=== PATIENT | female | born 1990 | race Caucasian/White ===

== ENCOUNTER 2017-09-07 11:58 | Emergency (ER) | payer MEDICAID, OTHER ==
[~2017-09-07] VITALS: Ht 165.1 cm; Wt 54.4 kg
[~2017-09-07 11:58] MED LIST: AMOX-355 PO; HYDR1TAB PO; HYDR1TAB66 PO; PRD20T PO; PS30T PO; prednisone PO
--- OUTSIDE RECORDS SUMMARY | 2017-09-07 12:07 | XMS REPORT | Clinical Summary ---
Author Author Admin, MARY Organization [facility] Address Unknown Phone Unavailable Allergies, Adverse Reactions, Alerts Allergy Name Reaction Description Start Date Severity Status Provider No Known Allergies Carmen MONTOYA Conditions or Problems Problem Name Problem Code Onset Date Status Entry Date Provider Comment Standard Description Annotate SINUSITIS, ACUTE 461.9 Resolved Twin Franks MD Acute sinusitis, unspecified ROUTINE GYNECOLOGICAL EXAMINATION V72.31 Active Twin Franks MD Routine gynecological examination CONTRACEPTIVE MANAGEMENT V25.09 Active Twin Franks MD Encounter for other general counseling and advice on contraceptive management SINUSITIS, ACUTE 461.9 Resolved Karen Cummins MD PhD Acute sinusitis, unspecified HEADACHE, TENSION 307.81 Resolved Karen Cummins MD PhD Tension headache Vaginitis 616.10 Resolved Twin Franks MD Vaginitis and vulvovaginitis, unspecified UTI 599.0 Resolved Twin Franks MD Urinary tract infection, site not specified Sinusitis, acute 461.9 Active Twin Franks MD Acute sinusitis, unspecified Vaginal discharge 623.5 Active Twin Franks MD Leukorrhea, not specified as infective SINUSITIS, ACUTE ICD-461.9 Inactive Twin Franks MD SINUSITIS, ACUTE ICD-461.9 Inactive Karen Cummins MD PhD HEADACHE, TENSION ICD-307.81 Inactive Karen Cummins MD PhD Vaginitis ICD-616.10 Inactive Twin Franks MD UTI ICD-599.0 Inactive Twin Franks MD Medication List Medication Instructions Start Date Stop Date Generic Name NDC Status Provider Patient Instruction PREDNISONE 20 MG ORAL TABS 2 po qd x 3 days PREDNISONE 34968682764 No Longer Active Twin Franks MD Active AMOXICILLIN 500 MG ORAL CAPS 1 po TID x 10 days AMOXICILLIN 65325084721 Active Twin Franks MD Active CIPRO 500 MG TAB 1 tablet by mouth twice daily CIPROFLOXACIN HCL 57038096101 No Longer Active Lev Huang MD Active FIORICET 325-50-40 MG TAB 1 tablet by mouth four times daily as needed 05/27 [id number] 71912427087 No Longer Active Lev Huang MD Active FLAGYL 500 MG TABS 1 pill by mouth twice daily METRONIDAZOLE 83935193905 No Longer Active Karen Cummins MD PhD Active PREDNISONE 20 MG TAB 2 tabs daily for 4 days, 1 tab daily for 4 days, 1/2 tab daily for 4 days PREDNISONE 64992854231 No Longer Active Karen Cummins MD PhD Active AMOXICILLIN 500 MG CAPS 2 po BID x 10 days AMOXICILLIN 54025727074 No Longer Active Twin Franks MD Active IBUPROFEN 800 MG TABS 1 tab every 8 hours as needed IBUPROFEN 73974270370 No Longer Active Twin Franks MD Active FLONASE 50 MCG/ACT SUSP 2 puffs in each nostril daily FLUTICASONE PROPIONATE 14428808364 No Longer Active Twin Franks MD Active AMOXICILLIN 500 MG CAPS 2 po BID x 10 days AMOXICILLIN 62172697139 No Longer Active Twin Franks MD Active AMOXICILLIN 500 MG CAPS 2 po BID x 10 days AMOXICILLIN 76668492326 No Longer Active Twin Franks MD Active FLONASE 50 MCG/ACT SUSP 2 puffs in each nostril daily FLONASE 50 MCG/ACT SUSP 7446643 FLUTICASONE PROPIONATE Inactive IBUPROFEN 800 MG TABS 1 tab every 8 hours as needed IBUPROFEN 800 MG TABS 194192 IBUPROFEN Inactive PREDNISONE 20 MG TAB 2 tabs daily for 4 days, 1 tab daily for 4 days, 1/2 tab daily for 4 days PREDNISONE 20 MG TAB 751248 PREDNISONE Inactive FIORICET 325-50-40 MG TAB 1 tablet by mouth four times daily as needed 05/27 FIORICET 325-50-40 MG TAB [id number] Inactive AMOXICILLIN 500 MG CAPS 2 po BID x 10 days AMOXICILLIN 500 MG CAPS 835100 AMOXICILLIN Inactive AMOXICILLIN 500 MG CAPS 2 po BID x 10 days AMOXICILLIN 500 MG CAPS 615616 AMOXICILLIN Inactive AMOXICILLIN 500 MG CAPS 2 po BID x 10 days AMOXICILLIN 500 MG CAPS 334547 AMOXICILLIN Inactive FLAGYL 500 MG TABS 1 pill by mouth twice daily FLAGYL 500 MG TABS 671231 METRONIDAZOLE Inactive CIPRO 500 MG TAB 1 tablet by mouth twice daily CIPRO 500 MG TAB 679261 CIPROFLOXACIN HCL Inactive PREDNISONE 20 MG ORAL TABS 2 po qd x 3 days PREDNISONE 20 MG ORAL TABS 493646 PREDNISONE Inactive Vital Signs Date Name Value Unit Range Description blood pressure, diastolic 75 mm[Hg] BP lee blood pressure, systolic 113 mm[Hg] BP sys height E&M 65 [in_us] Bdy height pulse rate E&M 93 /min Heart rate temperature E&M 96.6 [degF] Body temperature weight E&M 107.8 [lb_av] Weight Measured blood pressure, diastolic 74 mm[Hg] BP lee blood pressure, systolic 114 mm[Hg] BP sys height E&M 65 [in_us] Bdy height pulse rate E&M 78 /min Heart rate temperature E&M 98.0 [degF] Body temperature weight E&M 119.5 [lb_av] Weight Measured Diagnostic Results Date Name Value Unit Range Description Lab Report: Chlamydia/GC APTIMA/35175 - Lab chlamydia DNA probe NOT DETECTED NOT DETECTED Lab Report: Chlamydia/GC APTIMA/33098 - Microbiology Neisseria gonorrhoeae DNA probe NOT DETECTED NOT DETECTED Encounters Code Encounter Date Provider Facility CPT-61972 Level 4 Est. Patient 16:40:46 CDT Twin Franks MD [facility] CPT-57976 Level 3 Est. Patient 14:26:47 CDT Lev Huang MD [facility] CPT-77396 Level 3 Est. Patient 15:32:55 CDT Karen Cummins MD PhD [facility] CPT-17126 Level 3 Est. Patient 16:58:58 CDT Twin Franks MD [facility] CPT-37451 Level 3 Est. Patient 15:10:24 CDT Twin Franks MD [facility] CPT-16581 Level 3 Est. 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 Patient 16:59:32 DIRECTOR OF INDUSTRIAL RELATIONS Twin Franks MD [facility] Procedures Code Procedure Name Date Entry Date Standard Description CPT-61052 Spec Collection and Handling Fee 16:40:47 CDT CPT-J1055 Depo Provera 150 mg (Medroxyprogesterone) 09:01:32 CDT CPT-71632 Abx/Therapy Injection 09:01:32 CDT CPT-54689 Abx/Therapy Injection 11:43:35 CDT CPT-J1055 Depo Provera 150 mg (Medroxyprogesterone) 15:22:54 CDT CPT-70879 Spec Collection and Handling Fee 15:10:24 CDT
--- OUTSIDE RECORDS SUMMARY | 2017-09-07 12:07 | XMS REPORT | Clinical Summary ---
Author Author Admin, MARY Organization [facility] Address Unknown Phone Unavailable Allergies, Adverse Reactions, Alerts Allergy Name Reaction Description Start Date Severity Status Provider No Known Allergies Arianna Raida Conditions or Problems Problem Name Problem Code [...] Cummins MD PhD Tension headache Vaginitis 616.10 Active Karen Cummins MD PhD Vaginitis and vulvovaginitis, unspecified UTI 599.0 Active Lev Huang MD Urinary tract infection, site not specified SINUSITIS, ACUTE ICD-461.9 Inactive Twin Franks MD SINUSITIS, ACUTE ICD-461.9 Inactive Karen Cummins MD PhD HEADACHE, TENSION ICD-307.81 Inactive Karen Cummins MD PhD Medication List Medication Instructions Start Date Stop Date Generic Name NDC Status Provider Patient Instruction CIPRO 500 MG TAB 1 tablet by mouth twice daily CIPROFLOXACIN HCL 79314167104 No Longer Active Lev Huang MD Active FIORICET 325-50-40 MG TAB 1 tablet by mouth four times daily as needed 05/27 [id number] 36113035149 No Longer Active Lev Huang MD Active FLAGYL 500 MG TABS 1 pill by mouth twice daily METRONIDAZOLE 97010490795 No Longer Active Karen Cummins MD PhD Active PREDNISONE 20 MG TAB 2 tabs daily for 4 days, 1 tab daily for 4 days, 1/2 tab daily for 4 days PREDNISONE 22108086115 No Longer Active Karen Cummins MD PhD Active AMOXICILLIN 500 MG CAPS 2 po BID x 10 days AMOXICILLIN 67212654842 No Longer Active Twin Franks MD Active IBUPROFEN 800 MG TABS 1 tab every 8 hours as needed IBUPROFEN 44673619315 No Longer Active Twin Franks MD Active FLONASE 50 MCG/ACT SUSP 2 puffs in each nostril daily FLUTICASONE PROPIONATE 17265873862 No Longer Active Twin Franks MD Active AMOXICILLIN 500 MG CAPS 2 po BID x 10 days AMOXICILLIN 28740758957 No Longer Active Twin Franks MD Active AMOXICILLIN 500 MG CAPS 2 po BID x 10 days AMOXICILLIN 90751140660 No Longer Active Twin Franks MD Active FLONASE 50 MCG/ACT SUSP 2 puffs in each nostril daily FLONASE 50 MCG/ACT SUSP FLUTICASONE PROPIONATE Inactive IBUPROFEN 800 MG TABS 1 tab every 8 hours as needed IBUPROFEN 800 MG TABS 378412 IBUPROFEN Inactive PREDNISONE 20 MG TAB 2 tabs daily for 4 days, 1 tab daily for 4 days, 1/2 tab daily for 4 days PREDNISONE 20 MG TAB 541190 PREDNISONE Inactive FIORICET 325-50-40 MG TAB 1 tablet by mouth four times daily as needed 05/27 FIORICET 325-50-40 MG TAB [id number] Inactive AMOXICILLIN 500 MG CAPS 2 po BID x 10 days AMOXICILLIN 500 MG CAPS 730193 AMOXICILLIN Inactive AMOXICILLIN 500 MG CAPS 2 po BID x 10 days AMOXICILLIN 500 MG CAPS 727887 AMOXICILLIN Inactive AMOXICILLIN 500 MG CAPS 2 po BID x 10 days AMOXICILLIN 500 MG CAPS 323612 AMOXICILLIN Inactive FLAGYL 500 MG TABS 1 pill by mouth twice daily FLAGYL 500 MG TABS 123638 METRONIDAZOLE Inactive CIPRO 500 MG TAB 1 tablet by mouth twice daily CIPRO 500 MG TAB 107294 CIPROFLOXACIN HCL Inactive Vital Signs Date Name Value Unit Range Description blood pressure, diastolic - 8462-4 74 mm[Hg] BP lee blood pressure, systolic - 8480-6 114 mm[Hg] BP sys height E&M - 8302-2 65 [in_us] Bdy height pulse rate E&M - 8867-4 78 /min Heart rate temperature E&M 98.0 [degF] Body temperature weight E&M - 3141-9 119.5 [lb_av] Weight Measured Encounters Code Encounter Date Provider Facility CPT-53496 Level 3 Est. Patient 14:26:47 CDT Lev Huang MD [facility] CPT-18853 Level 3 Est. Patient 15:32:55 CDT Karen Cummins MD PhD [facility] CPT-10919 Level 3 Est. Patient 16:58:58 CDT Twin Franks MD [facility] CPT-25717 Level 3 Est. Patient 15:10:24 CDT Twin Franks MD [facility] CPT-85581 Level 3 Est. 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
--- OUTSIDE RECORDS SUMMARY | 2017-09-07 12:08 | XMS REPORT | Clinical Summary ---
Author Author Admin, MARY Organization [facility] Address Unknown Phone Unavailable Allergies, Adverse Reactions, Alerts Allergy Name Reaction Description Start Date Severity Status Provider No Known Allergies Jenni Lyman MA Conditions or Problems Problem Name Problem Code [...] infection, site not specified Sinusitis, acute 461.9 Resolved Twin Franks MD Acute sinusitis, unspecified Vaginal discharge 623.5 Resolved Twin Franks MD Leukorrhea, not specified as infective Headache 784.0 Active Jillina Harjinder GUERRERO Headache Drug abuse 305.90 Active Jillina Frazell DRUM STRAIGHTENER Other, mixed, or unspecified drug abuse, unspecified use Anxiety 300.00 Active Jillina Frazell DRUM STRAIGHTENER Anxiety state, unspecified DYSURIA 788.1 Resolved Twin Franks MD Dysuria Urinary tract infection 599.0 Active Twin Franks MD Urinary tract infection, site not specified Vaginal discharge 623.5 Active Sasha Grande APRN Leukorrhea, not specified as infective SINUSITIS, ACUTE ICD-461.9 Inactive Karen Cummins MD PhD HEADACHE, TENSION ICD-307.81 Inactive Karen Cummins MD PhD SINUSITIS, ACUTE ICD-461.9 Inactive Twin Franks MD Sinusitis, acute ICD-461.9 Inactive Twin Franks MD Vaginal discharge ICD-623.5 Inactive Twin Franks MD DYSURIA ICD-788.1 Inactive Twin Franks MD 08/07 Vaginitis ICD-616.10 Inactive Twin Franks MD UTI ICD-599.0 Inactive Twin Franks MD Medication List Medication Instructions Start Date Stop Date Generic Name NDC Status Provider Patient Instruction FLAGYL 500 MG ORAL TABLET 4 tabs (2gms) po x1. do not mix with ETOH METRONIDAZOLE 31937914106 Active Sasha Grande APRN Active MACROBID 100 MG ORAL CAPSULE 1 cap by mouth twice daily NITROFURANTOIN MONOHYD MACRO 07949095884 Active Geraldllina Harjinder GUERRERO Active BACTRIM DS 800-160 MG ORAL TABLET 1 po BID x 7 days SULFAMETHOXAZOLE-TRIMETHOPRIM 90648255911 No Longer Active Twin Franks MD Active CELEXA 20 MG ORAL TABLET Take one tab po daily CITALOPRAM HYDROBROMIDE 24802637563 Active Twin Franks MD Active PHENAZOPYRIDINE HCL 100 MG ORAL TABLET 1 tab po bid PHENAZOPYRIDINE HCL 29217854631 No Longer Active Twin Franks MD Active CIPRO 500 MG ORAL TABLET 1 tablet by mouth twice daily CIPROFLOXACIN HCL 18388553943 No Longer Active Twin Franks MD Active TRAMADOL HCL 50 MG ORAL TABLET 1-2 tablets every 6 hours as needed for pain TRAMADOL HCL 58244967492 No Longer Active Jillina Frazell DRUM STRAIGHTENER Active CYCLOBENZAPRINE HCL 10 MG ORAL TABLET 1 tab po q pm, prn tamayo CYCLOBENZAPRINE HCL 53738383316 No Longer Active Jillina Frazell DRUM STRAIGHTENER Active DIFLUCAN 100 MG ORAL TABLET 1 tablet by mouth x 1 FLUCONAZOLE 99314871436 No Longer Active Jillina Frazell DRUM STRAIGHTENER Active BUSPIRONE HCL 7.5 MG ORAL TABLET 1 pill twice daily, for anxiety BUSPIRONE HCL 77922456699 No Longer Active Jillina Frazell DRUM STRAIGHTENER Active FLAGYL 500 MG ORAL TABLET 1 tab po bid for 7 days METRONIDAZOLE 17607840493 No Longer Active Jillina Fraalessandral DRUM STRAIGHTENER Active PREDNISONE 20 MG ORAL TABLET 2 po qd x 3 days PREDNISONE 81942192442 No Longer Active Twin Franks MD Active AMOXICILLIN 500 MG ORAL CAPSULE 1 po TID x 10 days AMOXICILLIN 59480484665 No Longer Active Twin Franks MD Active CIPRO 500 MG ORAL TABLET 1 tablet by mouth twice daily CIPROFLOXACIN HCL 73699173220 No Longer Active Lev Huang MD Active FIORICET 325-50-40 MG TAB 1 tablet by mouth four times daily as needed 05/27 [id number] 50920548569 No Longer Active Lev Huang MD Active FLAGYL 500 MG ORAL TABLET 1 pill by mouth twice daily METRONIDAZOLE 50858441859 No Longer Active Karen Cummins MD PhD Active PREDNISONE 20 MG ORAL TABLET 2 tabs daily for 4 days, 1 tab daily for 4 days, 1/2 tab daily for 4 days PREDNISONE 48394541817 No Longer Active Karen Cummins MD PhD Active AMOXICILLIN 500 MG ORAL CAPSULE 2 po BID x 10 days AMOXICILLIN 24704129406 No Longer Active Twin Franks MD Active IBUPROFEN 800 MG ORAL TABLET 1 tab every 8 hours as needed 03/15 IBUPROFEN 76340398224 No Longer Active Twin Franks MD Active FLONASE 50 MCG/ACT NASAL SUSPENSION 2 puffs in each nostril daily FLUTICASONE PROPIONATE 84135723343 No Longer Active Twin Franks MD Active AMOXICILLIN 500 MG ORAL CAPSULE 2 po BID x 10 days AMOXICILLIN 47342487944 No Longer Active Twin Franks MD Active AMOXICILLIN 500 MG ORAL CAPSULE 2 po BID x 10 days AMOXICILLIN 55425763783 No Longer Active Twin Franks MD Active FLONASE 50 MCG/ACT NASAL SUSPENSION 2 puffs in each nostril daily FLONASE 50 MCG/ACT NASAL SUSPENSION 9681823 FLUTICASONE PROPIONATE Inactive IBUPROFEN 800 MG ORAL TABLET 1 tab every 8 hours as needed 03/15 IBUPROFEN 800 MG ORAL TABLET 281593 IBUPROFEN Inactive PREDNISONE 20 MG ORAL TABLET 2 tabs daily for 4 days, 1 tab daily for 4 days, 1/2 tab daily for 4 days PREDNISONE 20 MG ORAL TABLET 884664 PREDNISONE Inactive FIORICET 325-50-40 MG TAB 1 tablet by mouth four times daily as needed 05/27 FIORICET 325-50-40 MG TAB [id number] Inactive FLAGYL 500 MG ORAL TABLET 1 tab po bid for 7 days FLAGYL 500 MG ORAL TABLET 247151 METRONIDAZOLE Inactive BUSPIRONE HCL 7.5 MG ORAL TABLET 1 pill twice daily, for anxiety BUSPIRONE HCL 7.5 MG ORAL TABLET 496138 BUSPIRONE HCL Inactive DIFLUCAN 100 MG ORAL TABLET 1 tablet by mouth x 1 DIFLUCAN 100 MG ORAL TABLET 052193 FLUCONAZOLE Inactive CYCLOBENZAPRINE HCL 10 MG ORAL TABLET 1 tab po q pm, prn tamayo 10/11 CYCLOBENZAPRINE HCL 10 MG ORAL TABLET 185566 CYCLOBENZAPRINE HCL Inactive TRAMADOL HCL 50 MG ORAL TABLET 1-2 tablets every 6 hours as needed for pain TRAMADOL HCL 50 MG ORAL TABLET 289808 TRAMADOL HCL Inactive CIPRO 500 MG ORAL TABLET 1 tablet by mouth twice daily CIPRO 500 MG ORAL TABLET 544449 CIPROFLOXACIN HCL Inactive PHENAZOPYRIDINE HCL 100 MG ORAL TABLET 1 tab po bid PHENAZOPYRIDINE HCL 100 MG ORAL TABLET 2024643 PHENAZOPYRIDINE HCL Inactive AMOXICILLIN 500 MG ORAL CAPSULE 2 po BID x 10 days AMOXICILLIN 500 MG ORAL CAPSULE 727298 AMOXICILLIN Inactive AMOXICILLIN 500 MG ORAL CAPSULE 2 po BID x 10 days AMOXICILLIN 500 MG ORAL CAPSULE 411039 AMOXICILLIN Inactive AMOXICILLIN 500 MG ORAL CAPSULE 2 po BID x 10 days AMOXICILLIN 500 MG ORAL CAPSULE 263398 AMOXICILLIN Inactive FLAGYL 500 MG ORAL TABLET 1 pill by mouth twice daily FLAGYL 500 MG ORAL TABLET 700510 METRONIDAZOLE Inactive CIPRO 500 MG ORAL TABLET 1 tablet by mouth twice daily CIPRO 500 MG ORAL TABLET 989023 CIPROFLOXACIN HCL Inactive AMOXICILLIN 500 MG ORAL CAPSULE 1 po TID x 10 days AMOXICILLIN 500 MG ORAL CAPSULE 703720 AMOXICILLIN Inactive PREDNISONE 20 MG ORAL TABLET 2 po qd x 3 days PREDNISONE 20 MG ORAL TABLET 864577 PREDNISONE Inactive BACTRIM DS 800-160 MG ORAL TABLET 1 po BID x 7 days BACTRIM DS 800-160 MG ORAL TABLET 371852 SULFAMETHOXAZOLE-TRIMETHOPRIM Inactive Vital Signs Date Name Value Unit Range Description blood pressure, diastolic 73 mm[Hg] BP lee blood pressure, systolic 122 mm[Hg] BP sys height E&M 65 [in_us] Bdy height pulse rate E&M 72 /min Heart rate temperature E&M 98.1 [degF] Body temperature weight E&M 118 [lb_av] Weight Measured blood pressure, diastolic 88 mm[Hg] BP lee blood pressure, systolic 119 mm[Hg] BP sys height E&M 65 [in_us] Bdy height pulse rate E&M 98 /min Heart rate temperature E&M 98.3 [degF] Body temperature weight E&M 109.0 [lb_av] Weight Measured blood pressure, diastolic 78 mm[Hg] BP lee blood pressure, systolic 14 mm[Hg] BP sys height E&M 65 [in_us] Bdy height pulse rate E&M 87 /min Heart rate temperature E&M 98.1 [degF] Body temperature weight E&M 113 [lb_av] Weight Measured blood pressure, diastolic 65 mm[Hg] BP lee blood pressure, systolic 107 mm[Hg] BP sys pulse rate E&M 74 /min Heart rate temperature E&M 97.0 [degF] Body temperature weight E&M 110.19 [lb_av] Weight Measured blood pressure, diastolic 75 mm[Hg] BP lee [...] Name Value Unit Range Description Lab Report: CBC W/DIFF, UHCG, UADIP W/MICRO, AUTO - Chemistry human chorionic gonadotropin, urine, qualitative (urine test) Negative Negative protein, total urine random Negative mg/dL Negative RBC, urine, dipstick Trace-intact Negative Lab Report: CBC W/DIFF, UHCG, UADIP W/MICRO, AUTO - Hematology leukocyte count, blood 7.4 10^3/MM^3 10*3/mm3 4.6-10.2 neutrophils as percent of blood leukocytes 63.2 % 42.2-75.2 monocytes as percent of blood leukocytes 5.7 % 1.7-9.3 lymphocytes as percent of blood leukocytes 24.2 % 20.5-51.1 erythrocyte (RBC) count 4.46 10^6/MM^3 10*6/mm3 3.80-5.80 hemoglobin, blood 15.0 g/dL 12.0-16.0 hematocrit, blood 43.5 % 37.0-47.0 mean corpuscular volume, RBC 97 fL 80-97 mean corpuscular hemoglobin, RBC 33.6 pg 27.0-31.2 mean corpuscular hemoglobin concentration, RBC 34.5 G/DL % 31.8- 35.4 red blood cell distribution width 12.5 % 13.0-18.0 platelet count 229 10^3/MM^3 10*3/mm3 142-424 Lab Report: CBC W/DIFF, UHCG, UADIP W/MICRO, AUTO - Urinalysis glucose, urine, semiquantitative Negative Negative ketones, urine, by test strip Negative Negative bilirubin, urine Negative Negative urine color Light yellow Colorless;Lightyellow;Straw;Yellow appearance, urine Slightly Cloudy Clear specific gravity, urine 1.010 1.000-1.030 pH, urine, semiquantitative 7.0 5.0-8.5 urobilinogen, urine, semiquantitative (dipstick) 0.2 E.U./dL Normal leukocyte esterase, urine, by dipstick 1+ Negative nitrite, urine, semiquantitative Negative Negative Lab Report: Chlamydia/GC APTIMA/93358 - Lab chlamydia DNA probe NOT DETECTED NOT DETECTED chlamydia DNA probe NOT DETECTED NOT DETECTED chlamydia DNA probe NOT DETECTED NOT DETECTED Lab Report: Chlamydia/GC APTIMA/70950 - Microbiology Neisseria gonorrhoeae DNA probe NOT DETECTED NOT DETECTED Neisseria gonorrhoeae DNA probe NOT DETECTED NOT DETECTED Neisseria gonorrhoeae DNA probe NOT DETECTED NOT DETECTED Lab Report: Comp. Metabolic Panel, Free Thyroxine (L), Thyroid Stimulati ... - Chemistry sodium, serum 140 mmol/L 620-212 1428/08/16 carbon dioxide, venous blood 32.2 mmol/L 21.0-32.0 potassium, serum 4.5 mmol/L 3.5-5.2 chloride, serum 106 mmol/L 98-107 blood glucose 85 mg/dL 65-110 urea nitrogen, blood 6 mg/dL 7-18 creatinine, serum 0.71 mg/dL 0.60-1.30 alanine aminotransferase (SGPT), serum 28 U/L 12-78 aspartate aminotransferase (SGOT), serum 19 U/L 15-37 calcium, serum 9.0 mg/dL 8.5-10.1 bilirubin, serum, total 0.50 mg/dL 0.00-1.00 thyroxine, serum, free 0.92 ng/dL 0.59-1.17 TSH 0.77 m[iU]/mL 0.36-3.74 Lab Report: UADIP W/MICRO, AUTO - Urinalysis urine color Unable to read macroscopic due to interfering substance Colorless;Lightyellow;Straw;Yellow appearance, urine orange hazy Clear Lab Report: UADIP W/MICRO, AUTO, Wet Prep - Chemistry protein, total urine random Negative mg/dL Negative RBC, urine, dipstick Negative Negative Lab Report: UADIP W/MICRO, AUTO, Wet Prep - Urinalysis urobilinogen, urine, semiquantitative (dipstick) 0.2 E.U./dL Normal leukocyte esterase, urine, by dipstick 3+ Negative nitrite, urine, semiquantitative Negative Negative glucose, urine, semiquantitative Negative Negative ketones, urine, by test strip Negative Negative bilirubin, urine Negative Negative urine color Dark yellow Colorless;Lightyellow;Straw;Yellow appearance, urine Cloudy Clear specific gravity, urine 1.015 1.000-1.030 pH, urine, semiquantitative 6.0 5.0-8.5 Encounters Code Encounter Date Provider Facility CPT-80294 Level 3 Est. 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 Patient 16:51:52 CDT Twin Franks MD [facility] CPT-72396 Level 3 Est. Patient 10:46:44 CDT Sasha Grande [facility] CPT-84109 Level 3 Est. Patient 11:22:49 CDT Sasha Grande [facility] CPT-84736 Level 4 Est. Patient 16:40:46 CDT Twin Franks MD [facility] CPT-83301 Level 3 Est. Patient 14:26:47 CDT Lev Huang MD [facility] CPT-09487 Level 3 Est. Patient 15:32:55 CDT Karen Cummins MD PhD [facility] CPT-76389 Level 3 Est. Patient 16:58:58 CDT Twin Franks MD [facility] CPT-70404 Level 3 Est. Patient 15:10:24 CDT Twin Franks MD [facility] CPT-53750 Level 3 Est. 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 Patient 16:59:32 HUMAN RESOURCES BENEFITS SPECIALIST Twin Franks MD [facility] Procedures Code Procedure Name Date Entry Date Standard Description CPT-56967 Spec Collection and Handling Fee 11:23:53 HUMAN RESOURCES BENEFITS SPECIALIST CPT-32105 IM or SQ Injection 12:06:22 CDT CPT-J1885 Toradol 30 mg (Ketorolac) 11:30:17 CDT CPT-61469 Spec Collection and Handling Fee 16:40:47 CDT CPT-J1055 Depo Provera 150 mg (Medroxyprogesterone) 09:01:32 CDT CPT-71878 Abx/Therapy Injection 09:01:32 CDT CPT-91849 Abx/Therapy Injection 11:43:35 CDT CPT-J1055 Depo Provera 150 mg (Medroxyprogesterone) 15:22:54 CDT CPT-62269 Spec Collection and Handling Fee 15:10:24 CDT
--- OUTSIDE RECORDS SUMMARY | 2017-09-07 12:09 | XMS REPORT | Clinical Summary ---
Author Author Admin, MARY Organization [facility] Address Unknown Phone Unavailable Allergies, Adverse [...] Headache Drug abuse 305.90 Active Jillina Frazell SENIOR STOCK PLAN ADMINISTRATOR Other, mixed, or unspecified drug abuse, unspecified use Anxiety 300.00 Active Jillina Frazell SENIOR STOCK PLAN ADMINISTRATOR Anxiety state, unspecified DYSURIA 788.1 Resolved Twin Franks MD Dysuria Urinary tract infection 599.0 Active Twin Franks MD Urinary tract infection, site not specified SINUSITIS, ACUTE ICD-461.9 Inactive Twin Franks MD SINUSITIS, ACUTE ICD-461.9 Inactive Karen Cummins MD PhD HEADACHE, TENSION ICD-307.81 Inactive Karen Cummins MD PhD Vaginitis ICD-616.10 Inactive Twin Franks MD UTI ICD-599.0 Inactive Twin Franks MD Sinusitis, acute ICD-461.9 Inactive Twin Franks MD Vaginal discharge ICD-623.5 Inactive Twin Franks MD DYSURIA ICD-788.1 Inactive Twin Franks MD 08/07 Medication List Medication Instructions Start Date Stop Date Generic Name NDC Status Provider Patient Instruction BACTRIM DS 800-160 MG ORAL TABS 1 po BID x 7 days SULFAMETHOXAZOLE-TRIMETHOPRIM 38143502147 Active Twin Franks MD Active CELEXA 20 MG ORAL TABLET Take one tab po daily CITALOPRAM HYDROBROMIDE 67652458608 Active Twin Franks MD Active PHENAZOPYRIDINE HCL 100 MG ORAL TABS 1 tab po bid PHENAZOPYRIDINE HCL 08668845089 No Longer Active Twin Franks MD Active CIPRO 500 MG TAB 1 tablet by mouth twice daily CIPROFLOXACIN HCL 58690922740 No Longer Active Twin Franks MD Active TRAMADOL HCL 50 MG TABS 1-2 tablets every 6 hours as needed for pain TRAMADOL HCL 86416498560 No Longer Active Jillina Frazell SENIOR STOCK PLAN ADMINISTRATOR Active CYCLOBENZAPRINE HCL 10 MG TABS 1 tab po q pm, prn tamayo CYCLOBENZAPRINE HCL 19431613368 No Longer Active Jillina Frazell SENIOR STOCK PLAN ADMINISTRATOR Active DIFLUCAN 100 MG TAB 1 tablet by mouth x 1 FLUCONAZOLE 85974474215 No Longer Active Jillina Frazell SENIOR STOCK PLAN ADMINISTRATOR Active BUSPIRONE HCL 7.5 MG ORAL TABS 1 pill twice daily, for anxiety BUSPIRONE HCL 33643031309 No Longer Active Jillina Frazell SENIOR STOCK PLAN ADMINISTRATOR Active FLAGYL 500 MG ORAL TABS 1 tab po bid for 7 days METRONIDAZOLE 84485122868 No Longer Active Jillina Fraalessandral SENIOR STOCK PLAN ADMINISTRATOR Active PREDNISONE 20 MG ORAL TABS 2 po qd x 3 days PREDNISONE 10835174746 No Longer Active Twin Franks MD Active AMOXICILLIN 500 MG ORAL CAPS 1 po TID x 10 days AMOXICILLIN 68807431954 No Longer Active Twin Franks MD Active CIPRO 500 MG TAB 1 tablet by mouth twice daily CIPROFLOXACIN HCL 91042354112 No Longer Active Lev Huang MD Active FIORICET 325-50-40 MG TAB 1 tablet by mouth four times daily as needed 05/27 [id number] 77250225720 No Longer Active Lev Huang MD Active FLAGYL 500 MG TABS 1 pill by mouth twice daily METRONIDAZOLE 61118840277 No Longer Active Karen Cummins MD PhD Active PREDNISONE 20 MG TAB 2 tabs daily for 4 days, 1 tab daily for 4 days, 1/2 tab daily for 4 days PREDNISONE 94659845678 No Longer Active Karen Cummins MD PhD Active AMOXICILLIN 500 MG CAPS 2 po BID x 10 days AMOXICILLIN 74859846647 No Longer Active Twin Franks MD Active IBUPROFEN 800 MG TABS 1 tab every 8 hours as needed IBUPROFEN 33062169596 No Longer Active Twin Franks MD Active FLONASE 50 MCG/ACT SUSP 2 puffs in each nostril daily FLUTICASONE PROPIONATE 80584696379 No Longer Active Twin Franks MD Active AMOXICILLIN 500 MG CAPS 2 po BID x 10 days AMOXICILLIN 59538625611 No Longer Active Twin Franks MD Active AMOXICILLIN 500 MG CAPS 2 po BID x 10 days AMOXICILLIN 47282605583 No Longer Active Twin Franks MD Active FLONASE 50 MCG/ACT SUSP 2 puffs in each nostril daily FLONASE 50 MCG/ACT SUSP 8614254 FLUTICASONE PROPIONATE Inactive IBUPROFEN 800 MG TABS 1 tab every 8 hours as needed IBUPROFEN 800 MG TABS 768597 IBUPROFEN Inactive PREDNISONE 20 MG TAB 2 tabs daily for 4 days, 1 tab daily for 4 days, 1/2 tab daily for 4 days PREDNISONE 20 MG TAB 783858 PREDNISONE Inactive FIORICET 325-50-40 MG TAB 1 tablet by mouth four times daily as needed 05/27 FIORICET 325-50-40 MG TAB [id number] Inactive FLAGYL 500 MG ORAL TABS 1 tab po bid for 7 days FLAGYL 500 MG ORAL TABS 148666 METRONIDAZOLE Inactive BUSPIRONE HCL 7.5 MG ORAL TABS 1 pill twice daily, for anxiety BUSPIRONE HCL 7.5 MG ORAL TABS 798527 BUSPIRONE HCL Inactive DIFLUCAN 100 MG TAB 1 tablet by mouth x 1 DIFLUCAN 100 MG TAB 727817 FLUCONAZOLE Inactive CYCLOBENZAPRINE HCL 10 MG TABS 1 tab po q pm, prn tamayo CYCLOBENZAPRINE HCL 10 MG TABS 271146 CYCLOBENZAPRINE HCL Inactive TRAMADOL HCL 50 MG TABS 1-2 tablets every 6 hours as needed for pain TRAMADOL HCL 50 MG TABS 846080 TRAMADOL HCL Inactive CIPRO 500 MG TAB 1 tablet by mouth twice daily CIPRO 500 MG TAB 260813 CIPROFLOXACIN HCL Inactive PHENAZOPYRIDINE HCL 100 MG ORAL TABS 1 tab po bid PHENAZOPYRIDINE HCL 100 MG ORAL TABS 1255485 PHENAZOPYRIDINE HCL Inactive AMOXICILLIN 500 MG CAPS 2 po BID x 10 days AMOXICILLIN 500 MG CAPS 663723 AMOXICILLIN Inactive AMOXICILLIN 500 MG CAPS 2 po BID x 10 days AMOXICILLIN 500 MG CAPS 326366 AMOXICILLIN Inactive AMOXICILLIN 500 MG CAPS 2 po BID x 10 days AMOXICILLIN 500 MG CAPS 844425 AMOXICILLIN Inactive FLAGYL 500 MG TABS 1 pill by mouth twice daily FLAGYL 500 MG TABS 315649 METRONIDAZOLE Inactive CIPRO 500 MG TAB 1 tablet by mouth twice daily CIPRO 500 MG TAB 055167 CIPROFLOXACIN HCL Inactive AMOXICILLIN 500 MG ORAL CAPS 1 po TID x 10 days AMOXICILLIN 500 MG ORAL CAPS 862839 AMOXICILLIN Inactive PREDNISONE 20 MG ORAL TABS 2 po qd x 3 days PREDNISONE 20 MG ORAL TABS 499025 PREDNISONE Inactive Vital Signs Date Name Value Unit Range Description blood pressure, diastolic 88 mm[Hg] BP lee [...] urine, semiquantitative Negative Negative Lab Report: Chlamydia/GC APTIMA/33777 - Lab chlamydia DNA probe NOT DETECTED NOT DETECTED chlamydia DNA probe NOT DETECTED NOT DETECTED Lab Report: Chlamydia/GC APTIMA/41610 - Microbiology Neisseria gonorrhoeae DNA probe NOT DETECTED NOT DETECTED Neisseria gonorrhoeae DNA probe NOT DETECTED NOT DETECTED Lab Report: Comp. Metabolic Panel, Free Thyroxine (L), Thyroid Stimulati ... - Chemistry sodium, serum 140 mmol/L 240-961 6563/08/16 carbon dioxide, venous blood 32.2 mmol/L 21.0-32.0 [...] 0.92 ng/dL 0.59-1.17 TSH 0.77 m[iU]/mL 0.36-3.74 Encounters Code Encounter Date Provider Facility CPT-97779 Level 3 Est. Patient 16:51:52 CDT Twin Franks MD [facility] CPT-52206 Level 3 Est. Patient 10:46:44 CDT Sasha Grande [facility] CPT-03559 Level 3 Est. Patient 11:22:49 CDT Sasha Grande [facility] CPT-83972 Level 4 Est. Patient 16:40:46 CDT Twin Franks MD [facility] CPT-75694 Level 3 Est. Patient 14:26:47 CDT Lev Huang MD [facility] CPT-05509 Level 3 Est. Patient 15:32:55 CDT Karen Cummins MD PhD [facility] CPT-28204 Level 3 Est. Patient 16:58:58 CDT Twin Franks MD [facility] CPT-07241 Level 3 Est. Patient 15:10:24 CDT Twin Franks MD [facility] CPT-40594 Level 3 Est. 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 Patient 16:59:32 SOFTWARE QUALITY MANAGER wTin Franks MD [facility] Procedures Code Procedure Name Date Entry Date Standard Description CPT-57033 IM or SQ Injection 12:06:22 CDT CPT-J1885 Toradol 30 mg (Ketorolac) 11:30:17 CDT CPT-43968 Spec Collection and Handling Fee 16:40:47 CDT CPT-J1055 Depo Provera 150 mg (Medroxyprogesterone) 09:01:32 CDT CPT-41678 Abx/Therapy Injection 09:01:32 CDT CPT-63976 Abx/Therapy Injection 11:43:35 CDT CPT-J1055 Depo Provera 150 mg (Medroxyprogesterone) 15:22:54 CDT CPT-27361 Spec Collection and Handling Fee 15:10:24 CDT
--- OUTSIDE RECORDS SUMMARY | 2017-09-07 12:09 | XMS REPORT | Clinical Summary ---
Author Author Admin, MARY Organization [facility] Address Unknown Phone Unavailable Allergies, Adverse [...] 2 po qd x 3 days PREDNISONE 79973369541 Active Twin Franks MD Active AMOXICILLIN 500 MG ORAL CAPS 1 po TID x 10 days AMOXICILLIN 02026849490 Active Twin Franks MD Active CIPRO 500 MG TAB 1 tablet by mouth twice daily CIPROFLOXACIN HCL 04919643474 No Longer Active Lev Huang MD Active FIORICET 325-50-40 MG TAB 1 tablet by mouth four times daily as needed 05/27 [id number] 93663526557 No Longer Active Lev Huang MD Active FLAGYL 500 MG TABS 1 pill by mouth twice daily METRONIDAZOLE 84949491349 No Longer Active Karen Cummins MD PhD Active PREDNISONE 20 MG TAB 2 tabs daily for 4 days, 1 tab daily for 4 days, 1/2 tab daily for 4 days PREDNISONE 17218403038 No Longer Active Karen Cummins MD PhD Active AMOXICILLIN 500 MG CAPS 2 po BID x 10 days AMOXICILLIN 14972158468 No Longer Active Twin Franks MD Active IBUPROFEN 800 MG TABS 1 tab every 8 hours as needed IBUPROFEN 70367477974 No Longer Active Twin Franks MD Active FLONASE 50 MCG/ACT SUSP 2 puffs in each nostril daily FLUTICASONE PROPIONATE 63325229499 No Longer Active Twin Franks MD Active AMOXICILLIN 500 MG CAPS 2 po BID x 10 days AMOXICILLIN 66980392779 No Longer Active Twin Franks MD Active AMOXICILLIN 500 MG CAPS 2 po BID x 10 days AMOXICILLIN 33062194727 No Longer Active Twin Franks MD Active FLONASE 50 MCG/ACT SUSP 2 puffs in each nostril daily FLONASE 50 MCG/ACT SUSP 6865416 FLUTICASONE PROPIONATE Inactive IBUPROFEN 800 MG TABS 1 tab every 8 hours as needed IBUPROFEN 800 MG TABS 635899 IBUPROFEN Inactive PREDNISONE 20 MG TAB 2 tabs daily for 4 days, 1 tab daily for 4 days, 1/2 tab daily for 4 days PREDNISONE 20 MG TAB 801139 PREDNISONE Inactive FIORICET 325-50-40 MG TAB 1 tablet by mouth four times daily as needed 05/27 FIORICET 325-50-40 MG TAB [id number] Inactive AMOXICILLIN 500 MG CAPS 2 po BID x 10 days AMOXICILLIN 500 MG CAPS 196989 AMOXICILLIN Inactive AMOXICILLIN 500 MG CAPS 2 po BID x 10 days AMOXICILLIN 500 MG CAPS 407367 AMOXICILLIN Inactive AMOXICILLIN 500 MG CAPS 2 po BID x 10 days AMOXICILLIN 500 MG CAPS 849575 AMOXICILLIN Inactive FLAGYL 500 MG TABS 1 pill by mouth twice daily FLAGYL 500 MG TABS 753025 METRONIDAZOLE Inactive CIPRO 500 MG TAB 1 tablet by mouth twice daily CIPRO 500 MG TAB 197849 CIPROFLOXACIN HCL Inactive Vital Signs Date Name Value Unit Range Description blood pressure, diastolic - 8462-4 75 mm[Hg] BP lee blood pressure, systolic - 8480-6 113 mm[Hg] BP sys height E&M - 8302-2 65 [in_us] Bdy height pulse rate E&M - 8867-4 93 /min Heart rate temperature E&M 96.6 [degF] Body temperature weight E&M - 3141-9 107.8 [lb_av] Weight Measured blood pressure, diastolic - 8462-4 74 mm[Hg] BP lee blood pressure, systolic - 8480-6 114 mm[Hg] BP sys height E&M - 8302-2 65 [in_us] Bdy height pulse rate E&M - 8867-4 78 /min Heart rate temperature E&M 98.0 [degF] Body temperature weight E&M - 3141-9 119.5 [lb_av] Weight Measured Encounters Code Encounter Date Provider Facility CPT-12791 Level 4 Est. Patient 16:40:46 CDT Twin Franks MD [facility] CPT-69342 Level 3 Est. Patient 14:26:47 CDT Lev Huang MD [facility] CPT-50038 Level 3 Est. Patient 15:32:55 CDT Karen Cummins MD, PhD [facility] CPT-49736 Level 3 Est. Patient 16:58:58 CDT Twin Franks MD [facility] CPT-26203 Level 3 Est. Patient 15:10:24 CDT Twin Franks MD [facility] CPT-24783 Level 3 Est. 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 Patient 16:59:32 PATTERN MOLDER Twin Franks MD [facility] Procedures Code Procedure Name Date Entry Date Standard Description CPT-11430 Spec Collection and Handling Fee 16:40:47 CDT CPT-J1055 Depo Provera 150 mg (Medroxyprogesterone) 09:01:32 CDT CPT-18700 Abx/Therapy Injection 09:01:32 CDT CPT-92760 Abx/Therapy Injection 11:43:35 CDT CPT-J1055 Depo Provera 150 mg (Medroxyprogesterone) 15:22:54 CDT CPT-93543 Spec Collection and Handling Fee 15:10:24 CDT
--- OUTSIDE RECORDS SUMMARY | 2017-09-07 12:09 | XMS REPORT | Clinical Summary ---
Author Author Admin, MARY Organization [facility] Address Unknown Phone Unavailable Allergies, Adverse Reactions, [...] 2 po qd x 3 days PREDNISONE 09097770334 No Longer Active Twin Franks MD Active AMOXICILLIN 500 MG ORAL CAPS 1 po TID x 10 days AMOXICILLIN 08272502610 Active Twin Franks MD Active CIPRO 500 MG TAB 1 tablet by mouth twice daily CIPROFLOXACIN HCL 09670779389 No Longer Active Lev Huang MD Active FIORICET 325-50-40 MG TAB 1 tablet by mouth four times daily as needed 05/27 [id number] 87007728216 No Longer Active Lev Huang MD Active FLAGYL 500 MG TABS 1 pill by mouth twice daily METRONIDAZOLE 19079643967 No Longer Active Karen Cummins MD PhD Active PREDNISONE 20 MG TAB 2 tabs daily for 4 days, 1 tab daily for 4 days, 1/2 tab daily for 4 days PREDNISONE 72517929191 No Longer Active Karen Cummins MD PhD Active AMOXICILLIN 500 MG CAPS 2 po BID x 10 days AMOXICILLIN 27878036118 No Longer Active Twin Franks MD Active IBUPROFEN 800 MG TABS 1 tab every 8 hours as needed IBUPROFEN 48925411380 No Longer Active Twin Franks MD Active FLONASE 50 MCG/ACT SUSP 2 puffs in each nostril daily FLUTICASONE PROPIONATE 14894664011 No Longer Active Twin Franks MD Active AMOXICILLIN 500 MG CAPS 2 po BID x 10 days AMOXICILLIN 29740104334 No Longer Active Twin Franks MD Active AMOXICILLIN 500 MG CAPS 2 po BID x 10 days AMOXICILLIN 44075620567 No Longer Active Twin Franks MD Active FLONASE 50 MCG/ACT SUSP 2 puffs in each nostril daily FLONASE 50 MCG/ACT SUSP 1020240 FLUTICASONE PROPIONATE Inactive IBUPROFEN 800 MG TABS 1 tab every 8 hours as needed IBUPROFEN 800 MG TABS 597412 IBUPROFEN Inactive PREDNISONE 20 MG TAB 2 tabs daily for 4 days, 1 tab daily for 4 days, 1/2 tab daily for 4 days PREDNISONE 20 MG TAB 514520 PREDNISONE Inactive FIORICET 325-50-40 MG TAB 1 tablet by mouth four times daily as needed 05/27 FIORICET 325-50-40 MG TAB [id number] Inactive AMOXICILLIN 500 MG CAPS 2 po BID x 10 days AMOXICILLIN 500 MG CAPS 205673 AMOXICILLIN Inactive AMOXICILLIN 500 MG CAPS 2 po BID x 10 days AMOXICILLIN 500 MG CAPS 307687 AMOXICILLIN Inactive AMOXICILLIN 500 MG CAPS 2 po BID x 10 days AMOXICILLIN 500 MG CAPS 362372 AMOXICILLIN Inactive FLAGYL 500 MG TABS 1 pill by mouth twice daily FLAGYL 500 MG TABS 836969 METRONIDAZOLE Inactive CIPRO 500 MG TAB 1 tablet by mouth twice daily CIPRO 500 MG TAB 171979 CIPROFLOXACIN HCL Inactive PREDNISONE 20 MG ORAL TABS 2 po qd x 3 days PREDNISONE 20 MG ORAL TABS 936057 PREDNISONE Inactive Vital Signs Date Name Value [...] Value Unit Range Description Lab Report: Chlamydia/GC APTIMA/16835 - Lab chlamydia DNA probe NOT DETECTED NOT DETECTED Lab Report: Chlamydia/GC APTIMA/41568 - Microbiology Neisseria gonorrhoeae DNA probe NOT DETECTED NOT DETECTED Encounters Code Encounter Date Provider Facility CPT-16294 Level 4 Est. Patient 16:40:46 CDT Twin Franks MD [facility] CPT-68474 Level 3 Est. Patient 14:26:47 CDT Lev Huang MD [facility] CPT-72737 Level 3 Est. Patient 15:32:55 CDT Karen Cummins MD PhD [facility] CPT-21299 Level 3 Est. Patient 16:58:58 CDT Twin Franks MD [facility] CPT-59638 Level 3 Est. Patient 15:10:24 CDT Twin Franks MD [facility] CPT-36090 Level 3 Est. 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 Patient 16:59:32 LABORATORY TECH Twin Franks MD [facility] Procedures Code Procedure Name Date Entry Date Standard Description CPT-05325 Spec Collection and Handling Fee 16:40:47 CDT CPT-J1055 Depo Provera 150 mg (Medroxyprogesterone) 09:01:32 CDT CPT-27591 Abx/Therapy Injection 09:01:32 CDT CPT-11849 Abx/Therapy Injection 11:43:35 CDT CPT-J1055 Depo Provera 150 mg (Medroxyprogesterone) 15:22:54 CDT CPT-65910 Spec Collection and Handling Fee 15:10:24 CDT
--- OUTSIDE RECORDS SUMMARY | 2017-09-07 12:09 | XMS REPORT ---
Author Author [facility] Medical Staff Organization [facility] Address [address] [place], [place] [address] Phone [phone] Care Team Providers Care Community Support Professional Name Role Phone SHWETA GARCIA MD PP [phone] Summary purpose CCDA Sent to [facility] Chief Complaint and Reason for Visit No authorized Reason for Visit (Admitting Diagnosis) is available for this visit. Problem list No authorized problems tracked for continuity of care are available for this visit. Encounters No authorized problems tracked for encounter diagnoses are available for this visit. Medications No medications recorded for this patient visit Allergies, adverse reactions, alerts No allergy information is available for this patient. Immunizations No immunizations recorded for this patient visit Relevant diagnostic tests and/or laboratory data No authorized results are available for this patient visit History of procedures Procedure Code Code Type Description Date Performed Performing Physician 22727 CPT-4 URINE CULTURE/COLONY COUNT 05-27-2017 LONG PRETTY Functional status No functional or cognitive status observations are available for this visit. Vital signs No authorized vital signs are available for this visit. Social history No Social History or smoking status observations were recorded for this visit. ( Unknown if ever smoked.) Treatment Plan No treatment plan text is available for this visit. Hospital discharge instructions No discharge instruction text is available for this visit.
--- OUTSIDE RECORDS SUMMARY | 2017-09-07 12:10 | XMS REPORT | Clinical Summary ---
Author Author Admin, MARY Organization [facility] Address Unknown Phone Unavailable Allergies, Adverse [...] Provider Patient Instruction FLAGYL 500 MG ORAL TABS 1 tab po bid for 7 days METRONIDAZOLE 78827947036 Active Twin Franks MD Active PREDNISONE 20 MG ORAL TABS 2 po qd x 3 days PREDNISONE 77066894222 No Longer Active Twin Franks MD Active AMOXICILLIN 500 MG ORAL CAPS 1 po TID x 10 days AMOXICILLIN 35215062695 Active Twin Franks MD Active CIPRO 500 MG TAB 1 tablet by mouth twice daily CIPROFLOXACIN HCL 64090643831 No Longer Active Lev Huang MD Active FIORICET 325-50-40 MG TAB 1 tablet by mouth four times daily as needed 05/27 [id number] 85713134440 No Longer Active Lev Huang MD Active FLAGYL 500 MG TABS 1 pill by mouth twice daily METRONIDAZOLE 91849351273 No Longer Active Karen Cummins MD PhD Active PREDNISONE 20 MG TAB 2 tabs daily for 4 days, 1 tab daily for 4 days, 1/2 tab daily for 4 days PREDNISONE 27970121710 No Longer Active Karen Cummins MD PhD Active AMOXICILLIN 500 MG CAPS 2 po BID x 10 days AMOXICILLIN 75372991707 No Longer Active Twin Franks MD Active IBUPROFEN 800 MG TABS 1 tab every 8 hours as needed IBUPROFEN 90498709949 No Longer Active Twin Franks MD Active FLONASE 50 MCG/ACT SUSP 2 puffs in each nostril daily FLUTICASONE PROPIONATE 43338680511 No Longer Active Twin Franks MD Active AMOXICILLIN 500 MG CAPS 2 po BID x 10 days AMOXICILLIN 45363210023 No Longer Active Twin Franks MD Active AMOXICILLIN 500 MG CAPS 2 po BID x 10 days AMOXICILLIN 02795049674 No Longer Active Twin Franks MD Active FLONASE 50 MCG/ACT SUSP 2 puffs in each nostril daily FLONASE 50 MCG/ACT SUSP 0704941 FLUTICASONE PROPIONATE Inactive IBUPROFEN 800 MG TABS 1 tab every 8 hours as needed IBUPROFEN 800 MG TABS 068602 IBUPROFEN Inactive PREDNISONE 20 MG TAB 2 tabs daily for 4 days, 1 tab daily for 4 days, 1/2 tab daily for 4 days PREDNISONE 20 MG TAB 978211 PREDNISONE Inactive FIORICET 325-50-40 MG TAB 1 tablet by mouth four times daily as needed 05/27 FIORICET 325-50-40 MG TAB [id number] Inactive AMOXICILLIN 500 MG CAPS 2 po BID x 10 days AMOXICILLIN 500 MG CAPS 805143 AMOXICILLIN Inactive AMOXICILLIN 500 MG CAPS 2 po BID x 10 days AMOXICILLIN 500 MG CAPS 673043 AMOXICILLIN Inactive AMOXICILLIN 500 MG CAPS 2 po BID x 10 days AMOXICILLIN 500 MG CAPS 446480 AMOXICILLIN Inactive FLAGYL 500 MG TABS 1 pill by mouth twice daily FLAGYL 500 MG TABS 425935 METRONIDAZOLE Inactive CIPRO 500 MG TAB 1 tablet by mouth twice daily CIPRO 500 MG TAB 101252 CIPROFLOXACIN HCL Inactive PREDNISONE 20 MG ORAL TABS 2 po qd x 3 days PREDNISONE 20 MG ORAL TABS 405210 PREDNISONE Inactive Vital Signs Date Name Value [...] Value Unit Range Description Lab Report: Chlamydia/GC APTIMA/01045 - Lab chlamydia DNA probe NOT DETECTED NOT DETECTED Lab Report: Chlamydia/GC APTIMA/81938 - Microbiology Neisseria gonorrhoeae DNA probe NOT DETECTED NOT DETECTED Encounters Code Encounter Date Provider Facility CPT-01856 Level 4 Est. Patient 16:40:46 CDT Twin Franks MD [facility] CPT-59846 Level 3 Est. Patient 14:26:47 CDT Lev Huang MD [facility] CPT-33040 Level 3 Est. Patient 15:32:55 CDT Karen Cummins MD PhD [facility] CPT-70976 Level 3 Est. Patient 16:58:58 CDT Twin Franks MD [facility] CPT-41258 Level 3 Est. Patient 15:10:24 CDT Twin Franks MD [facility] CPT-95555 Level 3 Est. 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 Patient 16:59:32 MATERIALS INSPECTOR Twin Franks MD [facility] Procedures Code Procedure Name Date Entry Date Standard Description CPT-03675 Spec Collection and Handling Fee 16:40:47 CDT CPT-J1055 Depo Provera 150 mg (Medroxyprogesterone) 09:01:32 CDT CPT-17182 Abx/Therapy Injection 09:01:32 CDT CPT-70967 Abx/Therapy Injection 11:43:35 CDT CPT-J1055 Depo Provera 150 mg (Medroxyprogesterone) 15:22:54 CDT CPT-11611 Spec Collection and Handling Fee 15:10:24 CDT
--- OUTSIDE RECORDS SUMMARY | 2017-09-07 12:10 | XMS REPORT | Clinical Summary ---
Author Author Admin, MARY Organization [facility] Address Unknown Phone Unavailable Allergies, Adverse Reactions, [...] Headache Drug abuse 305.90 Active Jillina Frazell STEEL MELTER Other, mixed, or unspecified drug abuse, unspecified use Anxiety 300.00 Active Jillina Frazell STEEL MELTER Anxiety state, unspecified DYSURIA 788.1 Resolved Twin [...] x1. do not mix with ETOH METRONIDAZOLE 74223442993 Active Sasha Grande APRN Active MACROBID 100 MG ORAL CAPSULE 1 cap by mouth twice daily NITROFURANTOIN MONOHYD MACRO 41958614991 Active Sasha Grande APRN Active BACTRIM DS 800-160 MG ORAL TABLET 1 po BID x 7 days SULFAMETHOXAZOLE-TRIMETHOPRIM 71853193959 No Longer Active Twin Franks MD Active CELEXA 20 MG ORAL TABLET Take one tab po daily CITALOPRAM HYDROBROMIDE 58132494323 Active Twin Franks MD Active PHENAZOPYRIDINE HCL 100 MG ORAL TABLET 1 tab po bid PHENAZOPYRIDINE HCL 80362146478 No Longer Active Twin Franks MD Active CIPRO 500 MG ORAL TABLET 1 tablet by mouth twice daily CIPROFLOXACIN HCL 04770531268 No Longer Active Twin Franks MD Active TRAMADOL HCL 50 MG ORAL TABLET 1-2 tablets every 6 hours as needed for pain TRAMADOL HCL 04171340785 No Longer Active Jillina Frazell STEEL MELTER Active CYCLOBENZAPRINE HCL 10 MG ORAL TABLET 1 tab po q pm, prn tamayo CYCLOBENZAPRINE HCL 71203782006 No Longer Active Jillina Frazell STEEL MELTER Active DIFLUCAN 100 MG ORAL TABLET 1 tablet by mouth x 1 FLUCONAZOLE 25101922418 No Longer Active Jillina Frazell STEEL MELTER Active BUSPIRONE HCL 7.5 MG ORAL TABLET 1 pill twice daily, for anxiety BUSPIRONE HCL 48110973122 No Longer Active Jillina Frazell STEEL MELTER Active FLAGYL 500 MG ORAL TABLET 1 tab po bid for 7 days METRONIDAZOLE 73168407856 No Longer Active Jillina Fraalessandral STEEL MELTER Active PREDNISONE 20 MG ORAL TABLET 2 po qd x 3 days PREDNISONE 62630197303 No Longer Active Twin Franks MD Active AMOXICILLIN 500 MG ORAL CAPSULE 1 po TID x 10 days AMOXICILLIN 11128633892 No Longer Active Twin Franks MD Active CIPRO 500 MG ORAL TABLET 1 tablet by mouth twice daily CIPROFLOXACIN HCL 22615899330 No Longer Active Lev Huang MD Active FIORICET 325-50-40 MG TAB 1 tablet by mouth four times daily as needed 05/27 [id number] 38059980968 No Longer Active Lev Huang MD Active FLAGYL 500 MG ORAL TABLET 1 pill by mouth twice daily METRONIDAZOLE 59103650898 No Longer Active Karen Cummins MD PhD Active PREDNISONE 20 MG ORAL TABLET 2 tabs daily for 4 days, 1 tab daily for 4 days, 1/2 tab daily for 4 days PREDNISONE 61347105494 No Longer Active Karen Cummins MD PhD Active AMOXICILLIN 500 MG ORAL CAPSULE 2 po BID x 10 days AMOXICILLIN 79011464987 No Longer Active Twin Franks MD Active IBUPROFEN 800 MG ORAL TABLET 1 tab every 8 hours as needed 03/15 IBUPROFEN 39798417949 No Longer Active Twin Franks MD Active FLONASE 50 MCG/ACT NASAL SUSPENSION 2 puffs in each nostril daily FLUTICASONE PROPIONATE 42266539667 No Longer Active Twin Franks MD Active AMOXICILLIN 500 MG ORAL CAPSULE 2 po BID x 10 days AMOXICILLIN 60920284798 No Longer Active Twin Franks MD Active AMOXICILLIN 500 MG ORAL CAPSULE 2 po BID x 10 days AMOXICILLIN 55016221742 No Longer Active Twin Franks MD Active FLONASE 50 MCG/ACT NASAL SUSPENSION 2 puffs in each nostril daily FLONASE 50 MCG/ACT NASAL SUSPENSION 8689363 FLUTICASONE PROPIONATE Inactive IBUPROFEN 800 MG ORAL TABLET 1 tab every 8 hours as needed 03/15 IBUPROFEN 800 MG ORAL TABLET 197504 IBUPROFEN Inactive PREDNISONE 20 MG ORAL TABLET 2 tabs daily for 4 days, 1 tab daily for 4 days, 1/2 tab daily for 4 days PREDNISONE 20 MG ORAL TABLET 595935 PREDNISONE Inactive FIORICET 325-50-40 MG TAB 1 tablet by mouth four times daily as needed 05/27 FIORICET 325-50-40 MG TAB [id number] Inactive FLAGYL 500 MG ORAL TABLET 1 tab po bid for 7 days FLAGYL 500 MG ORAL TABLET 725190 METRONIDAZOLE Inactive BUSPIRONE HCL 7.5 MG ORAL TABLET 1 pill twice daily, for anxiety BUSPIRONE HCL 7.5 MG ORAL TABLET 559797 BUSPIRONE HCL Inactive DIFLUCAN 100 MG ORAL TABLET 1 tablet by mouth x 1 DIFLUCAN 100 MG ORAL TABLET 176943 FLUCONAZOLE Inactive CYCLOBENZAPRINE HCL 10 MG ORAL TABLET 1 tab po q pm, prn tamayo 10/11 CYCLOBENZAPRINE HCL 10 MG ORAL TABLET 920832 CYCLOBENZAPRINE HCL Inactive TRAMADOL HCL 50 MG ORAL TABLET 1-2 tablets every 6 hours as needed for pain TRAMADOL HCL 50 MG ORAL TABLET 414286 TRAMADOL HCL Inactive CIPRO 500 MG ORAL TABLET 1 tablet by mouth twice daily CIPRO 500 MG ORAL TABLET 791792 CIPROFLOXACIN HCL Inactive PHENAZOPYRIDINE HCL 100 MG ORAL TABLET 1 tab po bid PHENAZOPYRIDINE HCL 100 MG ORAL TABLET 8079411 PHENAZOPYRIDINE HCL Inactive AMOXICILLIN 500 MG ORAL CAPSULE 2 po BID x 10 days AMOXICILLIN 500 MG ORAL CAPSULE 085467 AMOXICILLIN Inactive AMOXICILLIN 500 MG ORAL CAPSULE 2 po BID x 10 days AMOXICILLIN 500 MG ORAL CAPSULE 330374 AMOXICILLIN Inactive AMOXICILLIN 500 MG ORAL CAPSULE 2 po BID x 10 days AMOXICILLIN 500 MG ORAL CAPSULE 529148 AMOXICILLIN Inactive FLAGYL 500 MG ORAL TABLET 1 pill by mouth twice daily FLAGYL 500 MG ORAL TABLET 443537 METRONIDAZOLE Inactive CIPRO 500 MG ORAL TABLET 1 tablet by mouth twice daily CIPRO 500 MG ORAL TABLET 365444 CIPROFLOXACIN HCL Inactive AMOXICILLIN 500 MG ORAL CAPSULE 1 po TID x 10 days AMOXICILLIN 500 MG ORAL CAPSULE 751396 AMOXICILLIN Inactive PREDNISONE 20 MG ORAL TABLET 2 po qd x 3 days PREDNISONE 20 MG ORAL TABLET 312679 PREDNISONE Inactive BACTRIM DS 800-160 MG ORAL TABLET 1 po BID x 7 days BACTRIM DS 800-160 MG ORAL TABLET 110444 SULFAMETHOXAZOLE-TRIMETHOPRIM Inactive Vital Signs Date Name Value [...] urine, semiquantitative Negative Negative Lab Report: Chlamydia/GC APTIMA/31539 - Lab chlamydia DNA probe NOT DETECTED NOT DETECTED chlamydia DNA probe NOT DETECTED NOT DETECTED chlamydia DNA probe NOT DETECTED NOT DETECTED Lab Report: Chlamydia/GC APTIMA/18802 - Microbiology Neisseria gonorrhoeae DNA probe NOT DETECTED NOT DETECTED Neisseria gonorrhoeae DNA probe NOT DETECTED NOT DETECTED Neisseria gonorrhoeae DNA probe NOT DETECTED NOT DETECTED Lab Report: Comp. Metabolic Panel, Free Thyroxine (L), Thyroid Stimulati ... - Chemistry sodium, serum 140 mmol/L 829-673 2243/08/16 carbon dioxide, venous blood 32.2 mmol/L 21.0-32.0 [...] 5.0-8.5 Encounters Code Encounter Date Provider Facility CPT-21440 Level 3 Est. 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 CPT-09560 Level 3 Est. Patient 16:51:52 CDT Twin Franks MD [facility] CPT-42548 Level 3 Est. Patient 10:46:44 CDT Sasha Grande [facility] CPT-59437 Level 3 Est. Patient 11:22:49 CDT Sasha Grande [facility] CPT-63349 Level 4 Est. Patient 16:40:46 CDT Twin Franks MD [facility] CPT-14576 Level 3 Est. Patient 14:26:47 CDT Lev Huang MD [facility] CPT-27627 Level 3 Est. Patient 15:32:55 CDT Karen Cummins MD PhD [facility] CPT-83521 Level 3 Est. Patient 16:58:58 CDT Twin Franks MD [facility] CPT-15659 Level 3 Est. Patient 15:10:24 CDT Twin Franks MD [facility] CPT-62320 Level 3 Est. 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 Patient 16:59:32 JOINT TERMINAL ATTACK CONTROLLER Twin Franks MD [facility] Procedures Code Procedure Name Date Entry Date Standard Description CPT-03556 Spec Collection and Handling Fee 11:23:53 JOINT TERMINAL ATTACK CONTROLLER CPT-31755 IM or SQ Injection 12:06:22 CDT CPT-J1885 Toradol 30 mg (Ketorolac) 11:30:17 CDT CPT-36305 Spec Collection and Handling Fee 16:40:47 CDT CPT-J1055 Depo Provera 150 mg (Medroxyprogesterone) 09:01:32 CDT CPT-56531 Abx/Therapy Injection 09:01:32 CDT CPT-72431 Abx/Therapy Injection 11:43:35 CDT CPT-J1055 Depo Provera 150 mg (Medroxyprogesterone) 15:22:54 CDT CPT-12142 Spec Collection and Handling Fee 15:10:24 CDT
--- OUTSIDE RECORDS SUMMARY | 2017-09-07 12:11 | XMS REPORT | Clinical Summary ---
Author Author Admin, MARY Organization [facility] Address Unknown Phone Unavailable Allergies, Adverse Reactions, Alerts Allergy Name Reaction Description Start Date Severity Status Provider No Known Allergies Judy Barba RMA Conditions or Problems Problem Name Problem Code [...] not specified as infective Headache 784.0 Active Sasha Grande APRN Headache Drug abuse 305.90 Active Jillina Harjinder VENEGASN Other, mixed, or unspecified drug abuse, unspecified use Anxiety 300.00 Active Sasha Grande APRN Anxiety state, unspecified SINUSITIS, ACUTE ICD-461.9 Inactive Twin Franks MD SINUSITIS, ACUTE ICD-461.9 Inactive Karen Cummins MD PhD HEADACHE, TENSION ICD-307.81 Inactive Karen Cummins MD PhD Vaginitis ICD-616.10 Inactive Twin Franks MD UTI ICD-599.0 Inactive Twin Franks MD Medication List Medication Instructions Start Date Stop Date Generic Name NDC Status Provider Patient Instruction BUSPIRONE HCL 7.5 MG ORAL TABS 1 pill twice daily, for anxiety BUSPIRONE HCL 60603402036 Active Jillina Harjinder VENEGASN Active DIFLUCAN 100 MG TAB 1 tablet by mouth x 1 FLUCONAZOLE 42794136408 Active Jillina Fraalessandral TRANSMISSION SUPERINTENDENT Active CYCLOBENZAPRINE HCL 10 MG TABS 1 tab po q pm, prn tamayo CYCLOBENZAPRINE HCL 68800324954 Active Jillina Frazell TRANSMISSION SUPERINTENDENT Active TRAMADOL HCL 50 MG TABS 1-2 tablets every 6 hours as needed for pain TRAMADOL HCL 11619743743 Active Jillina Fraalessandral TRANSMISSION SUPERINTENDENT Active FLAGYL 500 MG ORAL TABS 1 tab po bid for 7 days METRONIDAZOLE 28460038414 No Longer Active Geraldllina Harjinder GUERRERO Active PREDNISONE 20 MG ORAL TABS 2 po qd x 3 days PREDNISONE 35763415681 No Longer Active Twin Franks MD Active AMOXICILLIN 500 MG ORAL CAPS 1 po TID x 10 days AMOXICILLIN 75248857185 No Longer Active Twin Franks MD Active CIPRO 500 MG TAB 1 tablet by mouth twice daily CIPROFLOXACIN HCL 41535439033 No Longer Active Lev Huang MD Active FIORICET 325-50-40 MG TAB 1 tablet by mouth four times daily as needed 05/27 [id number] 13091044466 No Longer Active Lev Huang MD Active FLAGYL 500 MG TABS 1 pill by mouth twice daily METRONIDAZOLE 32662405158 No Longer Active Karen Cummins MD PhD Active PREDNISONE 20 MG TAB 2 tabs daily for 4 days, 1 tab daily for 4 days, 1/2 tab daily for 4 days PREDNISONE 03068195785 No Longer Active Karen Cummins MD PhD Active AMOXICILLIN 500 MG CAPS 2 po BID x 10 days AMOXICILLIN 94195927606 No Longer Active Twin Franks MD Active IBUPROFEN 800 MG TABS 1 tab every 8 hours as needed IBUPROFEN 64077104960 No Longer Active Twin Franks MD Active FLONASE 50 MCG/ACT SUSP 2 puffs in each nostril daily FLUTICASONE PROPIONATE 50925228659 No Longer Active Twin Franks MD Active AMOXICILLIN 500 MG CAPS 2 po BID x 10 days AMOXICILLIN 88765971499 No Longer Active Twin Franks MD Active AMOXICILLIN 500 MG CAPS 2 po BID x 10 days AMOXICILLIN 71905659842 No Longer Active Twin Franks MD Active FLONASE 50 MCG/ACT SUSP 2 puffs in each nostril daily FLONASE 50 MCG/ACT SUSP 7095641 FLUTICASONE PROPIONATE Inactive IBUPROFEN 800 MG TABS 1 tab every 8 hours as needed IBUPROFEN 800 MG TABS 016611 IBUPROFEN Inactive PREDNISONE 20 MG TAB 2 tabs daily for 4 days, 1 tab daily for 4 days, 1/2 tab daily for 4 days PREDNISONE 20 MG TAB 957617 PREDNISONE Inactive FIORICET 325-50-40 MG TAB 1 tablet by mouth four times daily as needed 05/27 FIORICET 325-50-40 MG TAB [id number] Inactive FLAGYL 500 MG ORAL TABS 1 tab po bid for 7 days FLAGYL 500 MG ORAL TABS 096659 METRONIDAZOLE Inactive AMOXICILLIN 500 MG CAPS 2 po BID x 10 days AMOXICILLIN 500 MG CAPS 275321 AMOXICILLIN Inactive AMOXICILLIN 500 MG CAPS 2 po BID x 10 days AMOXICILLIN 500 MG CAPS 032437 AMOXICILLIN Inactive AMOXICILLIN 500 MG CAPS 2 po BID x 10 days AMOXICILLIN 500 MG CAPS 556781 AMOXICILLIN Inactive FLAGYL 500 MG TABS 1 pill by mouth twice daily FLAGYL 500 MG TABS 853080 METRONIDAZOLE Inactive CIPRO 500 MG TAB 1 tablet by mouth twice daily CIPRO 500 MG TAB 770995 CIPROFLOXACIN HCL Inactive AMOXICILLIN 500 MG ORAL CAPS 1 po TID x 10 days AMOXICILLIN 500 MG ORAL CAPS 710092 AMOXICILLIN Inactive PREDNISONE 20 MG ORAL TABS 2 po qd x 3 days PREDNISONE 20 MG ORAL TABS 745376 PREDNISONE Inactive Vital Signs Date Name Value Unit Range Description blood pressure, diastolic 65 mm[Hg] BP lee [...] urine, semiquantitative Negative Negative Lab Report: Chlamydia/GC APTIMA/38059 - Lab chlamydia DNA probe NOT DETECTED NOT DETECTED Lab Report: Chlamydia/GC APTIMA/66290 - Microbiology Neisseria gonorrhoeae DNA probe NOT DETECTED NOT DETECTED Lab Report: Comp. Metabolic Panel, Free Thyroxine (L), Thyroid Stimulati ... - Chemistry sodium, serum 140 mmol/L 781-519 3006/08/16 carbon dioxide, venous blood 32.2 mmol/L 21.0-32.0 [...] 0.36-3.74 Encounters Code Encounter Date Provider Facility CPT-97842 Level 3 Est. Patient 11:22:49 CDT Sasha Grande [facility] CPT-99122 Level 4 Est. Patient 16:40:46 CDT Twin Franks MD [facility] CPT-97110 Level 3 Est. Patient 14:26:47 CDT Lev Huang MD [facility] CPT-72264 Level 3 Est. Patient 15:32:55 CDT Karen Cummins MD PhD [facility] CPT-96149 Level 3 Est. Patient 16:58:58 CDT Twin Franks MD [facility] CPT-00761 Level 3 Est. Patient 15:10:24 CDT Twin Franks MD [facility] CPT-64911 Level 3 Est. Patient 11:09:46 LAST GREASER Twin Franks MD [facility] CPT-16972 Level 3 Est. Patient 16:59:32 LAST GREASER Twin Franks MD [facility] Procedures Code Procedure Name Date Entry Date Standard Description CPT-24226 IM or SQ Injection 12:06:22 CDT CPT-J1885 Toradol 30 mg (Ketorolac) 11:30:17 CDT CPT-74569 Spec Collection and Handling Fee 16:40:47 CDT CPT-J1055 Depo Provera 150 mg (Medroxyprogesterone) 09:01:32 CDT CPT-29511 Abx/Therapy Injection 09:01:32 CDT CPT-92184 Abx/Therapy Injection 11:43:35 CDT CPT-J1055 Depo Provera 150 mg (Medroxyprogesterone) 15:22:54 CDT CPT-27848 Spec Collection and Handling Fee 15:10:24 CDT
--- OUTSIDE RECORDS SUMMARY | 2017-09-07 12:11 | XMS REPORT | Clinical Summary ---
Author Author Admin, MARY [facility] Address Unknown Phone Unavailable Allergies, Adverse [...] tablet by mouth twice daily CIPROFLOXACIN HCL 71305114019 Active Lev Huang MD Active FIORICET 325-50-40 MG TAB 1 tablet by mouth four times daily as needed 05/27 [id number] 63967454306 No Longer Active Lev Huang MD Active FLAGYL 500 MG TABS 1 pill by mouth twice daily METRONIDAZOLE 70434635854 No Longer Active Karen Cummins MD PhD Active PREDNISONE 20 MG TAB 2 tabs daily for 4 days, 1 tab daily for 4 days, 1/2 tab daily for 4 days PREDNISONE 67033710252 No Longer Active Karen Cummins MD PhD Active AMOXICILLIN 500 MG CAPS 2 po BID x 10 days AMOXICILLIN 59035125617 No Longer Active Twin Franks MD Active IBUPROFEN 800 MG TABS 1 tab every 8 hours as needed IBUPROFEN 21788064590 No Longer Active Twin Franks MD Active FLONASE 50 MCG/ACT SUSP 2 puffs in each nostril daily FLUTICASONE PROPIONATE 02684199751 No Longer Active Twin Franks MD Active AMOXICILLIN 500 MG CAPS 2 po BID x 10 days AMOXICILLIN 00112360805 No Longer Active Twin Franks MD Active AMOXICILLIN 500 MG CAPS 2 po BID x 10 days AMOXICILLIN 53943311793 No Longer Active Twin Franks MD Active FLONASE 50 MCG/ACT SUSP 2 puffs in each nostril daily FLONASE 50 MCG/ACT SUSP FLUTICASONE PROPIONATE Inactive IBUPROFEN 800 MG TABS 1 tab every 8 hours as needed IBUPROFEN 800 MG TABS 051020 IBUPROFEN Inactive PREDNISONE 20 MG TAB 2 tabs daily for 4 days, 1 tab daily for 4 days, 1/2 tab daily for 4 days PREDNISONE 20 MG TAB 624692 PREDNISONE Inactive FIORICET 325-50-40 MG TAB 1 tablet by mouth four times daily as needed 05/27 FIORICET 325-50-40 MG TAB [id number] Inactive AMOXICILLIN 500 MG CAPS 2 po BID x 10 days AMOXICILLIN 500 MG CAPS 877967 AMOXICILLIN Inactive AMOXICILLIN 500 MG CAPS 2 po BID x 10 days AMOXICILLIN 500 MG CAPS 669254 AMOXICILLIN Inactive AMOXICILLIN 500 MG CAPS 2 po BID x 10 days AMOXICILLIN 500 MG CAPS 645306 AMOXICILLIN Inactive FLAGYL 500 MG TABS 1 pill by mouth twice daily FLAGYL 500 MG TABS 184598 METRONIDAZOLE Inactive Vital Signs Date Name Value Unit [...] Measured Encounters Code Encounter Date Provider Facility CPT-99074 Level 3 Est. Patient 14:26:47 CDT Lev Huang MD [facility] CPT-21071 Level 3 Est. Patient 15:32:55 CDT Karen Cummins MD PhD [facility] CPT-20379 Level 3 Est. Patient 16:58:58 CDT Twin Franks MD [facility] CPT-20695 Level 3 Est. Patient 15:10:24 CDT Twin Franks MD [facility] CPT-40102 Level 3 Est. 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 Patient 16:59:32 POINTING MACHINE OPERATOR Twin Franks MD [facility] Procedures Code Procedure Name Date Entry Date Standard Description CPT-J1055 Depo Provera 150 mg (Medroxyprogesterone) 09:01:32 CDT CPT-12761 Abx/Therapy Injection 09:01:32 CDT CPT-34729 Abx/Therapy Injection 11:43:35 CDT CPT-J1055 Depo Provera 150 mg (Medroxyprogesterone) 15:22:54 CDT CPT-78728 Spec Collection and Handling Fee 15:10:24 CDT
--- OUTSIDE RECORDS SUMMARY | 2017-09-07 12:11 | XMS REPORT | Clinical Summary ---
Author Author Admin, MARY Organization [facility] Address Unknown Phone Unavailable Allergies, Adverse [...] APRN Headache Drug abuse 305.90 Active Jillina Frazell ASPHALT PAVING MACHINE OPERATOR Other, mixed, or unspecified drug abuse, unspecified use Anxiety 300.00 Active Jillina Shamirl ASPHALT PAVING MACHINE OPERATOR Anxiety state, unspecified DYSURIA 788.1 Active Jimarcial Grande APRN Dysuria SINUSITIS, ACUTE ICD-461.9 Inactive Twin Franks MD SINUSITIS, ACUTE ICD-461.9 Inactive Karen Cummins MD PhD HEADACHE, TENSION ICD-307.81 Inactive Karen Cummins MD PhD Vaginitis ICD-616.10 Inactive Twin Franks MD UTI ICD-599.0 Inactive Twin Franks MD Medication List Medication Instructions Start Date Stop Date Generic Name NDC Status Provider Patient Instruction PHENAZOPYRIDINE HCL 100 MG ORAL TABS 1 tab po bid PHENAZOPYRIDINE HCL 19840455173 Active Aylaina Harjinder VENEGASN Active CIPRO 500 MG TAB 1 tablet by mouth twice daily CIPROFLOXACIN HCL 55812934141 Active Geraldllina Shamirl ASPHALT PAVING MACHINE OPERATOR Active TRAMADOL HCL 50 MG TABS 1-2 tablets every 6 hours as needed for pain TRAMADOL HCL 22048386959 No Longer Active Geraldllina Shamirl ASPHALT PAVING MACHINE OPERATOR Active CYCLOBENZAPRINE HCL 10 MG TABS 1 tab po q pm, prn tamayo CYCLOBENZAPRINE HCL 48596759830 No Longer Active Geraldllina Shamirl ASPHALT PAVING MACHINE OPERATOR Active DIFLUCAN 100 MG TAB 1 tablet by mouth x 1 FLUCONAZOLE 47597052061 No Longer Active Jillina Fraalessandral ASPHALT PAVING MACHINE OPERATOR Active BUSPIRONE HCL 7.5 MG ORAL TABS 1 pill twice daily, for anxiety BUSPIRONE HCL 01500175950 No Longer Active Jillina Fraalessandral ASPHALT PAVING MACHINE OPERATOR Active FLAGYL 500 MG ORAL TABS 1 tab po bid for 7 days METRONIDAZOLE 47845928760 No Longer Active Jillina Frazell ASPHALT PAVING MACHINE OPERATOR Active PREDNISONE 20 MG ORAL TABS 2 po qd x 3 days PREDNISONE 77069824123 No Longer Active Twin Franks MD Active AMOXICILLIN 500 MG ORAL CAPS 1 po TID x 10 days AMOXICILLIN 13658538376 No Longer Active Twin Franks MD Active CIPRO 500 MG TAB 1 tablet by mouth twice daily CIPROFLOXACIN HCL 25429527596 No Longer Active Lev Huang MD Active FIORICET 325-50-40 MG TAB 1 tablet by mouth four times daily as needed 05/27 [id number] 02091473637 No Longer Active Lev Huang MD Active FLAGYL 500 MG TABS 1 pill by mouth twice daily METRONIDAZOLE 15198371077 No Longer Active Karen Cummins MD PhD Active PREDNISONE 20 MG TAB 2 tabs daily for 4 days, 1 tab daily for 4 days, 1/2 tab daily for 4 days PREDNISONE 38371943852 No Longer Active Karen Cummins MD PhD Active AMOXICILLIN 500 MG CAPS 2 po BID x 10 days AMOXICILLIN 94455608162 No Longer Active Twin Franks MD Active IBUPROFEN 800 MG TABS 1 tab every 8 hours as needed IBUPROFEN 46182895253 No Longer Active Twin Franks MD Active FLONASE 50 MCG/ACT SUSP 2 puffs in each nostril daily FLUTICASONE PROPIONATE 90066275710 No Longer Active Twin Franks MD Active AMOXICILLIN 500 MG CAPS 2 po BID x 10 days AMOXICILLIN 00702302329 No Longer Active Twin Franks MD Active AMOXICILLIN 500 MG CAPS 2 po BID x 10 days AMOXICILLIN 16227530239 No Longer Active Twin Franks MD Active FLONASE 50 MCG/ACT SUSP 2 puffs in each nostril daily FLONASE 50 MCG/ACT SUSP 2458290 FLUTICASONE PROPIONATE Inactive IBUPROFEN 800 MG TABS 1 tab every 8 hours as needed IBUPROFEN 800 MG TABS 399113 IBUPROFEN Inactive PREDNISONE 20 MG TAB 2 tabs daily for 4 days, 1 tab daily for 4 days, 1/2 tab daily for 4 days PREDNISONE 20 MG TAB 969100 PREDNISONE Inactive FIORICET 325-50-40 MG TAB 1 tablet by mouth four times daily as needed 05/27 FIORICET 325-50-40 MG TAB [id number] Inactive FLAGYL 500 MG ORAL TABS 1 tab po bid for 7 days FLAGYL 500 MG ORAL TABS 520681 METRONIDAZOLE Inactive BUSPIRONE HCL 7.5 MG ORAL TABS 1 pill twice daily, for anxiety BUSPIRONE HCL 7.5 MG ORAL TABS 142926 BUSPIRONE HCL Inactive DIFLUCAN 100 MG TAB 1 tablet by mouth x 1 DIFLUCAN 100 MG TAB 491899 FLUCONAZOLE Inactive CYCLOBENZAPRINE HCL 10 MG TABS 1 tab po q pm, prn tamayo CYCLOBENZAPRINE HCL 10 MG TABS 680873 CYCLOBENZAPRINE HCL Inactive TRAMADOL HCL 50 MG TABS 1-2 tablets every 6 hours as needed for pain TRAMADOL HCL 50 MG TABS 441301 TRAMADOL HCL Inactive AMOXICILLIN 500 MG CAPS 2 po BID x 10 days AMOXICILLIN 500 MG CAPS 279568 AMOXICILLIN Inactive AMOXICILLIN 500 MG CAPS 2 po BID x 10 days AMOXICILLIN 500 MG CAPS 443169 AMOXICILLIN Inactive AMOXICILLIN 500 MG CAPS 2 po BID x 10 days AMOXICILLIN 500 MG CAPS 514242 AMOXICILLIN Inactive FLAGYL 500 MG TABS 1 pill by mouth twice daily FLAGYL 500 MG TABS 023752 METRONIDAZOLE Inactive CIPRO 500 MG TAB 1 tablet by mouth twice daily CIPRO 500 MG TAB 094647 CIPROFLOXACIN HCL Inactive AMOXICILLIN 500 MG ORAL CAPS 1 po TID x 10 days AMOXICILLIN 500 MG ORAL CAPS 031890 AMOXICILLIN Inactive PREDNISONE 20 MG ORAL TABS 2 po qd x 3 days PREDNISONE 20 MG ORAL TABS 030842 PREDNISONE Inactive Vital Signs Date Name Value Unit Range Description blood pressure, diastolic 78 mm[Hg] BP lee [...] urine, semiquantitative Negative Negative Lab Report: Chlamydia/GC APTIMA/96111 - Lab chlamydia DNA probe NOT DETECTED NOT DETECTED chlamydia DNA probe NOT DETECTED NOT DETECTED Lab Report: Chlamydia/GC APTIMA/16264 - Microbiology Neisseria gonorrhoeae DNA probe NOT DETECTED NOT DETECTED Neisseria gonorrhoeae DNA probe NOT DETECTED NOT DETECTED Lab Report: Comp. Metabolic Panel, Free Thyroxine (L), Thyroid Stimulati ... - Chemistry sodium, serum 140 mmol/L 285-698 2634/08/16 carbon dioxide, venous blood 32.2 mmol/L 21.0-32.0 [...] 0.36-3.74 Encounters Code Encounter Date Provider Facility CPT-66417 Level 3 Est. Patient 10:46:44 CDT Sasha Grande [facility] CPT-75645 Level 3 Est. Patient 11:22:49 CDT Sasha Grande [facility] CPT-33111 Level 4 Est. Patient 16:40:46 CDT Twin Franks MD [facility] CPT-13753 Level 3 Est. Patient 14:26:47 CDT Lev Huang MD [facility] CPT-37453 Level 3 Est. Patient 15:32:55 CDT Karen Cummins MD PhD [facility] CPT-15169 Level 3 Est. Patient 16:58:58 CDT Twin Franks MD [facility] CPT-98119 Level 3 Est. Patient 15:10:24 CDT Twin Franks MD [facility] CPT-94710 Level 3 Est. 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 Patient 16:59:32 HAND SOLE SEWER Twin Franks MD [facility] Procedures Code Procedure Name Date Entry Date Standard Description CPT-39719 IM or SQ Injection 12:06:22 CDT CPT-J1885 Toradol 30 mg (Ketorolac) 11:30:17 CDT CPT-30991 Spec Collection and Handling Fee 16:40:47 CDT CPT-J1055 Depo Provera 150 mg (Medroxyprogesterone) 09:01:32 CDT CPT-42518 Abx/Therapy Injection 09:01:32 CDT CPT-19600 Abx/Therapy Injection 11:43:35 CDT CPT-J1055 Depo Provera 150 mg (Medroxyprogesterone) 15:22:54 CDT CPT-59555 Spec Collection and Handling Fee 15:10:24 CDT
--- OUTSIDE RECORDS SUMMARY | 2017-09-07 12:11 | XMS REPORT | Clinical Summary ---
Author Author Admin, MARY Organization [facility] Address Unknown Phone Unavailable Allergies, Adverse Reactions, [...] pill twice daily, for anxiety BUSPIRONE HCL 38844095989 Active Jillina Harjinder VENEGASN Active DIFLUCAN 100 MG TAB 1 tablet by mouth x 1 FLUCONAZOLE 24833351600 Active Jillina Fraalessandral SEAT COVER MAKER Active CYCLOBENZAPRINE HCL 10 MG TABS 1 tab po q pm, prn tamayo CYCLOBENZAPRINE HCL 03416286697 Active Jillina Frazell SEAT COVER MAKER Active TRAMADOL HCL 50 MG TABS 1-2 tablets every 6 hours as needed for pain TRAMADOL HCL 05861590038 Active Jillina Fraalessandral SEAT COVER MAKER Active FLAGYL 500 MG ORAL TABS 1 tab po bid for 7 days METRONIDAZOLE 90945821516 No Longer Active Geraldllina Harjinder GUERRERO Active PREDNISONE 20 MG ORAL TABS 2 po qd x 3 days PREDNISONE 86981168232 No Longer Active Twin Franks MD Active AMOXICILLIN 500 MG ORAL CAPS 1 po TID x 10 days AMOXICILLIN 89997802810 No Longer Active Twin Franks MD Active CIPRO 500 MG TAB 1 tablet by mouth twice daily CIPROFLOXACIN HCL 90016912516 No Longer Active Lev Huang MD Active FIORICET 325-50-40 MG TAB 1 tablet by mouth four times daily as needed 05/27 [id number] 67781729273 No Longer Active Lev Huang MD Active FLAGYL 500 MG TABS 1 pill by mouth twice daily METRONIDAZOLE 74607948922 No Longer Active Karen Cummins MD PhD Active PREDNISONE 20 MG TAB 2 tabs daily for 4 days, 1 tab daily for 4 days, 1/2 tab daily for 4 days PREDNISONE 82163959092 No Longer Active Karen Cummins MD PhD Active AMOXICILLIN 500 MG CAPS 2 po BID x 10 days AMOXICILLIN 47247008884 No Longer Active Twin Franks MD Active IBUPROFEN 800 MG TABS 1 tab every 8 hours as needed IBUPROFEN 54123724870 No Longer Active Twin Franks MD Active FLONASE 50 MCG/ACT SUSP 2 puffs in each nostril daily FLUTICASONE PROPIONATE 38938091716 No Longer Active Twin Franks MD Active AMOXICILLIN 500 MG CAPS 2 po BID x 10 days AMOXICILLIN 67102077373 No Longer Active Twin Franks MD Active AMOXICILLIN 500 MG CAPS 2 po BID x 10 days AMOXICILLIN 39294594186 No Longer Active Twin Franks MD Active FLONASE 50 MCG/ACT SUSP 2 puffs in each nostril daily FLONASE 50 MCG/ACT SUSP 3342801 FLUTICASONE PROPIONATE Inactive IBUPROFEN 800 MG TABS 1 tab every 8 hours as needed IBUPROFEN 800 MG TABS 992992 IBUPROFEN Inactive PREDNISONE 20 MG TAB 2 tabs daily for 4 days, 1 tab daily for 4 days, 1/2 tab daily for 4 days PREDNISONE 20 MG TAB 370875 PREDNISONE Inactive FIORICET 325-50-40 MG TAB 1 tablet by mouth four times daily as needed 05/27 FIORICET 325-50-40 MG TAB [id number] Inactive FLAGYL 500 MG ORAL TABS 1 tab po bid for 7 days FLAGYL 500 MG ORAL TABS 476912 METRONIDAZOLE Inactive AMOXICILLIN 500 MG CAPS 2 po BID x 10 days AMOXICILLIN 500 MG CAPS 374219 AMOXICILLIN Inactive AMOXICILLIN 500 MG CAPS 2 po BID x 10 days AMOXICILLIN 500 MG CAPS 425748 AMOXICILLIN Inactive AMOXICILLIN 500 MG CAPS 2 po BID x 10 days AMOXICILLIN 500 MG CAPS 123721 AMOXICILLIN Inactive FLAGYL 500 MG TABS 1 pill by mouth twice daily FLAGYL 500 MG TABS 644615 METRONIDAZOLE Inactive CIPRO 500 MG TAB 1 tablet by mouth twice daily CIPRO 500 MG TAB 249629 CIPROFLOXACIN HCL Inactive AMOXICILLIN 500 MG ORAL CAPS 1 po TID x 10 days AMOXICILLIN 500 MG ORAL CAPS 268138 AMOXICILLIN Inactive PREDNISONE 20 MG ORAL TABS 2 po qd x 3 days PREDNISONE 20 MG ORAL TABS 938004 PREDNISONE Inactive Vital Signs Date Name Value [...] urine, semiquantitative Negative Negative Lab Report: Chlamydia/GC APTIMA/37113 - Lab chlamydia DNA probe NOT DETECTED NOT DETECTED Lab Report: Chlamydia/GC APTIMA/64831 - Microbiology Neisseria gonorrhoeae DNA probe NOT DETECTED NOT DETECTED Lab Report: Comp. Metabolic Panel, Free Thyroxine (L), Thyroid Stimulati ... - Chemistry sodium, serum 140 mmol/L 390-046 0056/08/16 carbon dioxide, venous blood 32.2 mmol/L 21.0-32.0 [...] 0.36-3.74 Encounters Code Encounter Date Provider Facility CPT-95290 Level 3 Est. Patient 11:22:49 CDT Sasha Grande [facility] CPT-77997 Level 4 Est. Patient 16:40:46 CDT Twin Franks MD [facility] CPT-32132 Level 3 Est. Patient 14:26:47 CDT Lev Huang MD [facility] CPT-76175 Level 3 Est. Patient 15:32:55 CDT Karen Cummins MD PhD [facility] CPT-02030 Level 3 Est. Patient 16:58:58 CDT Twin Franks MD [facility] CPT-25637 Level 3 Est. Patient 15:10:24 CDT Twin Franks MD [facility] CPT-08659 Level 3 Est. 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 Patient 16:59:32 BEET END SUPERVISOR Twin Franks MD [facility] Procedures Code Procedure Name Date Entry Date Standard Description CPT-75719 IM or SQ Injection 12:06:22 CDT CPT-J1885 Toradol 30 mg (Ketorolac) 11:30:17 CDT CPT-97909 Spec Collection and Handling Fee 16:40:47 CDT CPT-J1055 Depo Provera 150 mg (Medroxyprogesterone) 09:01:32 CDT CPT-42342 Abx/Therapy Injection 09:01:32 CDT CPT-43497 Abx/Therapy Injection 11:43:35 CDT CPT-J1055 Depo Provera 150 mg (Medroxyprogesterone) 15:22:54 CDT CPT-55229 Spec Collection and Handling Fee 15:10:24 CDT
--- OUTSIDE RECORDS SUMMARY | 2017-09-07 12:12 | XMS REPORT | Clinical Summary ---
Author Author Admin, MARY Organization [facility] Address Unknown Phone Unavailable Allergies, Adverse Reactions, [...] APRN Headache Drug abuse 305.90 Active Jillina Fraalessandral CHILDREN'S BOOK AUTHOR Other, mixed, or unspecified drug abuse, unspecified use Anxiety 300.00 Active Jillina Frazell CHILDREN'S BOOK AUTHOR Anxiety state, unspecified SINUSITIS, ACUTE ICD-461.9 Inactive Twin Franks MD SINUSITIS, ACUTE ICD-461.9 Inactive Karen Cummins MD PhD HEADACHE, TENSION ICD-307.81 Inactive Karen Cummins MD PhD Vaginitis ICD-616.10 Inactive Twin Franks MD UTI ICD-599.0 Inactive Twin Franks MD Medication List Medication Instructions Start Date Stop Date Generic Name NDC Status Provider Patient Instruction CYCLOBENZAPRINE HCL 10 MG TABS 1 tab po q pm, prn tamayo CYCLOBENZAPRINE HCL 22489872398 Active Jillrubia Fratika VENEGASN Active TRAMADOL HCL 50 MG TABS 1-2 tablets every 6 hours as needed for pain TRAMADOL HCL 18568038491 Active Jillina Fratika VENEGASN Active FLAGYL 500 MG ORAL TABS 1 tab po bid for 7 days METRONIDAZOLE 17930651582 No Longer Active Geraldllrubia Grande APRN Active PREDNISONE 20 MG ORAL TABS 2 po qd x 3 days PREDNISONE 21715397499 No Longer Active Twin Franks MD Active AMOXICILLIN 500 MG ORAL CAPS 1 po TID x 10 days AMOXICILLIN 88235740407 No Longer Active Twin Franks MD Active CIPRO 500 MG TAB 1 tablet by mouth twice daily CIPROFLOXACIN HCL 81230186691 No Longer Active Lev Huang MD Active FIORICET 325-50-40 MG TAB 1 tablet by mouth four times daily as needed 05/27 [id number] 73514644122 No Longer Active Lev Huang MD Active FLAGYL 500 MG TABS 1 pill by mouth twice daily METRONIDAZOLE 30038125225 No Longer Active Karen Cummins MD PhD Active PREDNISONE 20 MG TAB 2 tabs daily for 4 days, 1 tab daily for 4 days, 1/2 tab daily for 4 days PREDNISONE 69472866925 No Longer Active Karen Cummins MD PhD Active AMOXICILLIN 500 MG CAPS 2 po BID x 10 days AMOXICILLIN 87891663833 No Longer Active Twin Franks MD Active IBUPROFEN 800 MG TABS 1 tab every 8 hours as needed IBUPROFEN 22383611297 No Longer Active Twin Franks MD Active FLONASE 50 MCG/ACT SUSP 2 puffs in each nostril daily FLUTICASONE PROPIONATE 24389245357 No Longer Active Twin Franks MD Active AMOXICILLIN 500 MG CAPS 2 po BID x 10 days AMOXICILLIN 10089934854 No Longer Active Twin Franks MD Active AMOXICILLIN 500 MG CAPS 2 po BID x 10 days AMOXICILLIN 71143975157 No Longer Active Twin Franks MD Active FLONASE 50 MCG/ACT SUSP 2 puffs in each nostril daily FLONASE 50 MCG/ACT SUSP 3286382 FLUTICASONE PROPIONATE Inactive IBUPROFEN 800 MG TABS 1 tab every 8 hours as needed IBUPROFEN 800 MG TABS 076857 IBUPROFEN Inactive PREDNISONE 20 MG TAB 2 tabs daily for 4 days, 1 tab daily for 4 days, 1/2 tab daily for 4 days PREDNISONE 20 MG TAB 164412 PREDNISONE Inactive FIORICET 325-50-40 MG TAB 1 tablet by mouth four times daily as needed 05/27 FIORICET 325-50-40 MG TAB [id number] Inactive FLAGYL 500 MG ORAL TABS 1 tab po bid for 7 days FLAGYL 500 MG ORAL TABS 291045 METRONIDAZOLE Inactive AMOXICILLIN 500 MG CAPS 2 po BID x 10 days AMOXICILLIN 500 MG CAPS 476383 AMOXICILLIN Inactive AMOXICILLIN 500 MG CAPS 2 po BID x 10 days AMOXICILLIN 500 MG CAPS 655416 AMOXICILLIN Inactive AMOXICILLIN 500 MG CAPS 2 po BID x 10 days AMOXICILLIN 500 MG CAPS 451178 AMOXICILLIN Inactive FLAGYL 500 MG TABS 1 pill by mouth twice daily FLAGYL 500 MG TABS 052024 METRONIDAZOLE Inactive CIPRO 500 MG TAB 1 tablet by mouth twice daily CIPRO 500 MG TAB 893342 CIPROFLOXACIN HCL Inactive AMOXICILLIN 500 MG ORAL CAPS 1 po TID x 10 days AMOXICILLIN 500 MG ORAL CAPS 475368 AMOXICILLIN Inactive PREDNISONE 20 MG ORAL TABS 2 po qd x 3 days PREDNISONE 20 MG ORAL TABS 100226 PREDNISONE Inactive Vital Signs Date Name Value [...] Value Unit Range Description Lab Report: Chlamydia/GC APTIMA/27675 - Lab chlamydia DNA probe NOT DETECTED NOT DETECTED Lab Report: Chlamydia/GC APTIMA/48668 - Microbiology Neisseria gonorrhoeae DNA probe NOT DETECTED NOT DETECTED Encounters Code Encounter Date Provider Facility CPT-34080 Level 3 Est. Patient 11:22:49 CDT Sasha Grande [facility] CPT-48743 Level 4 Est. Patient 16:40:46 CDT Twin Franks MD [facility] CPT-29757 Level 3 Est. Patient 14:26:47 CDT Lev Huang MD [facility] CPT-74820 Level 3 Est. Patient 15:32:55 CDT Karen Cummins MD PhD [facility] CPT-26281 Level 3 Est. Patient 16:58:58 CDT Twin Franks MD [facility] CPT-65837 Level 3 Est. Patient 15:10:24 CDT Twin Franks MD [facility] CPT-35781 Level 3 Est. Patient 11:09:46 SAW REPAIRER Twin Franks MD [facility] CPT-62456 Level 3 Est. Patient 16:59:32 SAW REPAIRER Twin Franks MD [facility] Procedures Code Procedure Name Date Entry Date Standard Description CPT-79436 IM or SQ Injection 12:06:22 CDT CPT-J1885 Toradol 30 mg (Ketorolac) 11:30:17 CDT CPT-69056 Spec Collection and Handling Fee 16:40:47 CDT CPT-J1055 Depo Provera 150 mg (Medroxyprogesterone) 09:01:32 CDT CPT-69273 Abx/Therapy Injection 09:01:32 CDT CPT-37412 Abx/Therapy Injection 11:43:35 CDT CPT-J1055 Depo Provera 150 mg (Medroxyprogesterone) 15:22:54 CDT CPT-73316 Spec Collection and Handling Fee 15:10:24 CDT
--- OUTSIDE RECORDS SUMMARY | 2017-09-07 12:12 | XMS REPORT | Clinical Summary ---
Author Author Admin, MARY Costa [facility] Address Unknown Phone Unavailable Allergies, Adverse Reactions, Alerts Allergy Name Reaction Description Start Date Severity Status Provider No Known Allergies Alexandra Serenity [facility] Conditions or Problems Problem Name Problem Code [...] Cummins MD PhD Vaginitis and vulvovaginitis, unspecified SINUSITIS, ACUTE ICD-461.9 Inactive Twin Franks MD SINUSITIS, ACUTE ICD-461.9 Inactive Karen Cummins MD PhD HEADACHE, TENSION ICD-307.81 Inactive Karen Cummins MD PhD Medication List Medication Instructions Start Date Stop Date Generic Name NDC Status Provider Patient Instruction FLAGYL 500 MG TABS 1 pill by mouth twice daily METRONIDAZOLE 09124823685 Active Karen Cummins MD PhD Active PREDNISONE 20 MG TAB 2 tabs daily for 4 days, 1 tab daily for 4 days, 1/2 tab daily for 4 days PREDNISONE 84560221872 No Longer Active Karen Cummins MD PhD Active FIORICET 325-50-40 MG TAB 1 tablet by mouth four times daily as needed 05/27 [id number] 84176010784 Active Twin Franks MD Active AMOXICILLIN 500 MG CAPS 2 po BID x 10 days AMOXICILLIN 05773837177 No Longer Active Twin Franks MD Active IBUPROFEN 800 MG TABS 1 tab every 8 hours as needed IBUPROFEN 92980772182 No Longer Active Twin Franks MD Active FLONASE 50 MCG/ACT SUSP 2 puffs in each nostril daily FLUTICASONE PROPIONATE 81999302675 No Longer Active Twin Franks MD Active AMOXICILLIN 500 MG CAPS 2 po BID x 10 days AMOXICILLIN 76471034180 No Longer Active Twin Franks MD Active AMOXICILLIN 500 MG CAPS 2 po BID x 10 days AMOXICILLIN 95225798241 No Longer Active Twin Franks MD Active FLONASE 50 MCG/ACT SUSP 2 puffs in each nostril daily FLONASE 50 MCG/ACT SUSP 041710 FLUTICASONE PROPIONATE Inactive IBUPROFEN 800 MG TABS 1 tab every 8 hours as needed IBUPROFEN 800 MG TABS 011446 IBUPROFEN Inactive PREDNISONE 20 MG TAB 2 tabs daily for 4 days, 1 tab daily for 4 days, 1/2 tab daily for 4 days PREDNISONE 20 MG TAB 906486 PREDNISONE Inactive AMOXICILLIN 500 MG CAPS 2 po BID x 10 days AMOXICILLIN 500 MG CAPS 399165 AMOXICILLIN Inactive AMOXICILLIN 500 MG CAPS 2 po BID x 10 days AMOXICILLIN 500 MG CAPS 901516 AMOXICILLIN Inactive AMOXICILLIN 500 MG CAPS 2 po BID x 10 days AMOXICILLIN 500 MG CAPS 640524 AMOXICILLIN Inactive Vital Signs Date Name Value Unit Range Description blood pressure, diastolic - 8462-4 70 mm[Hg] BP lee blood pressure, systolic - 8480-6 111 mm[Hg] BP sys pulse rate E&M - 8867-4 72 /min Heart rate temperature E&M 98.2 [degF] Body temperature weight E&M - 3141-9 113.12 [lb_av] Weight Measured Diagnostic Results Date Name Value Unit Range Description Lab Report: Chlamydia/GC APTIMA/95050 - Lab chlamydia DNA probe NOT DETECTED NOT DETECTED Lab Report: Chlamydia/GC APTIMA/13542 - Microbiology Neisseria gonorrhoeae DNA probe NOT DETECTED NOT DETECTED Lab Report: UADIP W/MICRO, AUTO - Chemistry RBC, urine, dipstick Negative Negative protein, total urine random Negative mg/dL Negative Lab Report: UADIP W/MICRO, AUTO - Urinalysis glucose, urine, semiquantitative Negative Negative ketones, urine, by test strip Negative Negative bilirubin, urine Negative Negative urine color Yellow Colorless;Lightyellow;Straw;Yellow appearance, urine Clear Clear specific gravity, urine 1.020 1.000-1.030 pH, urine, semiquantitative 6.5 5.0-8.5 urobilinogen, urine, semiquantitative (dipstick) 0.2 Normal leukocyte esterase, urine, by dipstick 2+ Negative nitrite, urine, semiquantitative Negative Negative Encounters Code Encounter Date Provider Facility CPT-45684 Level 3 Est. Patient 15:32:55 CDT Karen Cummins MD PhD [facility] CPT-52157 Level 3 Est. Patient 16:58:58 CDT Twin Franks MD [facility] CPT-77877 Level 3 Est. Patient 15:10:24 CDT Twin Franks MD [facility] CPT-91579 Level 3 Est. Patient 11:09:46 BUSINESS SERVICES INTERN Twin Franks MD [facility] CPT-73399 Level 3 Est. Patient 16:59:32 BUSINESS SERVICES INTERN Twin Franks MD [facility] Procedures Code Procedure Name Date Entry Date Standard Description CPT-J1055 Depo Provera 150 mg (Medroxyprogesterone) 09:01:32 CDT CPT-71070 Abx/Therapy Injection 09:01:32 CDT CPT-27419 Abx/Therapy Injection 11:43:35 CDT CPT-J1055 Depo Provera 150 mg (Medroxyprogesterone) 15:22:54 CDT CPT-94116 Spec Collection and Handling Fee 15:10:24 CDT
--- OUTSIDE RECORDS SUMMARY | 2017-09-07 12:12 | XMS REPORT | Clinical Summary ---
Author Author Admin, MARY Organization [facility] Address Unknown Phone Unavailable Allergies, Adverse [...] Headache Drug abuse 305.90 Active Jillina Frazell PIPE COVERER Other, mixed, or unspecified drug abuse, unspecified use Anxiety 300.00 Active Jillina Shamirl PIPE COVERER Anxiety state, unspecified DYSURIA 788.1 Active Jimarcial [...] TABS 1 tab po bid PHENAZOPYRIDINE HCL 12247605445 Active Aylaina Harjinder VENEGASN Active CIPRO 500 MG TAB 1 tablet by mouth twice daily CIPROFLOXACIN HCL 68918427653 Active Geraldllina Shamirl PIPE COVERER Active TRAMADOL HCL 50 MG TABS 1-2 tablets every 6 hours as needed for pain TRAMADOL HCL 75583550764 No Longer Active Geraldllina Shamirl PIPE COVERER Active CYCLOBENZAPRINE HCL 10 MG TABS 1 tab po q pm, prn tamayo CYCLOBENZAPRINE HCL 30011902683 No Longer Active Geraldllina Shamirl PIPE COVERER Active DIFLUCAN 100 MG TAB 1 tablet by mouth x 1 FLUCONAZOLE 84674873055 No Longer Active Jillina Fraalessandral PIPE COVERER Active BUSPIRONE HCL 7.5 MG ORAL TABS 1 pill twice daily, for anxiety BUSPIRONE HCL 26016097714 No Longer Active Jillina Fraalessandral PIPE COVERER Active FLAGYL 500 MG ORAL TABS 1 tab po bid for 7 days METRONIDAZOLE 97105223824 No Longer Active Jillina Frazell PIPE COVERER Active PREDNISONE 20 MG ORAL TABS 2 po qd x 3 days PREDNISONE 80094033963 No Longer Active Twin Franks MD Active AMOXICILLIN 500 MG ORAL CAPS 1 po TID x 10 days AMOXICILLIN 39669792316 No Longer Active Twin Franks MD Active CIPRO 500 MG TAB 1 tablet by mouth twice daily CIPROFLOXACIN HCL 49348824968 No Longer Active Lev Huang MD Active FIORICET 325-50-40 MG TAB 1 tablet by mouth four times daily as needed 05/27 [id number] 73863559173 No Longer Active Lev Huang MD Active FLAGYL 500 MG TABS 1 pill by mouth twice daily METRONIDAZOLE 79103725181 No Longer Active Karen Cummins MD PhD Active PREDNISONE 20 MG TAB 2 tabs daily for 4 days, 1 tab daily for 4 days, 1/2 tab daily for 4 days PREDNISONE 88527927601 No Longer Active Karen Cummins MD PhD Active AMOXICILLIN 500 MG CAPS 2 po BID x 10 days AMOXICILLIN 11246196726 No Longer Active Tiwn Franks MD Active IBUPROFEN 800 MG TABS 1 tab every 8 hours as needed IBUPROFEN 12195143096 No Longer Active Twin Franks MD Active FLONASE 50 MCG/ACT SUSP 2 puffs in each nostril daily FLUTICASONE PROPIONATE 38201405947 No Longer Active Twin Franks MD Active AMOXICILLIN 500 MG CAPS 2 po BID x 10 days AMOXICILLIN 38579238599 No Longer Active Twin Franks MD Active AMOXICILLIN 500 MG CAPS 2 po BID x 10 days AMOXICILLIN 81223191131 No Longer Active Twin Franks MD Active FLONASE 50 MCG/ACT SUSP 2 puffs in each nostril daily FLONASE 50 MCG/ACT SUSP 1313808 FLUTICASONE PROPIONATE Inactive IBUPROFEN 800 MG TABS 1 tab every 8 hours as needed IBUPROFEN 800 MG TABS 319966 IBUPROFEN Inactive PREDNISONE 20 MG TAB 2 tabs daily for 4 days, 1 tab daily for 4 days, 1/2 tab daily for 4 days PREDNISONE 20 MG TAB 783285 PREDNISONE Inactive FIORICET 325-50-40 MG TAB 1 tablet by mouth four times daily as needed 05/27 FIORICET 325-50-40 MG TAB [id number] Inactive FLAGYL 500 MG ORAL TABS 1 tab po bid for 7 days FLAGYL 500 MG ORAL TABS 422700 METRONIDAZOLE Inactive BUSPIRONE HCL 7.5 MG ORAL TABS 1 pill twice daily, for anxiety BUSPIRONE HCL 7.5 MG ORAL TABS 301757 BUSPIRONE HCL Inactive DIFLUCAN 100 MG TAB 1 tablet by mouth x 1 DIFLUCAN 100 MG TAB 615264 FLUCONAZOLE Inactive CYCLOBENZAPRINE HCL 10 MG TABS 1 tab po q pm, prn tamayo CYCLOBENZAPRINE HCL 10 MG TABS 594592 CYCLOBENZAPRINE HCL Inactive TRAMADOL HCL 50 MG TABS 1-2 tablets every 6 hours as needed for pain TRAMADOL HCL 50 MG TABS 639985 TRAMADOL HCL Inactive AMOXICILLIN 500 MG CAPS 2 po BID x 10 days AMOXICILLIN 500 MG CAPS 248178 AMOXICILLIN Inactive AMOXICILLIN 500 MG CAPS 2 po BID x 10 days AMOXICILLIN 500 MG CAPS 654981 AMOXICILLIN Inactive AMOXICILLIN 500 MG CAPS 2 po BID x 10 days AMOXICILLIN 500 MG CAPS 630078 AMOXICILLIN Inactive FLAGYL 500 MG TABS 1 pill by mouth twice daily FLAGYL 500 MG TABS 856523 METRONIDAZOLE Inactive CIPRO 500 MG TAB 1 tablet by mouth twice daily CIPRO 500 MG TAB 882263 CIPROFLOXACIN HCL Inactive AMOXICILLIN 500 MG ORAL CAPS 1 po TID x 10 days AMOXICILLIN 500 MG ORAL CAPS 172652 AMOXICILLIN Inactive PREDNISONE 20 MG ORAL TABS 2 po qd x 3 days PREDNISONE 20 MG ORAL TABS 261052 PREDNISONE Inactive Vital Signs Date Name Value [...] urine, semiquantitative Negative Negative Lab Report: Chlamydia/GC APTIMA/30987 - Lab chlamydia DNA probe NOT DETECTED NOT DETECTED chlamydia DNA probe NOT DETECTED NOT DETECTED Lab Report: Chlamydia/GC APTIMA/08282 - Microbiology Neisseria gonorrhoeae DNA probe NOT DETECTED NOT DETECTED Neisseria gonorrhoeae DNA probe NOT DETECTED NOT DETECTED Lab Report: Comp. Metabolic Panel, Free Thyroxine (L), Thyroid Stimulati ... - Chemistry potassium, serum 4.5 mmol/L 3.5-5.2 carbon dioxide, venous blood 32.2 mmol/L 21.0-32.0 sodium, serum 140 mmol/L 759-671 0370/08/16 chloride, serum 106 mmol/L 98-107 blood glucose 85 mg/dL 65-110 urea nitrogen, blood 6 mg/dL 7-18 creatinine, serum 0.71 mg/dL 0.60-1.30 alanine aminotransferase (SGPT), serum 28 U/L 12-78 aspartate aminotransferase (SGOT), serum 19 U/L 15-37 calcium, serum 9.0 mg/dL 8.5-10.1 bilirubin, serum, total 0.50 mg/dL 0.00-1.00 thyroxine, serum, free 0.92 ng/dL 0.59-1.17 TSH 0.77 m[iU]/mL 0.36-3.74 Encounters Code Encounter Date Provider Facility CPT-02518 Level 3 Est. Patient 10:46:44 CDT [facility] CPT-94801 Level 3 Est. Patient 11:22:49 CDT [facility] CPT-41259 Level 4 Est. Patient 16:40:46 CDT Twin Franks MD [facility] CPT-57549 Level 3 Est. Patient 14:26:47 CDT Lev Huang MD [facility] CPT-45144 Level 3 Est. Patient 15:32:55 CDT Karen Cummins MD PhD [facility] CPT-72941 Level 3 Est. Patient 16:58:58 CDT Twin Franks MD [facility] CPT-47858 Level 3 Est. Patient 15:10:24 CDT Twin Franks MD [facility] CPT-73665 Level 3 Est. Patient 11:09:46 DOUBLE REAMER OPERATOR Twin Franks MD [facility] CPT-86304 Level 3 Est. Patient 16:59:32 DOUBLE REAMER OPERATOR Twin Franks MD [facility] Procedures Code Procedure Name Date Entry Date Standard Description CPT-32981 IM or SQ Injection 12:06:22 CDT CPT-J1885 Toradol 30 mg (Ketorolac) 11:30:17 CDT CPT-64439 Spec Collection and Handling Fee 16:40:47 CDT CPT-J1055 Depo Provera 150 mg (Medroxyprogesterone) 09:01:32 CDT CPT-92905 Abx/Therapy Injection 09:01:32 CDT CPT-40475 Abx/Therapy Injection 11:43:35 CDT CPT-J1055 Depo Provera 150 mg (Medroxyprogesterone) 15:22:54 CDT CPT-87870 Spec Collection and Handling Fee 15:10:24 CDT
--- OUTSIDE RECORDS SUMMARY | 2017-09-07 12:13 | XMS REPORT | Clinical Summary ---
Author Author Admin, MARY [facility] Address Unknown Phone Unavailable Allergies, Adverse Reactions, Alerts Allergy Name Reaction Description Start Date Severity Status Provider No Known Allergies Alexandra Salvadorford [facility] Conditions or Problems Problem Name Problem Code [...] and vulvovaginitis, unspecified SINUSITIS, ACUTE ICD-461.9 Inactive Karen Cummins MD PhD HEADACHE, TENSION ICD-307.81 Inactive Karen Cummins MD PhD SINUSITIS, ACUTE ICD-461.9 Inactive Twin Franks MD Medication List Medication Instructions Start Date Stop Date Generic Name NDC Status Provider Patient Instruction FLAGYL 500 MG TABS 1 pill by mouth twice daily METRONIDAZOLE 14882003937 No Longer Active Karen Cummins MD PhD Active PREDNISONE 20 MG TAB 2 tabs daily for 4 days, 1 tab daily for 4 days, 1/2 tab daily for 4 days PREDNISONE 65740096896 No Longer Active Karen Cummins MD PhD Active FIORICET 325-50-40 MG TAB 1 tablet by mouth four times daily as needed 05/27 [id number] 27938260425 Active Twin Franks MD Active AMOXICILLIN 500 MG CAPS 2 po BID x 10 days AMOXICILLIN 82412409078 No Longer Active Twin Franks MD Active IBUPROFEN 800 MG TABS 1 tab every 8 hours as needed IBUPROFEN 54318884241 No Longer Active Twin Franks MD Active FLONASE 50 MCG/ACT SUSP 2 puffs in each nostril daily FLUTICASONE PROPIONATE 26942417764 No Longer Active Twin Franks MD Active AMOXICILLIN 500 MG CAPS 2 po BID x 10 days AMOXICILLIN 74424928948 No Longer Active Twin Franks MD Active AMOXICILLIN 500 MG CAPS 2 po BID x 10 days AMOXICILLIN 34497104587 No Longer Active Twin Franks MD Active FLONASE 50 MCG/ACT SUSP 2 puffs in each nostril daily FLONASE 50 MCG/ACT SUSP 902069 FLUTICASONE PROPIONATE Inactive IBUPROFEN 800 MG TABS 1 tab every 8 hours as needed IBUPROFEN 800 MG TABS 971637 IBUPROFEN Inactive PREDNISONE 20 MG TAB 2 tabs daily for 4 days, 1 tab daily for 4 days, 1/2 tab daily for 4 days PREDNISONE 20 MG TAB 100565 PREDNISONE Inactive AMOXICILLIN 500 MG CAPS 2 po BID x 10 days AMOXICILLIN 500 MG CAPS 592974 AMOXICILLIN Inactive AMOXICILLIN 500 MG CAPS 2 po BID x 10 days AMOXICILLIN 500 MG CAPS 055343 AMOXICILLIN Inactive AMOXICILLIN 500 MG CAPS 2 po BID x 10 days AMOXICILLIN 500 MG CAPS 317978 AMOXICILLIN Inactive FLAGYL 500 MG TABS 1 pill by mouth twice daily FLAGYL 500 MG TABS 091526 METRONIDAZOLE Inactive Vital Signs Date Name Value Unit Range Description blood pressure, diastolic - 8462-4 70 mm[Hg] BP lee blood pressure, systolic - 8480-6 111 mm[Hg] BP sys pulse rate E&M - 8867-4 72 /min Heart rate temperature E&M 98.2 [degF] Body temperature weight E&M - 3141-9 113.12 [lb_av] Weight Measured Diagnostic Results Date Name Value Unit Range Description Lab Report: Chlamydia/GC APTIMA/70715 - Lab chlamydia DNA probe NOT DETECTED NOT DETECTED Lab Report: Chlamydia/GC APTIMA/39556 - Microbiology Neisseria gonorrhoeae DNA probe NOT [...] Negative Encounters Code Encounter Date Provider Facility CPT-34389 Level 3 Est. Patient 15:32:55 CDT Karen Cummins MD PhD [facility] CPT-84145 Level 3 Est. Patient 16:58:58 CDT Twin Franks MD [facility] CPT-93470 Level 3 Est. Patient 15:10:24 CDT Twin Franks MD [facility] CPT-79264 Level 3 Est. Patient 11:09:46 SATURATOR Twin Franks MD [facility] CPT-28634 Level 3 Est. Patient 16:59:32 SATURATOR Twin Franks MD [facility] Procedures Code Procedure Name Date Entry Date Standard Description CPT-J1055 Depo Provera 150 mg (Medroxyprogesterone) 09:01:32 CDT CPT-10108 Abx/Therapy Injection 09:01:32 CDT CPT-47815 Abx/Therapy Injection 11:43:35 CDT CPT-J1055 Depo Provera 150 mg (Medroxyprogesterone) 15:22:54 CDT CPT-71084 Spec Collection and Handling Fee 15:10:24 CDT
--- OUTSIDE RECORDS SUMMARY | 2017-09-07 12:13 | XMS REPORT | Clinical Summary ---
Author Author Admin, MARY Organization [facility] Address Unknown Phone Unavailable Allergies, Adverse Reactions, [...] tablet by mouth twice daily CIPROFLOXACIN HCL 15395000019 Active Lev Huang MD Active FIORICET 325-50-40 MG TAB 1 tablet by mouth four times daily as needed 05/27 [id number] 37197252804 No Longer Active Lev Huang MD Active FLAGYL 500 MG TABS 1 pill by mouth twice daily METRONIDAZOLE 91550704074 No Longer Active Karen Cummins MD PhD Active PREDNISONE 20 MG TAB 2 tabs daily for 4 days, 1 tab daily for 4 days, 1/2 tab daily for 4 days PREDNISONE 77110181995 No Longer Active Karen Cummins MD PhD Active AMOXICILLIN 500 MG CAPS 2 po BID x 10 days AMOXICILLIN 32454972797 No Longer Active Twin Franks MD Active IBUPROFEN 800 MG TABS 1 tab every 8 hours as needed IBUPROFEN 56557567739 No Longer Active Twin Franks MD Active FLONASE 50 MCG/ACT SUSP 2 puffs in each nostril daily FLUTICASONE PROPIONATE 34336267885 No Longer Active Twin Franks MD Active AMOXICILLIN 500 MG CAPS 2 po BID x 10 days AMOXICILLIN 13989735490 No Longer Active Twin Franks MD Active AMOXICILLIN 500 MG CAPS 2 po BID x 10 days AMOXICILLIN 68410065377 No Longer Active Twin Franks MD Active FLONASE 50 MCG/ACT SUSP 2 puffs in each nostril daily FLONASE 50 MCG/ACT SUSP FLUTICASONE PROPIONATE Inactive IBUPROFEN 800 MG TABS 1 tab every 8 hours as needed IBUPROFEN 800 MG TABS 893102 IBUPROFEN Inactive PREDNISONE 20 MG TAB 2 tabs daily for 4 days, 1 tab daily for 4 days, 1/2 tab daily for 4 days PREDNISONE 20 MG TAB 792251 PREDNISONE Inactive FIORICET 325-50-40 MG TAB 1 tablet by mouth four times daily as needed 05/27 FIORICET 325-50-40 MG TAB [id number] Inactive AMOXICILLIN 500 MG CAPS 2 po BID x 10 days AMOXICILLIN 500 MG CAPS 406305 AMOXICILLIN Inactive AMOXICILLIN 500 MG CAPS 2 po BID x 10 days AMOXICILLIN 500 MG CAPS 128273 AMOXICILLIN Inactive AMOXICILLIN 500 MG CAPS 2 po BID x 10 days AMOXICILLIN 500 MG CAPS 795274 AMOXICILLIN Inactive FLAGYL 500 MG TABS 1 pill by mouth twice daily FLAGYL 500 MG TABS 387944 METRONIDAZOLE Inactive Vital Signs Date Name Value [...] Measured Encounters Code Encounter Date Provider Facility CPT-88440 Level 3 Est. Patient 14:26:47 CDT Lev Huang MD [facility] CPT-10886 Level 3 Est. Patient 15:32:55 CDT Karen Cummins MD PhD [facility] CPT-43576 Level 3 Est. Patient 16:58:58 CDT Twin Franks MD [facility] CPT-44565 Level 3 Est. Patient 15:10:24 CDT Twin Franks MD [facility] CPT-07409 Level 3 Est. 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
--- OUTSIDE RECORDS SUMMARY | 2017-09-07 12:13 | XMS REPORT | Clinical Summary ---
Author Author Admin, MARY Organization [facility] Address Unknown Phone Unavailable Allergies, Adverse Reactions, Alerts Allergy Name Reaction Description Start Date Severity Status Provider No Known Allergies Jenni Lyman MA Conditions or Problems Problem Name Problem Code Onset Date Status Entry Date Provider Comment Standard Description Annotate SINUSITIS, ACUTE 461.9 Resolved wTin Franks MD Acute sinusitis, unspecified ROUTINE GYNECOLOGICAL [...] Headache Drug abuse 305.90 Active Jillina Frazell RADIOLOGICAL TECHNICIAN Other, mixed, or unspecified drug abuse, unspecified use Anxiety 300.00 Active Jillina Frazell RADIOLOGICAL TECHNICIAN Anxiety state, unspecified DYSURIA 788.1 Resolved Twin [...] MD UTI ICD-599.0 Inactive Twin Franks MD SINUSITIS, ACUTE ICD-461.9 Inactive Twin Franks MD DYSURIA ICD-788.1 Inactive Twin Franks MD 08/07 Sinusitis, acute ICD-461.9 Inactive Twin Franks MD Vaginal discharge ICD-623.5 Inactive Twin Franks MD Medication List Medication Instructions Start Date Stop Date Generic Name NDC Status Provider Patient Instruction FLAGYL 500 MG ORAL TABLET 4 tabs (2gms) po x1. do not mix with ETOH METRONIDAZOLE 32002207170 Active Sasha Grande APRN Active MACROBID 100 MG ORAL CAPSULE 1 cap by mouth twice daily NITROFURANTOIN MONOHYD MACRO 99136738080 Active Geraldllina Harjinder GUERRERO Active BACTRIM DS 800-160 MG ORAL TABLET 1 po BID x 7 days SULFAMETHOXAZOLE-TRIMETHOPRIM 45467941578 No Longer Active Twin Franks MD Active CELEXA 20 MG ORAL TABLET Take one tab po daily CITALOPRAM HYDROBROMIDE 99608985973 Active Twin Franks MD Active PHENAZOPYRIDINE HCL 100 MG ORAL TABLET 1 tab po bid PHENAZOPYRIDINE HCL 41219028065 No Longer Active Twin Franks MD Active CIPRO 500 MG ORAL TABLET 1 tablet by mouth twice daily CIPROFLOXACIN HCL 42101669588 No Longer Active Twin Franks MD Active TRAMADOL HCL 50 MG ORAL TABLET 1-2 tablets every 6 hours as needed for pain TRAMADOL HCL 72850189196 No Longer Active Jillina Frazell RADIOLOGICAL TECHNICIAN Active CYCLOBENZAPRINE HCL 10 MG ORAL TABLET 1 tab po q pm, prn tamayo CYCLOBENZAPRINE HCL 48239794971 No Longer Active Jillina Frazell RADIOLOGICAL TECHNICIAN Active DIFLUCAN 100 MG ORAL TABLET 1 tablet by mouth x 1 FLUCONAZOLE 98359945171 No Longer Active Jillina Frazell RADIOLOGICAL TECHNICIAN Active BUSPIRONE HCL 7.5 MG ORAL TABLET 1 pill twice daily, for anxiety BUSPIRONE HCL 84412337907 No Longer Active Jillina Frazell RADIOLOGICAL TECHNICIAN Active FLAGYL 500 MG ORAL TABLET 1 tab po bid for 7 days METRONIDAZOLE 80759395894 No Longer Active Jillina Fraalessandral RADIOLOGICAL TECHNICIAN Active PREDNISONE 20 MG ORAL TABLET 2 po qd x 3 days PREDNISONE 51891486566 No Longer Active Twin Franks MD Active AMOXICILLIN 500 MG ORAL CAPSULE 1 po TID x 10 days AMOXICILLIN 40161130103 No Longer Active Twin Franks MD Active CIPRO 500 MG ORAL TABLET 1 tablet by mouth twice daily CIPROFLOXACIN HCL 53868961014 No Longer Active Lev Huang MD Active FIORICET 325-50-40 MG TAB 1 tablet by mouth four times daily as needed 05/27 [id number] 96935749945 No Longer Active Lev Huang MD Active FLAGYL 500 MG ORAL TABLET 1 pill by mouth twice daily METRONIDAZOLE 25030736535 No Longer Active Karen Cummins MD PhD Active PREDNISONE 20 MG ORAL TABLET 2 tabs daily for 4 days, 1 tab daily for 4 days, 1/2 tab daily for 4 days PREDNISONE 21675829272 No Longer Active Karen Cummins MD PhD Active AMOXICILLIN 500 MG ORAL CAPSULE 2 po BID x 10 days AMOXICILLIN 29807797936 No Longer Active Twin Franks MD Active IBUPROFEN 800 MG ORAL TABLET 1 tab every 8 hours as needed 03/15 IBUPROFEN 56875111197 No Longer Active Twin Franks MD Active FLONASE 50 MCG/ACT NASAL SUSPENSION 2 puffs in each nostril daily FLUTICASONE PROPIONATE 27958514373 No Longer Active Twin Franks MD Active AMOXICILLIN 500 MG ORAL CAPSULE 2 po BID x 10 days AMOXICILLIN 42214259132 No Longer Active Twin Franks MD Active AMOXICILLIN 500 MG ORAL CAPSULE 2 po BID x 10 days AMOXICILLIN 10583835947 No Longer Active Twin Franks MD Active FLONASE 50 MCG/ACT NASAL SUSPENSION 2 puffs in each nostril daily FLONASE 50 MCG/ACT NASAL SUSPENSION 9982442 FLUTICASONE PROPIONATE Inactive IBUPROFEN 800 MG ORAL TABLET 1 tab every 8 hours as needed 03/15 IBUPROFEN 800 MG ORAL TABLET 139183 IBUPROFEN Inactive PREDNISONE 20 MG ORAL TABLET 2 tabs daily for 4 days, 1 tab daily for 4 days, 1/2 tab daily for 4 days PREDNISONE 20 MG ORAL TABLET 271040 PREDNISONE Inactive FIORICET 325-50-40 MG TAB 1 tablet by mouth four times daily as needed 05/27 FIORICET 325-50-40 MG TAB [id number] Inactive FLAGYL 500 MG ORAL TABLET 1 tab po bid for 7 days FLAGYL 500 MG ORAL TABLET 626388 METRONIDAZOLE Inactive BUSPIRONE HCL 7.5 MG ORAL TABLET 1 pill twice daily, for anxiety BUSPIRONE HCL 7.5 MG ORAL TABLET 381595 BUSPIRONE HCL Inactive DIFLUCAN 100 MG ORAL TABLET 1 tablet by mouth x 1 DIFLUCAN 100 MG ORAL TABLET 550225 FLUCONAZOLE Inactive CYCLOBENZAPRINE HCL 10 MG ORAL TABLET 1 tab po q pm, prn tamayo 10/11 CYCLOBENZAPRINE HCL 10 MG ORAL TABLET 284787 CYCLOBENZAPRINE HCL Inactive TRAMADOL HCL 50 MG ORAL TABLET 1-2 tablets every 6 hours as needed for pain TRAMADOL HCL 50 MG ORAL TABLET 825255 TRAMADOL HCL Inactive CIPRO 500 MG ORAL TABLET 1 tablet by mouth twice daily CIPRO 500 MG ORAL TABLET 690942 CIPROFLOXACIN HCL Inactive PHENAZOPYRIDINE HCL 100 MG ORAL TABLET 1 tab po bid PHENAZOPYRIDINE HCL 100 MG ORAL TABLET 6128614 PHENAZOPYRIDINE HCL Inactive AMOXICILLIN 500 MG ORAL CAPSULE 2 po BID x 10 days AMOXICILLIN 500 MG ORAL CAPSULE 313262 AMOXICILLIN Inactive AMOXICILLIN 500 MG ORAL CAPSULE 2 po BID x 10 days AMOXICILLIN 500 MG ORAL CAPSULE 711470 AMOXICILLIN Inactive AMOXICILLIN 500 MG ORAL CAPSULE 2 po BID x 10 days AMOXICILLIN 500 MG ORAL CAPSULE 058095 AMOXICILLIN Inactive FLAGYL 500 MG ORAL TABLET 1 pill by mouth twice daily FLAGYL 500 MG ORAL TABLET 095466 METRONIDAZOLE Inactive CIPRO 500 MG ORAL TABLET 1 tablet by mouth twice daily CIPRO 500 MG ORAL TABLET 495807 CIPROFLOXACIN HCL Inactive AMOXICILLIN 500 MG ORAL CAPSULE 1 po TID x 10 days AMOXICILLIN 500 MG ORAL CAPSULE 426189 AMOXICILLIN Inactive PREDNISONE 20 MG ORAL TABLET 2 po qd x 3 days PREDNISONE 20 MG ORAL TABLET 768924 PREDNISONE Inactive BACTRIM DS 800-160 MG ORAL TABLET 1 po BID x 7 days BACTRIM DS 800-160 MG ORAL TABLET 143331 SULFAMETHOXAZOLE-TRIMETHOPRIM Inactive Vital Signs Date Name Value [...] W/DIFF, UHCG, UADIP W/MICRO, AUTO - Chemistry RBC, urine, dipstick Trace-intact Negative human chorionic gonadotropin, urine, qualitative (urine test) Negative Negative protein, total urine random Negative mg/dL Negative Lab Report: CBC W/DIFF, UHCG, UADIP W/MICRO, AUTO - Hematology hemoglobin, blood 15.0 g/dL 12.0-16.0 hematocrit, blood 43.5 % 37.0-47.0 mean corpuscular volume, RBC 97 fL 80-97 mean corpuscular hemoglobin, RBC 33.6 pg 27.0-31.2 mean corpuscular hemoglobin concentration, RBC 34.5 G/DL % 31.8- 35.4 red blood cell distribution width 12.5 % 13.0-18.0 platelet count 229 10^3/MM^3 10*3/mm3 742-045 0083/08/16 erythrocyte (RBC) count 4.46 10^6/MM^3 10*6/mm3 3.80-5.80 lymphocytes as percent of blood leukocytes 24.2 % 20.5-51.1 monocytes as percent of blood leukocytes 5.7 % 1.7-9.3 neutrophils as percent of blood leukocytes 63.2 % 42.2-75.2 leukocyte count, blood 7.4 10^3/MM^3 10*3/mm3 4.6-10.2 Lab Report: CBC W/DIFF, UHCG, UADIP W/MICRO, AUTO - Urinalysis urine color Light yellow Colorless;Lightyellow;Straw;Yellow appearance, urine Slightly Cloudy Clear specific gravity, urine 1.010 1.000-1.030 pH, urine, semiquantitative 7.0 5.0-8.5 urobilinogen, urine, semiquantitative (dipstick) 0.2 E.U./dL Normal leukocyte esterase, urine, by dipstick 1+ Negative nitrite, urine, semiquantitative Negative Negative glucose, urine, semiquantitative Negative Negative ketones, urine, by test strip Negative Negative bilirubin, urine Negative Negative Lab Report: Chlamydia/GC APTIMA/45579 - Lab chlamydia DNA probe NOT DETECTED NOT DETECTED chlamydia DNA probe NOT DETECTED NOT DETECTED chlamydia DNA probe NOT DETECTED NOT DETECTED Lab Report: Chlamydia/GC APTIMA/15886 - Microbiology Neisseria gonorrhoeae DNA probe NOT DETECTED NOT DETECTED Neisseria gonorrhoeae DNA probe NOT DETECTED NOT DETECTED Neisseria gonorrhoeae DNA probe NOT DETECTED NOT DETECTED Lab Report: Comp. Metabolic Panel, Free Thyroxine (L), Thyroid Stimulati ... - Chemistry sodium, serum 140 mmol/L 589-224 5251/08/16 carbon dioxide, venous blood 32.2 mmol/L 21.0-32.0 [...] UADIP W/MICRO, AUTO, Wet Prep - Chemistry RBC, urine, dipstick Negative Negative protein, total urine random Negative mg/dL Negative Lab Report: UADIP W/MICRO, AUTO, Wet Prep - Urinalysis glucose, urine, semiquantitative Negative Negative ketones, urine, by test strip Negative Negative bilirubin, urine Negative Negative urobilinogen, urine, semiquantitative (dipstick) 0.2 E.U./dL Normal leukocyte esterase, urine, by dipstick 3+ Negative nitrite, urine, semiquantitative Negative Negative urine color Dark yellow Colorless;Lightyellow;Straw;Yellow appearance, urine Cloudy Clear specific gravity, urine 1.015 1.000-1.030 pH, urine, semiquantitative 6.0 5.0-8.5 Encounters Code Encounter Date Provider Facility CPT-55044 Level 3 Est. Patient 11:19:27 RESTORATION TECHNICIAN Sasha Grande [facility] CPT-80966 Level 3 Est. Patient 16:51:52 CDT Twin Franks MD [facility] CPT-77788 Level 3 Est. Patient 10:46:44 CDT Sasha Grande [facility] CPT-58915 Level 3 Est. Patient 11:22:49 CDT Sasha Grande [facility] CPT-40878 Level 4 Est. Patient 16:40:46 CDT Twin Franks MD [facility] CPT-05539 Level 3 Est. Patient 14:26:47 CDT Lev Huang MD [facility] CPT-28636 Level 3 Est. Patient 15:32:55 CDT Karen Cummins MD PhD [facility] CPT-35165 Level 3 Est. Patient 16:58:58 CDT Twin Franks MD [facility] CPT-12074 Level 3 Est. Patient 15:10:24 CDT Twin Franks MD [facility] CPT-19161 Level 3 Est. Patient 11:09:46 RESTORATION TECHNICIAN Twin Franks MD [facility] CPT-96964 Level 3 Est. Patient 16:59:32 RESTORATION TECHNICIAN Twin Franks MD [facility] Procedures Code Procedure Name Date Entry Date Standard Description CPT-15999 Spec Collection and Handling Fee 11:23:53 RESTORATION TECHNICIAN CPT-83004 IM or SQ Injection 12:06:22 CDT CPT-J1885 Toradol 30 mg (Ketorolac) 11:30:17 CDT CPT-07083 Spec Collection and Handling Fee 16:40:47 CDT CPT-J1055 Depo Provera 150 mg (Medroxyprogesterone) 09:01:32 CDT CPT-67132 Abx/Therapy Injection 09:01:32 CDT CPT-11371 Abx/Therapy Injection 11:43:35 CDT CPT-J1055 Depo Provera 150 mg (Medroxyprogesterone) 15:22:54 CDT CPT-31368 Spec Collection and Handling Fee 15:10:24 CDT
--- OUTSIDE RECORDS SUMMARY | 2017-09-07 12:13 | XMS REPORT | Clinical Summary ---
Author Author Admin, MARY Organization [facility] Address Unknown Phone Unavailable Allergies, [...] 2 po qd x 3 days PREDNISONE 16132977415 Active Twin Franks MD Active AMOXICILLIN 500 MG ORAL CAPS 1 po TID x 10 days AMOXICILLIN 13045816140 Active Twin Franks MD Active CIPRO 500 MG TAB 1 tablet by mouth twice daily CIPROFLOXACIN HCL 87890231142 No Longer Active Lev Huang MD Active FIORICET 325-50-40 MG TAB 1 tablet by mouth four times daily as needed 05/27 [id number] 88040316427 No Longer Active Lev Huang MD Active FLAGYL 500 MG TABS 1 pill by mouth twice daily METRONIDAZOLE 39857292461 No Longer Active Karen Cummins MD PhD Active PREDNISONE 20 MG TAB 2 tabs daily for 4 days, 1 tab daily for 4 days, 1/2 tab daily for 4 days PREDNISONE 59484064182 No Longer Active Karen Cummins MD PhD Active AMOXICILLIN 500 MG CAPS 2 po BID x 10 days AMOXICILLIN 70700181480 No Longer Active Twin Franks MD Active IBUPROFEN 800 MG TABS 1 tab every 8 hours as needed IBUPROFEN 04282507384 No Longer Active Twin Franks MD Active FLONASE 50 MCG/ACT SUSP 2 puffs in each nostril daily FLUTICASONE PROPIONATE 16841957843 No Longer Active Twin Franks MD Active AMOXICILLIN 500 MG CAPS 2 po BID x 10 days AMOXICILLIN 97673103639 No Longer Active Twin Franks MD Active AMOXICILLIN 500 MG CAPS 2 po BID x 10 days AMOXICILLIN 84398258471 No Longer Active Twin Franks MD Active FLONASE 50 MCG/ACT SUSP 2 puffs in each nostril daily FLONASE 50 MCG/ACT SUSP 9226613 FLUTICASONE PROPIONATE Inactive IBUPROFEN 800 MG TABS 1 tab every 8 hours as needed IBUPROFEN 800 MG TABS 787108 IBUPROFEN Inactive PREDNISONE 20 MG TAB 2 tabs daily for 4 days, 1 tab daily for 4 days, 1/2 tab daily for 4 days PREDNISONE 20 MG TAB 206272 PREDNISONE Inactive FIORICET 325-50-40 MG TAB 1 tablet by mouth four times daily as needed 05/27 FIORICET 325-50-40 MG TAB [id number] Inactive AMOXICILLIN 500 MG CAPS 2 po BID x 10 days AMOXICILLIN 500 MG CAPS 547248 AMOXICILLIN Inactive AMOXICILLIN 500 MG CAPS 2 po BID x 10 days AMOXICILLIN 500 MG CAPS 124402 AMOXICILLIN Inactive AMOXICILLIN 500 MG CAPS 2 po BID x 10 days AMOXICILLIN 500 MG CAPS 429617 AMOXICILLIN Inactive FLAGYL 500 MG TABS 1 pill by mouth twice daily FLAGYL 500 MG TABS 379405 METRONIDAZOLE Inactive CIPRO 500 MG TAB 1 tablet by mouth twice daily CIPRO 500 MG TAB 781225 CIPROFLOXACIN HCL Inactive Vital Signs Date Name [...] Measured Encounters Code Encounter Date Provider Facility CPT-22497 Level 4 Est. Patient 16:40:46 CDT Twin Franks MD [facility] CPT-54741 Level 3 Est. Patient 14:26:47 CDT Lev Huang MD [facility] CPT-58698 Level 3 Est. Patient 15:32:55 CDT Karen Cummins MD, PhD [facility] CPT-67145 Level 3 Est. Patient 16:58:58 CDT Twin Franks MD [facility] CPT-37230 Level 3 Est. Patient 15:10:24 CDT Twin Franks MD [facility] CPT-46515 Level 3 Est. 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 Patient 16:59:32 STRING WINDING MACHINE OPERATOR Twin Franks MD [facility] Procedures Code Procedure Name Date Entry Date Standard Description CPT-65607 Spec Collection and Handling Fee 16:40:47 CDT CPT-J1055 Depo Provera 150 mg (Medroxyprogesterone) 09:01:32 CDT CPT-06476 Abx/Therapy Injection 09:01:32 CDT CPT-09450 Abx/Therapy Injection 11:43:35 CDT CPT-J1055 Depo Provera 150 mg (Medroxyprogesterone) 15:22:54 CDT CPT-03749 Spec Collection and Handling Fee 15:10:24 CDT
--- OUTSIDE RECORDS SUMMARY | 2017-09-07 12:14 | XMS REPORT | Clinical Summary ---
Author Author Admin, MARY Organization [facility] Address Unknown Phone Unavailable Allergies, Adverse Reactions, Alerts Allergy Name Reaction Description Start Date Severity Status Provider No Known Allergies Alexandra Salvadorford [facility] Conditions or Problems Problem Name [...] 1 pill by mouth twice daily METRONIDAZOLE 05154526141 Active Karen Cummins MD PhD Active PREDNISONE 20 MG TAB 2 tabs daily for 4 days, 1 tab daily for 4 days, 1/2 tab daily for 4 days PREDNISONE 41319906223 No Longer Active Karen Cummins MD PhD Active FIORICET 325-50-40 MG TAB 1 tablet by mouth four times daily as needed 05/27 [id number] 46200395989 Active Twin Franks MD Active AMOXICILLIN 500 MG CAPS 2 po BID x 10 days AMOXICILLIN 06599942059 No Longer Active Twin Franks MD Active IBUPROFEN 800 MG TABS 1 tab every 8 hours as needed IBUPROFEN 82837833225 No Longer Active Twin Franks MD Active FLONASE 50 MCG/ACT SUSP 2 puffs in each nostril daily FLUTICASONE PROPIONATE 78245676528 No Longer Active Twin Franks MD Active AMOXICILLIN 500 MG CAPS 2 po BID x 10 days AMOXICILLIN 41727648536 No Longer Active Twin Franks MD Active AMOXICILLIN 500 MG CAPS 2 po BID x 10 days AMOXICILLIN 12637124961 No Longer Active Twin Franks MD Active FLONASE 50 MCG/ACT SUSP 2 puffs in each nostril daily FLONASE 50 MCG/ACT SUSP 225405 FLUTICASONE PROPIONATE Inactive IBUPROFEN 800 MG TABS 1 tab every 8 hours as needed IBUPROFEN 800 MG TABS 129088 IBUPROFEN Inactive PREDNISONE 20 MG TAB 2 tabs daily for 4 days, 1 tab daily for 4 days, 1/2 tab daily for 4 days PREDNISONE 20 MG TAB 857382 PREDNISONE Inactive AMOXICILLIN 500 MG CAPS 2 po BID x 10 days AMOXICILLIN 500 MG CAPS 281540 AMOXICILLIN Inactive AMOXICILLIN 500 MG CAPS 2 po BID x 10 days AMOXICILLIN 500 MG CAPS 362261 AMOXICILLIN Inactive AMOXICILLIN 500 MG CAPS 2 po BID x 10 days AMOXICILLIN 500 MG CAPS 105454 AMOXICILLIN Inactive Vital Signs Date Name Value Unit Range Description blood pressure, diastolic - 8462-4 70 mm[Hg] BP lee blood pressure, systolic - 8480-6 111 mm[Hg] BP sys pulse rate E&M - 8867-4 72 /min Heart rate temperature E&M 98.2 [degF] Body temperature weight E&M - 3141-9 113.12 [lb_av] Weight Measured Diagnostic Results Date Name Value Unit Range Description Lab Report: Chlamydia/GC APTIMA/25617 - Lab chlamydia DNA probe NOT DETECTED NOT DETECTED Lab Report: Chlamydia/GC APTIMA/59190 - Microbiology Neisseria gonorrhoeae DNA probe NOT DETECTED NOT DETECTED Lab Report: UADIP W/MICRO, AUTO - Chemistry protein, total urine random Negative mg/dL Negative RBC, urine, dipstick Negative Negative Lab Report: UADIP W/MICRO, AUTO - Urinalysis urobilinogen, urine, semiquantitative (dipstick) 0.2 Normal leukocyte esterase, urine, by dipstick 2+ Negative nitrite, urine, semiquantitative Negative Negative pH, urine, semiquantitative 6.5 5.0-8.5 specific gravity, urine 1.020 1.000-1.030 appearance, urine Clear Clear urine color Yellow Colorless;Lightyellow;Straw;Yellow glucose, urine, semiquantitative Negative Negative ketones, urine, by test strip Negative Negative bilirubin, urine Negative Negative Encounters Code Encounter Date Provider Facility CPT-36529 Level 3 Est. Patient 15:32:55 CDT Karen Cummins MD PhD [facility] CPT-91137 Level 3 Est. Patient 16:58:58 CDT Twin Franks MD [facility] CPT-53038 Level 3 Est. Patient 15:10:24 CDT Twin Franks MD [facility] CPT-10300 Level 3 Est. 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 Patient 16:59:32 BIOLOGY TEACHER Twin Franks MD [facility] Procedures Code Procedure Name Date Entry Date Standard Description CPT-J1055 Depo Provera 150 mg (Medroxyprogesterone) 09:01:32 CDT CPT-30523 Abx/Therapy Injection 09:01:32 CDT CPT-45578 Abx/Therapy Injection 11:43:35 CDT CPT-J1055 Depo Provera 150 mg (Medroxyprogesterone) 15:22:54 CDT CPT-69900 Spec Collection and Handling Fee 15:10:24 CDT
--- OUTSIDE RECORDS SUMMARY | 2017-09-07 12:14 | XMS REPORT | Clinical Summary ---
Author Author Admin, MARY Costa [facility] Address Unknown Phone Unavailable Allergies, Adverse Reactions, Alerts Allergy Name Reaction Description Start Date Severity Status Provider No Known Allergies Judy Barba RMNahed Conditions or Problems Problem Name Problem Code [...] drug abuse, unspecified use Anxiety 300.00 Active Geraldllrubia Grande APRN Anxiety state, unspecified SINUSITIS, ACUTE [...] pill twice daily, for anxiety BUSPIRONE HCL 16989098662 Active Jillina Harjinder VENEGASN Active DIFLUCAN 100 MG TAB 1 tablet by mouth x 1 FLUCONAZOLE 81709228624 Active Jillina Fraalessandral IMMIGRATION CASE MANAGER Active CYCLOBENZAPRINE HCL 10 MG TABS 1 tab po q pm, prn tamayo CYCLOBENZAPRINE HCL 14238890215 Active Jillina Frazell IMMIGRATION CASE MANAGER Active TRAMADOL HCL 50 MG TABS 1-2 tablets every 6 hours as needed for pain TRAMADOL HCL 86687632008 Active Jillina Fraalessandral IMMIGRATION CASE MANAGER Active FLAGYL 500 MG ORAL TABS 1 tab po bid for 7 days METRONIDAZOLE 35299659537 No Longer Active Geraldllina Harjinder GUERRERO Active PREDNISONE 20 MG ORAL TABS 2 po qd x 3 days PREDNISONE 35756517857 No Longer Active Twin Franks MD Active AMOXICILLIN 500 MG ORAL CAPS 1 po TID x 10 days AMOXICILLIN 93904466049 No Longer Active Twin Franks MD Active CIPRO 500 MG TAB 1 tablet by mouth twice daily CIPROFLOXACIN HCL 78495382624 No Longer Active Lev Huang MD Active FIORICET 325-50-40 MG TAB 1 tablet by mouth four times daily as needed 05/27 [id number] 07298154773 No Longer Active Lev Huang MD Active FLAGYL 500 MG TABS 1 pill by mouth twice daily METRONIDAZOLE 07964005884 No Longer Active Karen Cummins MD PhD Active PREDNISONE 20 MG TAB 2 tabs daily for 4 days, 1 tab daily for 4 days, 1/2 tab daily for 4 days PREDNISONE 73585920392 No Longer Active Karen Cummins MD PhD Active AMOXICILLIN 500 MG CAPS 2 po BID x 10 days AMOXICILLIN 47359052543 No Longer Active Twin Franks MD Active IBUPROFEN 800 MG TABS 1 tab every 8 hours as needed IBUPROFEN 90924131449 No Longer Active Twin Franks MD Active FLONASE 50 MCG/ACT SUSP 2 puffs in each nostril daily FLUTICASONE PROPIONATE 77004961081 No Longer Active Twin Franks MD Active AMOXICILLIN 500 MG CAPS 2 po BID x 10 days AMOXICILLIN 72983228315 No Longer Active Twin Franks MD Active AMOXICILLIN 500 MG CAPS 2 po BID x 10 days AMOXICILLIN 00877504873 No Longer Active Twin Franks MD Active FLONASE 50 MCG/ACT SUSP 2 puffs in each nostril daily FLONASE 50 MCG/ACT SUSP 0661864 FLUTICASONE PROPIONATE Inactive IBUPROFEN 800 MG TABS 1 tab every 8 hours as needed IBUPROFEN 800 MG TABS 653594 IBUPROFEN Inactive PREDNISONE 20 MG TAB 2 tabs daily for 4 days, 1 tab daily for 4 days, 1/2 tab daily for 4 days PREDNISONE 20 MG TAB 610879 PREDNISONE Inactive FIORICET 325-50-40 MG TAB 1 tablet by mouth four times daily as needed 05/27 FIORICET 325-50-40 MG TAB [id number] Inactive FLAGYL 500 MG ORAL TABS 1 tab po bid for 7 days FLAGYL 500 MG ORAL TABS 271623 METRONIDAZOLE Inactive AMOXICILLIN 500 MG CAPS 2 po BID x 10 days AMOXICILLIN 500 MG CAPS 001032 AMOXICILLIN Inactive AMOXICILLIN 500 MG CAPS 2 po BID x 10 days AMOXICILLIN 500 MG CAPS 868322 AMOXICILLIN Inactive AMOXICILLIN 500 MG CAPS 2 po BID x 10 days AMOXICILLIN 500 MG CAPS 776925 AMOXICILLIN Inactive FLAGYL 500 MG TABS 1 pill by mouth twice daily FLAGYL 500 MG TABS 705295 METRONIDAZOLE Inactive CIPRO 500 MG TAB 1 tablet by mouth twice daily CIPRO 500 MG TAB 007346 CIPROFLOXACIN HCL Inactive AMOXICILLIN 500 MG ORAL CAPS 1 po TID x 10 days AMOXICILLIN 500 MG ORAL CAPS 001551 AMOXICILLIN Inactive PREDNISONE 20 MG ORAL TABS 2 po qd x 3 days PREDNISONE 20 MG ORAL TABS 076060 PREDNISONE Inactive Vital Signs Date Name Value [...] urine, semiquantitative Negative Negative Lab Report: Chlamydia/GC APTIMA/[id number] - Lab chlamydia DNA probe NOT DETECTED NOT DETECTED Lab Report: Chlamydia/GC APTIMA/18626 - Microbiology Neisseria gonorrhoeae DNA probe NOT DETECTED NOT DETECTED Lab Report: Comp. Metabolic Panel, Free Thyroxine (L), Thyroid Stimulati ... - Chemistry sodium, serum 140 mmol/L 725-923 5794/08/16 carbon dioxide, venous blood 32.2 mmol/L 21.0-32.0 [...] 0.36-3.74 Encounters Code Encounter Date Provider Facility CPT-17189 Level 3 Est. Patient 11:22:49 CDT Sasha Grande [facility] CPT-33122 Level 4 Est. Patient 16:40:46 CDT Twin Franks MD [facility] CPT-76273 Level 3 Est. Patient 14:26:47 CDT Lev Huang MD [facility] CPT-41522 Level 3 Est. Patient 15:32:55 CDT Karen Cummins MD PhD [facility] CPT-00614 Level 3 Est. Patient 16:58:58 CDT Twin Franks MD [facility] CPT-82558 Level 3 Est. Patient 15:10:24 CDT Twin Franks MD [facility] CPT-61511 Level 3 Est. 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 Patient 16:59:32 OPERATOR SUPPLY Twin Franks MD [facility] Procedures Code Procedure Name Date Entry Date Standard Description CPT-11365 IM or SQ Injection 12:06:22 CDT CPT-J1885 Toradol 30 mg (Ketorolac) 11:30:17 CDT CPT-90344 Spec Collection and Handling Fee 16:40:47 CDT CPT-J1055 Depo Provera 150 mg (Medroxyprogesterone) 09:01:32 CDT CPT-73481 Abx/Therapy Injection 09:01:32 CDT CPT-58860 Abx/Therapy Injection 11:43:35 CDT CPT-J1055 Depo Provera 150 mg (Medroxyprogesterone) 15:22:54 CDT CPT-81793 Spec Collection and Handling Fee 15:10:24 CDT
--- OUTSIDE RECORDS SUMMARY | 2017-09-07 12:14 | XMS REPORT | Clinical Summary ---
Author Author Admin, MARY Organization [facility] Address Unknown Phone Unavailable Allergies, Adverse [...] 2 po qd x 3 days PREDNISONE 76377381391 Active Twin Franks MD Active AMOXICILLIN 500 MG ORAL CAPS 1 po TID x 10 days AMOXICILLIN 66858993307 Active Twin Franks MD Active CIPRO 500 MG TAB 1 tablet by mouth twice daily CIPROFLOXACIN HCL 03188424706 No Longer Active Lev Huang MD Active FIORICET 325-50-40 MG TAB 1 tablet by mouth four times daily as needed 05/27 [id number] 65317799802 No Longer Active Lev Huang MD Active FLAGYL 500 MG TABS 1 pill by mouth twice daily METRONIDAZOLE 37001877539 No Longer Active Karen Cummins MD PhD Active PREDNISONE 20 MG TAB 2 tabs daily for 4 days, 1 tab daily for 4 days, 1/2 tab daily for 4 days PREDNISONE 26633413894 No Longer Active Karen Cummins MD PhD Active AMOXICILLIN 500 MG CAPS 2 po BID x 10 days AMOXICILLIN 37240507553 No Longer Active Twin Franks MD Active IBUPROFEN 800 MG TABS 1 tab every 8 hours as needed IBUPROFEN 29458793449 No Longer Active Twin Franks MD Active FLONASE 50 MCG/ACT SUSP 2 puffs in each nostril daily FLUTICASONE PROPIONATE 78217056658 No Longer Active Twin Franks MD Active AMOXICILLIN 500 MG CAPS 2 po BID x 10 days AMOXICILLIN 86364755160 No Longer Active Twin Franks MD Active AMOXICILLIN 500 MG CAPS 2 po BID x 10 days AMOXICILLIN 51875763573 No Longer Active Twin Franks MD Active FLONASE 50 MCG/ACT SUSP 2 puffs in each nostril daily FLONASE 50 MCG/ACT SUSP 2658653 FLUTICASONE PROPIONATE Inactive IBUPROFEN 800 MG TABS 1 tab every 8 hours as needed IBUPROFEN 800 MG TABS 377523 IBUPROFEN Inactive PREDNISONE 20 MG TAB 2 tabs daily for 4 days, 1 tab daily for 4 days, 1/2 tab daily for 4 days PREDNISONE 20 MG TAB 326675 PREDNISONE Inactive FIORICET 325-50-40 MG TAB 1 tablet by mouth four times daily as needed 05/27 FIORICET 325-50-40 MG TAB [id number] Inactive AMOXICILLIN 500 MG CAPS 2 po BID x 10 days AMOXICILLIN 500 MG CAPS 214248 AMOXICILLIN Inactive AMOXICILLIN 500 MG CAPS 2 po BID x 10 days AMOXICILLIN 500 MG CAPS 594314 AMOXICILLIN Inactive AMOXICILLIN 500 MG CAPS 2 po BID x 10 days AMOXICILLIN 500 MG CAPS 012498 AMOXICILLIN Inactive FLAGYL 500 MG TABS 1 pill by mouth twice daily FLAGYL 500 MG TABS 910356 METRONIDAZOLE Inactive CIPRO 500 MG TAB 1 tablet by mouth twice daily CIPRO 500 MG TAB 750340 CIPROFLOXACIN HCL Inactive Vital Signs Date Name [...] Measured Encounters Code Encounter Date Provider Facility CPT-36368 Level 4 Est. Patient 16:40:46 CDT Twin Franks MD [facility] CPT-74970 Level 3 Est. Patient 14:26:47 CDT Lev Huang MD [facility] CPT-41268 Level 3 Est. Patient 15:32:55 CDT Karen Cummins MD, PhD [facility] CPT-60407 Level 3 Est. Patient 16:58:58 CDT Twin Franks MD [facility] CPT-98084 Level 3 Est. Patient 15:10:24 CDT Twin Franks MD [facility] CPT-86876 Level 3 Est. Patient 11:09:46 SCRIPT GIRL Twin Franks MD [facility] CPT-30954 Level 3 Est. Patient 16:59:32 SCRIPT GIRL Twin Franks MD [facility] Procedures Code Procedure Name Date Entry Date Standard Description CPT-92463 Spec Collection and Handling Fee 16:40:47 CDT CPT-J1055 Depo Provera 150 mg (Medroxyprogesterone) 09:01:32 CDT CPT-89381 Abx/Therapy Injection 09:01:32 CDT CPT-54069 Abx/Therapy Injection 11:43:35 CDT CPT-J1055 Depo Provera 150 mg (Medroxyprogesterone) 15:22:54 CDT CPT-50913 Spec Collection and Handling Fee 15:10:24 CDT
--- OUTSIDE RECORDS SUMMARY | 2017-09-07 12:14 | XMS REPORT | Clinical Summary ---
Author Author Admin, MARY Csota [facility] Address Unknown Phone Unavailable Allergies, Adverse Reactions, Alerts Allergy Name Reaction Description Start Date Severity Status Provider No Known Allergies Arianna Lewisida Conditions or Problems Problem Name Problem Code [...] tablet by mouth twice daily CIPROFLOXACIN HCL 00176433297 No Longer Active Lev Huang MD Active FIORICET 325-50-40 MG TAB 1 tablet by mouth four times daily as needed 05/27 [id number] 73862404335 No Longer Active Lev Huang MD Active FLAGYL 500 MG TABS 1 pill by mouth twice daily METRONIDAZOLE 23848039032 No Longer Active Karen Cummins MD PhD Active PREDNISONE 20 MG TAB 2 tabs daily for 4 days, 1 tab daily for 4 days, 1/2 tab daily for 4 days PREDNISONE 45953196084 No Longer Active Karen Cummins MD PhD Active AMOXICILLIN 500 MG CAPS 2 po BID x 10 days AMOXICILLIN 14889362881 No Longer Active Twin Franks MD Active IBUPROFEN 800 MG TABS 1 tab every 8 hours as needed IBUPROFEN 28241152713 No Longer Active Twin Franks MD Active FLONASE 50 MCG/ACT SUSP 2 puffs in each nostril daily FLUTICASONE PROPIONATE 85254456540 No Longer Active Twin Franks MD Active AMOXICILLIN 500 MG CAPS 2 po BID x 10 days AMOXICILLIN 79635464532 No Longer Active Twin Franks MD Active AMOXICILLIN 500 MG CAPS 2 po BID x 10 days AMOXICILLIN 08518460969 No Longer Active Twin Franks MD Active FLONASE 50 MCG/ACT SUSP 2 puffs in each nostril daily FLONASE 50 MCG/ACT SUSP FLUTICASONE PROPIONATE Inactive IBUPROFEN 800 MG TABS 1 tab every 8 hours as needed IBUPROFEN 800 MG TABS 013010 IBUPROFEN Inactive PREDNISONE 20 MG TAB 2 tabs daily for 4 days, 1 tab daily for 4 days, 1/2 tab daily for 4 days PREDNISONE 20 MG TAB 260455 PREDNISONE Inactive FIORICET 325-50-40 MG TAB 1 tablet by mouth four times daily as needed 05/27 FIORICET 325-50-40 MG TAB [id number] Inactive AMOXICILLIN 500 MG CAPS 2 po BID x 10 days AMOXICILLIN 500 MG CAPS 440614 AMOXICILLIN Inactive AMOXICILLIN 500 MG CAPS 2 po BID x 10 days AMOXICILLIN 500 MG CAPS 319089 AMOXICILLIN Inactive AMOXICILLIN 500 MG CAPS 2 po BID x 10 days AMOXICILLIN 500 MG CAPS 798673 AMOXICILLIN Inactive FLAGYL 500 MG TABS 1 pill by mouth twice daily FLAGYL 500 MG TABS 434789 METRONIDAZOLE Inactive CIPRO 500 MG TAB 1 tablet by mouth twice daily CIPRO 500 MG TAB 298880 CIPROFLOXACIN HCL Inactive Vital Signs Date Name [...] Measured Encounters Code Encounter Date Provider Facility CPT-76010 Level 3 Est. Patient 14:26:47 CDT Lev Huang MD [facility] CPT-13591 Level 3 Est. Patient 15:32:55 CDT Karen Cummins MD PhD [facility] CPT-74709 Level 3 Est. Patient 16:58:58 CDT Twin Franks MD [facility] CPT-82446 Level 3 Est. Patient 15:10:24 CDT Twin Franks MD [facility] CPT-45241 Level 3 Est. 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 Patient 16:59:32 WIND ENERGY MECHANIC Twin Franks MD [facility] Procedures Code Procedure Name Date Entry Date Standard Description CPT-J1055 Depo Provera 150 mg (Medroxyprogesterone) 09:01:32 CDT CPT-68679 Abx/Therapy Injection 09:01:32 CDT CPT-87830 Abx/Therapy Injection 11:43:35 CDT CPT-J1055 Depo Provera 150 mg (Medroxyprogesterone) 15:22:54 CDT CPT-76083 Spec Collection and Handling Fee 15:10:24 CDT
--- OUTSIDE RECORDS SUMMARY | 2017-09-07 12:15 | XMS REPORT | Clinical Summary ---
Author Author Admin, MARY Organization [facility] Address Unknown Phone Unavailable [...] Headache Drug abuse 305.90 Active Jillina Frazell PARASITOLOGY TEACHER Other, mixed, or unspecified drug abuse, unspecified use Anxiety 300.00 Active Jillina Frazell PARASITOLOGY TEACHER Anxiety state, unspecified DYSURIA 788.1 Resolved Twin Franks MD Dysuria Urinary tract infection 599.0 Active Twin Franks MD Urinary tract infection, site not specified Vaginal discharge 623.5 Active Sasha Grande APRN Leukorrhea, not specified as infective SINUSITIS, ACUTE ICD-461.9 Inactive Karen Cummins MD PhD HEADACHE, TENSION ICD-307.81 Inactive Karen Cummins MD PhD SINUSITIS, ACUTE ICD-461.9 Inactive Twin Franks MD Vaginitis ICD-616.10 Inactive Twin Franks MD UTI ICD-599.0 Inactive Twin Franks MD DYSURIA ICD-788.1 Inactive Twin Franks MD 08/07 Sinusitis, acute ICD-461.9 Inactive Twin Franks MD Vaginal discharge ICD-623.5 Inactive Twin Franks MD Medication List Medication Instructions Start Date Stop Date Generic Name NDC Status Provider Patient Instruction FLAGYL 500 MG ORAL TABLET 4 tabs (2gms) po x1. do not mix with ETOH METRONIDAZOLE 77534900401 Active Sasha Grande APRN Active MACROBID 100 MG ORAL CAPSULE 1 cap by mouth twice daily NITROFURANTOIN MONOHYD MACRO 25252780671 Active Geraldllina Harjinder GUERRERO Active BACTRIM DS 800-160 MG ORAL TABLET 1 po BID x 7 days SULFAMETHOXAZOLE-TRIMETHOPRIM 25451047148 No Longer Active Twin Franks MD Active CELEXA 20 MG ORAL TABLET Take one tab po daily CITALOPRAM HYDROBROMIDE 54987662325 Active Twin Franks MD Active PHENAZOPYRIDINE HCL 100 MG ORAL TABLET 1 tab po bid PHENAZOPYRIDINE HCL 61921305891 No Longer Active Twin Franks MD Active CIPRO 500 MG ORAL TABLET 1 tablet by mouth twice daily CIPROFLOXACIN HCL 26907647838 No Longer Active Twin Franks MD Active TRAMADOL HCL 50 MG ORAL TABLET 1-2 tablets every 6 hours as needed for pain TRAMADOL HCL 49325157771 No Longer Active Jillina Frazell PARASITOLOGY TEACHER Active CYCLOBENZAPRINE HCL 10 MG ORAL TABLET 1 tab po q pm, prn tamayo CYCLOBENZAPRINE HCL 92283151555 No Longer Active Jillina Frazell PARASITOLOGY TEACHER Active DIFLUCAN 100 MG ORAL TABLET 1 tablet by mouth x 1 FLUCONAZOLE 22995838604 No Longer Active Jillina Frazell PARASITOLOGY TEACHER Active BUSPIRONE HCL 7.5 MG ORAL TABLET 1 pill twice daily, for anxiety BUSPIRONE HCL 56463360236 No Longer Active Jillina Frazell PARASITOLOGY TEACHER Active FLAGYL 500 MG ORAL TABLET 1 tab po bid for 7 days METRONIDAZOLE 88815070731 No Longer Active Jillina Fraalessandral PARASITOLOGY TEACHER Active PREDNISONE 20 MG ORAL TABLET 2 po qd x 3 days PREDNISONE 63486261156 No Longer Active Twin Franks MD Active AMOXICILLIN 500 MG ORAL CAPSULE 1 po TID x 10 days AMOXICILLIN 96016700756 No Longer Active Twin Franks MD Active CIPRO 500 MG ORAL TABLET 1 tablet by mouth twice daily CIPROFLOXACIN HCL 52309693338 No Longer Active Lev Huang MD Active FIORICET 325-50-40 MG TAB 1 tablet by mouth four times daily as needed 05/27 [id number] 77767147946 No Longer Active Lev Huang MD Active FLAGYL 500 MG ORAL TABLET 1 pill by mouth twice daily METRONIDAZOLE 36907639534 No Longer Active Karen Cummins MD PhD Active PREDNISONE 20 MG ORAL TABLET 2 tabs daily for 4 days, 1 tab daily for 4 days, 1/2 tab daily for 4 days PREDNISONE 64335820925 No Longer Active Karen Cummins MD PhD Active AMOXICILLIN 500 MG ORAL CAPSULE 2 po BID x 10 days AMOXICILLIN 37349808435 No Longer Active Twin Franks MD Active IBUPROFEN 800 MG ORAL TABLET 1 tab every 8 hours as needed 03/15 IBUPROFEN 47536775476 No Longer Active Twin Franks MD Active FLONASE 50 MCG/ACT NASAL SUSPENSION 2 puffs in each nostril daily FLUTICASONE PROPIONATE 10097703990 No Longer Active Twin Franks MD Active AMOXICILLIN 500 MG ORAL CAPSULE 2 po BID x 10 days AMOXICILLIN 66065095764 No Longer Active Twin Franks MD Active AMOXICILLIN 500 MG ORAL CAPSULE 2 po BID x 10 days AMOXICILLIN 57689440297 No Longer Active Twin Franks MD Active FLONASE 50 MCG/ACT NASAL SUSPENSION 2 puffs in each nostril daily FLONASE 50 MCG/ACT NASAL SUSPENSION 2514496 FLUTICASONE PROPIONATE Inactive IBUPROFEN 800 MG ORAL TABLET 1 tab every 8 hours as needed 03/15 IBUPROFEN 800 MG ORAL TABLET 370389 IBUPROFEN Inactive PREDNISONE 20 MG ORAL TABLET 2 tabs daily for 4 days, 1 tab daily for 4 days, 1/2 tab daily for 4 days PREDNISONE 20 MG ORAL TABLET 546519 PREDNISONE Inactive FIORICET 325-50-40 MG TAB 1 tablet by mouth four times daily as needed 05/27 FIORICET 325-50-40 MG TAB [id number] Inactive FLAGYL 500 MG ORAL TABLET 1 tab po bid for 7 days FLAGYL 500 MG ORAL TABLET 627803 METRONIDAZOLE Inactive BUSPIRONE HCL 7.5 MG ORAL TABLET 1 pill twice daily, for anxiety BUSPIRONE HCL 7.5 MG ORAL TABLET 059621 BUSPIRONE HCL Inactive DIFLUCAN 100 MG ORAL TABLET 1 tablet by mouth x 1 DIFLUCAN 100 MG ORAL TABLET 385307 FLUCONAZOLE Inactive CYCLOBENZAPRINE HCL 10 MG ORAL TABLET 1 tab po q pm, prn tamayo 10/11 CYCLOBENZAPRINE HCL 10 MG ORAL TABLET 691035 CYCLOBENZAPRINE HCL Inactive TRAMADOL HCL 50 MG ORAL TABLET 1-2 tablets every 6 hours as needed for pain TRAMADOL HCL 50 MG ORAL TABLET 144415 TRAMADOL HCL Inactive CIPRO 500 MG ORAL TABLET 1 tablet by mouth twice daily CIPRO 500 MG ORAL TABLET 309974 CIPROFLOXACIN HCL Inactive PHENAZOPYRIDINE HCL 100 MG ORAL TABLET 1 tab po bid PHENAZOPYRIDINE HCL 100 MG ORAL TABLET 6993059 PHENAZOPYRIDINE HCL Inactive AMOXICILLIN 500 MG ORAL CAPSULE 2 po BID x 10 days AMOXICILLIN 500 MG ORAL CAPSULE 406185 AMOXICILLIN Inactive AMOXICILLIN 500 MG ORAL CAPSULE 2 po BID x 10 days AMOXICILLIN 500 MG ORAL CAPSULE 347958 AMOXICILLIN Inactive AMOXICILLIN 500 MG ORAL CAPSULE 2 po BID x 10 days AMOXICILLIN 500 MG ORAL CAPSULE 927479 AMOXICILLIN Inactive FLAGYL 500 MG ORAL TABLET 1 pill by mouth twice daily FLAGYL 500 MG ORAL TABLET 738758 METRONIDAZOLE Inactive CIPRO 500 MG ORAL TABLET 1 tablet by mouth twice daily CIPRO 500 MG ORAL TABLET 596551 CIPROFLOXACIN HCL Inactive AMOXICILLIN 500 MG ORAL CAPSULE 1 po TID x 10 days AMOXICILLIN 500 MG ORAL CAPSULE 419088 AMOXICILLIN Inactive PREDNISONE 20 MG ORAL TABLET 2 po qd x 3 days PREDNISONE 20 MG ORAL TABLET 048164 PREDNISONE Inactive BACTRIM DS 800-160 MG ORAL TABLET 1 po BID x 7 days BACTRIM DS 800-160 MG ORAL TABLET 934325 SULFAMETHOXAZOLE-TRIMETHOPRIM Inactive Vital Signs Date Name Value [...] % 13.0-18.0 platelet count 229 10^3/MM^3 10*3/mm3 569-041 1593/08/16 erythrocyte (RBC) count 4.46 10^6/MM^3 10*6/mm3 3.80-5.80 [...] bilirubin, urine Negative Negative Lab Report: Chlamydia/GC APTIMA/65896 - Lab chlamydia DNA probe NOT DETECTED NOT DETECTED chlamydia DNA probe NOT DETECTED NOT DETECTED chlamydia DNA probe NOT DETECTED NOT DETECTED Lab Report: Chlamydia/GC APTIMA/69971 - Microbiology Neisseria gonorrhoeae DNA probe NOT DETECTED NOT DETECTED Neisseria gonorrhoeae DNA probe NOT DETECTED NOT DETECTED Neisseria gonorrhoeae DNA probe NOT DETECTED NOT DETECTED Lab Report: Comp. Metabolic Panel, Free Thyroxine (L), Thyroid Stimulati ... - Chemistry urea nitrogen, blood 6 mg/dL 7-18 sodium, serum 140 mmol/L 511-931 3800/08/16 creatinine, serum 0.71 mg/dL 0.60-1.30 alanine aminotransferase (SGPT), serum 28 U/L 12-78 aspartate aminotransferase (SGOT), serum 19 U/L 15-37 calcium, serum 9.0 mg/dL 8.5-10.1 bilirubin, serum, total 0.50 mg/dL 0.00-1.00 thyroxine, serum, free 0.92 ng/dL 0.59-1.17 TSH 0.77 m[iU]/mL 0.36-3.74 carbon dioxide, venous blood 32.2 mmol/L 21.0-32.0 potassium, serum 4.5 mmol/L 3.5-5.2 chloride, serum 106 mmol/L 98-107 blood glucose 85 mg/dL 65-110 Lab Report: UADIP W/MICRO, AUTO - Urinalysis [...] 5.0-8.5 Encounters Code Encounter Date Provider Facility CPT-87736 Level 3 Est. Patient 11:19:27 RESEARCH AND DEVELOPMENT SCIENTIST Sasha Grande [facility] CPT-55339 Level 3 Est. Patient 16:51:52 CDT Twin Franks MD [facility] CPT-08688 Level 3 Est. Patient 10:46:44 CDT Sasha Grande [facility] CPT-09062 Level 3 Est. Patient 11:22:49 CDT Sasha Graned [facility] CPT-27013 Level 4 Est. Patient 16:40:46 CDT Twin Franks MD [facility] CPT-69332 Level 3 Est. Patient 14:26:47 CDT Lev Huang MD [facility] CPT-90831 Level 3 Est. Patient 15:32:55 CDT Karen Cummins MD PhD [facility] CPT-34154 Level 3 Est. Patient 16:58:58 CDT Twin Franks MD [facility] CPT-48228 Level 3 Est. Patient 15:10:24 CDT Twin Franks MD [facility] CPT-62122 Level 3 Est. Patient 11:09:46 RESEARCH AND DEVELOPMENT SCIENTIST Twin Franks MD [facility] CPT-50369 Level 3 Est. Patient 16:59:32 RESEARCH AND DEVELOPMENT SCIENTIST Twin Franks MD [facility] Procedures Code Procedure Name Date Entry Date Standard Description CPT-98241 Spec Collection and Handling Fee 11:23:53 RESEARCH AND DEVELOPMENT SCIENTIST CPT-12403 IM or SQ Injection 12:06:22 CDT CPT-J1885 Toradol 30 mg (Ketorolac) 11:30:17 CDT CPT-64910 Spec Collection and Handling Fee 16:40:47 CDT CPT-J1055 Depo Provera 150 mg (Medroxyprogesterone) 09:01:32 CDT CPT-61328 Abx/Therapy Injection 09:01:32 CDT CPT-68393 Abx/Therapy Injection 11:43:35 CDT CPT-J1055 Depo Provera 150 mg (Medroxyprogesterone) 15:22:54 CDT CPT-44928 Spec Collection and Handling Fee 15:10:24 CDT
--- OUTSIDE RECORDS SUMMARY | 2017-09-07 12:15 | XMS REPORT | Clinical Summary ---
Author Author Admin, MARY Organization [facility] Address Unknown Phone Unavailable Allergies, Adverse [...] tablet by mouth twice daily CIPROFLOXACIN HCL 95003000286 Active Lev Huang MD Active FIORICET 325-50-40 MG TAB 1 tablet by mouth four times daily as needed 05/27 [id number] 42963295418 No Longer Active Lev Huang MD Active FLAGYL 500 MG TABS 1 pill by mouth twice daily METRONIDAZOLE 87265413493 No Longer Active Karen Cummins MD PhD Active PREDNISONE 20 MG TAB 2 tabs daily for 4 days, 1 tab daily for 4 days, 1/2 tab daily for 4 days PREDNISONE 34883724895 No Longer Active Karne Cummins MD PhD Active AMOXICILLIN 500 MG CAPS 2 po BID x 10 days AMOXICILLIN 24314016864 No Longer Active Twin Franks MD Active IBUPROFEN 800 MG TABS 1 tab every 8 hours as needed IBUPROFEN 51967948457 No Longer Active Twin Franks MD Active FLONASE 50 MCG/ACT SUSP 2 puffs in each nostril daily FLUTICASONE PROPIONATE 65456308877 No Longer Active Twin Franks MD Active AMOXICILLIN 500 MG CAPS 2 po BID x 10 days AMOXICILLIN 69123544576 No Longer Active Twin Franks MD Active AMOXICILLIN 500 MG CAPS 2 po BID x 10 days AMOXICILLIN 17398074940 No Longer Active Twin Franks MD Active FLONASE 50 MCG/ACT SUSP 2 puffs in each nostril daily FLONASE 50 MCG/ACT SUSP FLUTICASONE PROPIONATE Inactive IBUPROFEN 800 MG TABS 1 tab every 8 hours as needed IBUPROFEN 800 MG TABS 419207 IBUPROFEN Inactive PREDNISONE 20 MG TAB 2 tabs daily for 4 days, 1 tab daily for 4 days, 1/2 tab daily for 4 days PREDNISONE 20 MG TAB 459958 PREDNISONE Inactive FIORICET 325-50-40 MG TAB 1 tablet by mouth four times daily as needed 05/27 FIORICET 325-50-40 MG TAB [id number] Inactive AMOXICILLIN 500 MG CAPS 2 po BID x 10 days AMOXICILLIN 500 MG CAPS 478413 AMOXICILLIN Inactive AMOXICILLIN 500 MG CAPS 2 po BID x 10 days AMOXICILLIN 500 MG CAPS 275338 AMOXICILLIN Inactive AMOXICILLIN 500 MG CAPS 2 po BID x 10 days AMOXICILLIN 500 MG CAPS 600729 AMOXICILLIN Inactive FLAGYL 500 MG TABS 1 pill by mouth twice daily FLAGYL 500 MG TABS 470261 METRONIDAZOLE Inactive Vital Signs Date Name Value [...] Measured Encounters Code Encounter Date Provider Facility CPT-30458 Level 3 Est. Patient 14:26:47 CDT Lev Huang MD [facility] CPT-06834 Level 3 Est. Patient 15:32:55 CDT Karen Cummins MD PhD [facility] CPT-26842 Level 3 Est. Patient 16:58:58 CDT Twin Franks MD [facility] CPT-95435 Level 3 Est. Patient 15:10:24 CDT Twin Franks MD [facility] CPT-17406 Level 3 Est. 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 Patient 16:59:32 ARTIFICIAL BREEDING TECHNICIAN Twin Franks MD [facility] Procedures Code Procedure Name Date Entry Date Standard Description CPT-J1055 Depo Provera 150 mg (Medroxyprogesterone) 09:01:32 CDT CPT-70845 Abx/Therapy Injection 09:01:32 CDT CPT-02523 Abx/Therapy Injection 11:43:35 CDT CPT-J1055 Depo Provera 150 mg (Medroxyprogesterone) 15:22:54 CDT CPT-16242 Spec Collection and Handling Fee 15:10:24 CDT
--- OUTSIDE RECORDS SUMMARY | 2017-09-07 12:16 | XMS REPORT | Clinical Summary ---
Author Author Admin, MARY Organization [facility] Address Unknown Phone Unavailable Allergies, Adverse Reactions, [...] Headache Drug abuse 305.90 Active Jillina Frazell PSYCHOLOGY PHYSICIAN Other, mixed, or unspecified drug abuse, unspecified use Anxiety 300.00 Active Jillina Frazell PSYCHOLOGY PHYSICIAN Anxiety state, unspecified DYSURIA 788.1 Resolved Twin [...] 1 po BID x 7 days SULFAMETHOXAZOLE-TRIMETHOPRIM 00594069288 Active Twin Franks MD Active CELEXA 20 MG ORAL TABLET Take one tab po daily CITALOPRAM HYDROBROMIDE 68415558408 Active Twin Franks MD Active PHENAZOPYRIDINE HCL 100 MG ORAL TABS 1 tab po bid PHENAZOPYRIDINE HCL 96183169072 No Longer Active Twin Franks MD Active CIPRO 500 MG TAB 1 tablet by mouth twice daily CIPROFLOXACIN HCL 88322802281 No Longer Active wTin Franks MD Active TRAMADOL HCL 50 MG TABS 1-2 tablets every 6 hours as needed for pain TRAMADOL HCL 28505625611 No Longer Active Jillina Frazell PSYCHOLOGY PHYSICIAN Active CYCLOBENZAPRINE HCL 10 MG TABS 1 tab po q pm, prn tamayo CYCLOBENZAPRINE HCL 66729076883 No Longer Active Jillina Frazell PSYCHOLOGY PHYSICIAN Active DIFLUCAN 100 MG TAB 1 tablet by mouth x 1 FLUCONAZOLE 15835135413 No Longer Active Jillina Frazell PSYCHOLOGY PHYSICIAN Active BUSPIRONE HCL 7.5 MG ORAL TABS 1 pill twice daily, for anxiety BUSPIRONE HCL 32475452309 No Longer Active Jillina Frazell PSYCHOLOGY PHYSICIAN Active FLAGYL 500 MG ORAL TABS 1 tab po bid for 7 days METRONIDAZOLE 91231226497 No Longer Active Jillina Fraalessandral PSYCHOLOGY PHYSICIAN Active PREDNISONE 20 MG ORAL TABS 2 po qd x 3 days PREDNISONE 48178325463 No Longer Active Twin Franks MD Active AMOXICILLIN 500 MG ORAL CAPS 1 po TID x 10 days AMOXICILLIN 76803890765 No Longer Active Twin Franks MD Active CIPRO 500 MG TAB 1 tablet by mouth twice daily CIPROFLOXACIN HCL 46958305403 No Longer Active Lev Huang MD Active FIORICET 325-50-40 MG TAB 1 tablet by mouth four times daily as needed 05/27 [id number] 23631233046 No Longer Active Lev Huang MD Active FLAGYL 500 MG TABS 1 pill by mouth twice daily METRONIDAZOLE 73788935515 No Longer Active Karen Cummins MD PhD Active PREDNISONE 20 MG TAB 2 tabs daily for 4 days, 1 tab daily for 4 days, 1/2 tab daily for 4 days PREDNISONE 58806091541 No Longer Active Karen Cummins MD PhD Active AMOXICILLIN 500 MG CAPS 2 po BID x 10 days AMOXICILLIN 47808815424 No Longer Active Twin Franks MD Active IBUPROFEN 800 MG TABS 1 tab every 8 hours as needed IBUPROFEN 69443400268 No Longer Active Twin Franks MD Active FLONASE 50 MCG/ACT SUSP 2 puffs in each nostril daily FLUTICASONE PROPIONATE 47844336563 No Longer Active Twin Franks MD Active AMOXICILLIN 500 MG CAPS 2 po BID x 10 days AMOXICILLIN 75770379164 No Longer Active Twin Franks MD Active AMOXICILLIN 500 MG CAPS 2 po BID x 10 days AMOXICILLIN 60357858301 No Longer Active Twin Franks MD Active FLONASE 50 MCG/ACT SUSP 2 puffs in each nostril daily FLONASE 50 MCG/ACT SUSP 3319974 FLUTICASONE PROPIONATE Inactive IBUPROFEN 800 MG TABS 1 tab every 8 hours as needed IBUPROFEN 800 MG TABS 023163 IBUPROFEN Inactive PREDNISONE 20 MG TAB 2 tabs daily for 4 days, 1 tab daily for 4 days, 1/2 tab daily for 4 days PREDNISONE 20 MG TAB 712844 PREDNISONE Inactive FIORICET 325-50-40 MG TAB 1 tablet by mouth four times daily as needed 05/27 FIORICET 325-50-40 MG TAB [id number] Inactive FLAGYL 500 MG ORAL TABS 1 tab po bid for 7 days FLAGYL 500 MG ORAL TABS 263598 METRONIDAZOLE Inactive BUSPIRONE HCL 7.5 MG ORAL TABS 1 pill twice daily, for anxiety BUSPIRONE HCL 7.5 MG ORAL TABS 468243 BUSPIRONE HCL Inactive DIFLUCAN 100 MG TAB 1 tablet by mouth x 1 DIFLUCAN 100 MG TAB 313159 FLUCONAZOLE Inactive CYCLOBENZAPRINE HCL 10 MG TABS 1 tab po q pm, prn tamayo CYCLOBENZAPRINE HCL 10 MG TABS 116433 CYCLOBENZAPRINE HCL Inactive TRAMADOL HCL 50 MG TABS 1-2 tablets every 6 hours as needed for pain TRAMADOL HCL 50 MG TABS 655326 TRAMADOL HCL Inactive CIPRO 500 MG TAB 1 tablet by mouth twice daily CIPRO 500 MG TAB 155364 CIPROFLOXACIN HCL Inactive PHENAZOPYRIDINE HCL 100 MG ORAL TABS 1 tab po bid PHENAZOPYRIDINE HCL 100 MG ORAL TABS 6583034 PHENAZOPYRIDINE HCL Inactive AMOXICILLIN 500 MG CAPS 2 po BID x 10 days AMOXICILLIN 500 MG CAPS 211858 AMOXICILLIN Inactive AMOXICILLIN 500 MG CAPS 2 po BID x 10 days AMOXICILLIN 500 MG CAPS 349621 AMOXICILLIN Inactive AMOXICILLIN 500 MG CAPS 2 po BID x 10 days AMOXICILLIN 500 MG CAPS 683526 AMOXICILLIN Inactive FLAGYL 500 MG TABS 1 pill by mouth twice daily FLAGYL 500 MG TABS 922125 METRONIDAZOLE Inactive CIPRO 500 MG TAB 1 tablet by mouth twice daily CIPRO 500 MG TAB 854266 CIPROFLOXACIN HCL Inactive AMOXICILLIN 500 MG ORAL CAPS 1 po TID x 10 days AMOXICILLIN 500 MG ORAL CAPS 552331 AMOXICILLIN Inactive PREDNISONE 20 MG ORAL TABS 2 po qd x 3 days PREDNISONE 20 MG ORAL TABS 068028 PREDNISONE Inactive Vital Signs Date Name Value [...] urine, semiquantitative Negative Negative Lab Report: Chlamydia/GC APTIMA/42912 - Lab chlamydia DNA probe NOT DETECTED NOT DETECTED chlamydia DNA probe NOT DETECTED NOT DETECTED Lab Report: Chlamydia/GC APTIMA/27712 - Microbiology Neisseria gonorrhoeae DNA probe NOT DETECTED NOT DETECTED Neisseria gonorrhoeae DNA probe NOT DETECTED NOT DETECTED Lab Report: Comp. Metabolic Panel, Free Thyroxine (L), Thyroid Stimulati ... - Chemistry sodium, serum 140 mmol/L 121-750 0291/08/16 carbon dioxide, venous blood 32.2 mmol/L 21.0-32.0 [...] 0.36-3.74 Encounters Code Encounter Date Provider Facility CPT-24788 Level 3 Est. Patient 16:51:52 CDT Twin Franks MD [facility] CPT-31981 Level 3 Est. Patient 10:46:44 CDT Sasha Grande [facility] CPT-42714 Level 3 Est. Patient 11:22:49 CDT Sasha Grande [facility] CPT-67618 Level 4 Est. Patient 16:40:46 CDT Twin Franks MD [facility] CPT-55840 Level 3 Est. Patient 14:26:47 CDT Lev Huang MD [facility] CPT-92276 Level 3 Est. Patient 15:32:55 CDT Karen Cummins MD PhD [facility] CPT-41451 Level 3 Est. Patient 16:58:58 CDT Twin Franks MD [facility] CPT-45224 Level 3 Est. Patient 15:10:24 CDT Twin Franks MD [facility] CPT-26745 Level 3 Est. Patient 11:09:46 ACTUARIAL SCIENCE TEACHER Twin Franks MD [facility] CPT-12903 Level 3 Est. Patient 16:59:32 ACTUARIAL SCIENCE TEACHER Twin Franks MD [facility] Procedures Code Procedure Name Date Entry Date Standard Description CPT-43791 IM or SQ Injection 12:06:22 CDT CPT-J1885 Toradol 30 mg (Ketorolac) 11:30:17 CDT CPT-49190 Spec Collection and Handling Fee 16:40:47 CDT CPT-J1055 Depo Provera 150 mg (Medroxyprogesterone) 09:01:32 CDT CPT-46470 Abx/Therapy Injection 09:01:32 CDT CPT-03091 Abx/Therapy Injection 11:43:35 CDT CPT-J1055 Depo Provera 150 mg (Medroxyprogesterone) 15:22:54 CDT CPT-36697 Spec Collection and Handling Fee 15:10:24 CDT
--- OUTSIDE RECORDS SUMMARY | 2017-09-07 12:16 | XMS REPORT | Clinical Summary ---
Author Author Admin, MARY Organization [facility] Address Unknown Phone Unavailable Allergies, Adverse Reactions, [...] pill twice daily, for anxiety BUSPIRONE HCL 35416231723 Active Jillina Harjinder VENEGASN Active DIFLUCAN 100 MG TAB 1 tablet by mouth x 1 FLUCONAZOLE 85332915456 Active Jillina Fraalessandral HOTEL SERVICES SUPERVISOR Active CYCLOBENZAPRINE HCL 10 MG TABS 1 tab po q pm, prn tamayo CYCLOBENZAPRINE HCL 65064358560 Active Jillina Frazell HOTEL SERVICES SUPERVISOR Active TRAMADOL HCL 50 MG TABS 1-2 tablets every 6 hours as needed for pain TRAMADOL HCL 02862530352 Active Jillina Fraalessandral HOTEL SERVICES SUPERVISOR Active FLAGYL 500 MG ORAL TABS 1 tab po bid for 7 days METRONIDAZOLE 34176613541 No Longer Active Geraldllina Harjinder GUERRERO Active PREDNISONE 20 MG ORAL TABS 2 po qd x 3 days PREDNISONE 06779025882 No Longer Active Twin Franks MD Active AMOXICILLIN 500 MG ORAL CAPS 1 po TID x 10 days AMOXICILLIN 09095305942 No Longer Active Twin Franks MD Active CIPRO 500 MG TAB 1 tablet by mouth twice daily CIPROFLOXACIN HCL 79265275091 No Longer Active Lev Huang MD Active FIORICET 325-50-40 MG TAB 1 tablet by mouth four times daily as needed 05/27 [id number] 50679036610 No Longer Active Lev Huang MD Active FLAGYL 500 MG TABS 1 pill by mouth twice daily METRONIDAZOLE 65161910606 No Longer Active Karen Cummins MD PhD Active PREDNISONE 20 MG TAB 2 tabs daily for 4 days, 1 tab daily for 4 days, 1/2 tab daily for 4 days PREDNISONE 59271182009 No Longer Active Karen Cummins MD PhD Active AMOXICILLIN 500 MG CAPS 2 po BID x 10 days AMOXICILLIN 97525072704 No Longer Active Twin Franks MD Active IBUPROFEN 800 MG TABS 1 tab every 8 hours as needed IBUPROFEN 34282477724 No Longer Active Twin Franks MD Active FLONASE 50 MCG/ACT SUSP 2 puffs in each nostril daily FLUTICASONE PROPIONATE 35459106732 No Longer Active Twin Franks MD Active AMOXICILLIN 500 MG CAPS 2 po BID x 10 days AMOXICILLIN 41776877457 No Longer Active Twin Franks MD Active AMOXICILLIN 500 MG CAPS 2 po BID x 10 days AMOXICILLIN 31625618009 No Longer Active Twin Franks MD Active FLONASE 50 MCG/ACT SUSP 2 puffs in each nostril daily FLONASE 50 MCG/ACT SUSP 5084915 FLUTICASONE PROPIONATE Inactive IBUPROFEN 800 MG TABS 1 tab every 8 hours as needed IBUPROFEN 800 MG TABS 628072 IBUPROFEN Inactive PREDNISONE 20 MG TAB 2 tabs daily for 4 days, 1 tab daily for 4 days, 1/2 tab daily for 4 days PREDNISONE 20 MG TAB 025534 PREDNISONE Inactive FIORICET 325-50-40 MG TAB 1 tablet by mouth four times daily as needed 05/27 FIORICET 325-50-40 MG TAB [id number] Inactive FLAGYL 500 MG ORAL TABS 1 tab po bid for 7 days FLAGYL 500 MG ORAL TABS 593316 METRONIDAZOLE Inactive AMOXICILLIN 500 MG CAPS 2 po BID x 10 days AMOXICILLIN 500 MG CAPS 443954 AMOXICILLIN Inactive AMOXICILLIN 500 MG CAPS 2 po BID x 10 days AMOXICILLIN 500 MG CAPS 409657 AMOXICILLIN Inactive AMOXICILLIN 500 MG CAPS 2 po BID x 10 days AMOXICILLIN 500 MG CAPS 306110 AMOXICILLIN Inactive FLAGYL 500 MG TABS 1 pill by mouth twice daily FLAGYL 500 MG TABS 705226 METRONIDAZOLE Inactive CIPRO 500 MG TAB 1 tablet by mouth twice daily CIPRO 500 MG TAB 659321 CIPROFLOXACIN HCL Inactive AMOXICILLIN 500 MG ORAL CAPS 1 po TID x 10 days AMOXICILLIN 500 MG ORAL CAPS 929781 AMOXICILLIN Inactive PREDNISONE 20 MG ORAL TABS 2 po qd x 3 days PREDNISONE 20 MG ORAL TABS 458664 PREDNISONE Inactive Vital Signs Date Name Value [...] urine, semiquantitative Negative Negative Lab Report: Chlamydia/GC APTIMA/97484 - Lab chlamydia DNA probe NOT DETECTED NOT DETECTED Lab Report: Chlamydia/GC APTIMA/22115 - Microbiology Neisseria gonorrhoeae DNA probe NOT DETECTED NOT DETECTED Lab Report: Comp. Metabolic Panel, Free Thyroxine (L), Thyroid Stimulati ... - Chemistry sodium, serum 140 mmol/L 722-155 3153/08/16 carbon dioxide, venous blood 32.2 mmol/L 21.0-32.0 [...] 0.36-3.74 Encounters Code Encounter Date Provider Facility CPT-87659 Level 3 Est. Patient 11:22:49 CDT Sasha Grande [facility] CPT-24415 Level 4 Est. Patient 16:40:46 CDT Twin Franks MD [facility] CPT-02583 Level 3 Est. Patient 14:26:47 CDT Lev Huang MD [facility] CPT-87809 Level 3 Est. Patient 15:32:55 CDT Karen Cummins MD PhD [facility] CPT-87584 Level 3 Est. Patient 16:58:58 CDT Twin Franks MD [facility] CPT-47108 Level 3 Est. Patient 15:10:24 CDT Twin Franks MD [facility] CPT-11929 Level 3 Est. Patient 11:09:46 INTERNATIONAL REPRESENTATIVE Twin Franks MD [facility] CPT-32821 Level 3 Est. Patient 16:59:32 INTERNATIONAL REPRESENTATIVE Twin Franks MD [facility] Procedures Code Procedure Name Date Entry Date Standard Description CPT-84208 IM or SQ Injection 12:06:22 CDT CPT-J1885 Toradol 30 mg (Ketorolac) 11:30:17 CDT CPT-85255 Spec Collection and Handling Fee 16:40:47 CDT CPT-J1055 Depo Provera 150 mg (Medroxyprogesterone) 09:01:32 CDT CPT-98404 Abx/Therapy Injection 09:01:32 CDT CPT-42298 Abx/Therapy Injection 11:43:35 CDT CPT-J1055 Depo Provera 150 mg (Medroxyprogesterone) 15:22:54 CDT CPT-53709 Spec Collection and Handling Fee 15:10:24 CDT
--- OUTSIDE RECORDS SUMMARY | 2017-09-07 12:16 | XMS REPORT | Clinical Summary ---
Author Author Admin, MARY Organization [facility] Address Unknown Phone Unavailable Allergies, Adverse [...] MD PhD Tension headache Vaginitis 616.10 Resolved Tiwn Franks MD Vaginitis and vulvovaginitis, unspecified UTI 599.0 Resolved Twin Franks MD Urinary tract infection, site not specified Sinusitis, acute 461.9 Resolved Twin Franks MD Acute sinusitis, unspecified Vaginal discharge 623.5 Resolved Twin Franks MD Leukorrhea, not specified as infective Headache 784.0 Active Jillina Harjinder GUERRERO Headache Drug abuse 305.90 Active Jillina Frazell MANAGER EXPORT Other, mixed, or unspecified drug abuse, unspecified use Anxiety 300.00 Active Jillina Frazell MANAGER EXPORT Anxiety state, unspecified DYSURIA 788.1 Resolved Twin [...] Status Provider Patient Instruction FLAGYL 500 MG TAB 4 tabs (2gms) po x1. do not mix with ETOH METRONIDAZOLE 00531920661 Active Sasha Grande APRN Active MACROBID 100 MG CAP 1 cap by mouth twice daily NITROFURANTOIN MONOHYD MACRO 25283924593 Active Sasha Grande APRN Active BACTRIM DS 800-160 MG ORAL TABS 1 po BID x 7 days SULFAMETHOXAZOLE-TRIMETHOPRIM 41198954218 No Longer Active Twin Franks MD Active CELEXA 20 MG ORAL TABLET Take one tab po daily CITALOPRAM HYDROBROMIDE 79266761992 Active Twin Franks MD Active PHENAZOPYRIDINE HCL 100 MG ORAL TABS 1 tab po bid PHENAZOPYRIDINE HCL 40265846075 No Longer Active Twin Franks MD Active CIPRO 500 MG TAB 1 tablet by mouth twice daily CIPROFLOXACIN HCL 01588113581 No Longer Active Twin Franks MD Active TRAMADOL HCL 50 MG TABS 1-2 tablets every 6 hours as needed for pain TRAMADOL HCL 75974884608 No Longer Active Jillina Frazell MANAGER EXPORT Active CYCLOBENZAPRINE HCL 10 MG TABS 1 tab po q pm, prn tamayo CYCLOBENZAPRINE HCL 28227862398 No Longer Active Jillina Frazell MANAGER EXPORT Active DIFLUCAN 100 MG TAB 1 tablet by mouth x 1 FLUCONAZOLE 24727206159 No Longer Active Jillina Frazell MANAGER EXPORT Active BUSPIRONE HCL 7.5 MG ORAL TABS 1 pill twice daily, for anxiety BUSPIRONE HCL 12897484255 No Longer Active Jillina Frazell MANAGER EXPORT Active FLAGYL 500 MG ORAL TABS 1 tab po bid for 7 days METRONIDAZOLE 72766549161 No Longer Active Jillina Frazell MANAGER EXPORT Active PREDNISONE 20 MG ORAL TABS 2 po qd x 3 days PREDNISONE 85657209687 No Longer Active Twin Franks MD Active AMOXICILLIN 500 MG ORAL CAPS 1 po TID x 10 days AMOXICILLIN 28297480372 No Longer Active Twin Franks MD Active CIPRO 500 MG TAB 1 tablet by mouth twice daily CIPROFLOXACIN HCL 25242556422 No Longer Active Lev Huang MD Active FIORICET 325-50-40 MG TAB 1 tablet by mouth four times daily as needed 05/27 [id number] 78948200224 No Longer Active Lev Huang MD Active FLAGYL 500 MG TABS 1 pill by mouth twice daily METRONIDAZOLE 70931266326 No Longer Active Karen Cummins MD PhD Active PREDNISONE 20 MG TAB 2 tabs daily for 4 days, 1 tab daily for 4 days, 1/2 tab daily for 4 days PREDNISONE 88395848739 No Longer Active Karen Cummins MD PhD Active AMOXICILLIN 500 MG CAPS 2 po BID x 10 days AMOXICILLIN 55192051750 No Longer Active Twin Franks MD Active IBUPROFEN 800 MG TABS 1 tab every 8 hours as needed IBUPROFEN 65996965554 No Longer Active Twin Franks MD Active FLONASE 50 MCG/ACT SUSP 2 puffs in each nostril daily FLUTICASONE PROPIONATE 37742061193 No Longer Active Twin Franks MD Active AMOXICILLIN 500 MG CAPS 2 po BID x 10 days AMOXICILLIN 49318617671 No Longer Active Twin Franks MD Active AMOXICILLIN 500 MG CAPS 2 po BID x 10 days AMOXICILLIN 81585096072 No Longer Active Twin Franks MD Active AMOXICILLIN 500 MG CAPS 2 po BID x 10 days AMOXICILLIN 500 MG CAPS 264503 AMOXICILLIN Inactive AMOXICILLIN 500 MG CAPS 2 po BID x 10 days AMOXICILLIN 500 MG CAPS 709900 AMOXICILLIN Inactive AMOXICILLIN 500 MG CAPS 2 po BID x 10 days AMOXICILLIN 500 MG CAPS 053099 AMOXICILLIN Inactive AMOXICILLIN 500 MG ORAL CAPS 1 po TID x 10 days AMOXICILLIN 500 MG ORAL CAPS 233521 AMOXICILLIN Inactive BACTRIM DS 800-160 MG ORAL TABS 1 po BID x 7 days BACTRIM DS 800-160 MG ORAL TABS 997243 SULFAMETHOXAZOLE-TRIMETHOPRIM Inactive CIPRO 500 MG TAB 1 tablet by mouth twice daily CIPRO 500 MG TAB 171331 CIPROFLOXACIN HCL Inactive CIPRO 500 MG TAB 1 tablet by mouth twice daily CIPRO 500 MG TAB 535125 CIPROFLOXACIN HCL Inactive CYCLOBENZAPRINE HCL 10 MG TABS 1 tab po q pm, prn tamayo CYCLOBENZAPRINE HCL 10 MG TABS 072723 CYCLOBENZAPRINE HCL Inactive DIFLUCAN 100 MG TAB 1 tablet by mouth x 1 DIFLUCAN 100 MG TAB 075648 FLUCONAZOLE Inactive FIORICET 325-50-40 MG TAB 1 tablet by mouth four times daily as needed 05/27 FIORICET 325-50-40 MG TAB [id number] Inactive FLAGYL 500 MG ORAL TABS 1 tab po bid for 7 days FLAGYL 500 MG ORAL TABS 189648 METRONIDAZOLE Inactive FLAGYL 500 MG TABS 1 pill by mouth twice daily FLAGYL 500 MG TABS 481455 METRONIDAZOLE Inactive IBUPROFEN 800 MG TABS 1 tab every 8 hours as needed IBUPROFEN 800 MG TABS 506718 IBUPROFEN Inactive PHENAZOPYRIDINE HCL 100 MG ORAL TABS 1 tab po bid PHENAZOPYRIDINE HCL 100 MG ORAL TABS 2951167 PHENAZOPYRIDINE HCL Inactive PREDNISONE 20 MG ORAL TABS 2 po qd x 3 days PREDNISONE 20 MG ORAL TABS 440943 PREDNISONE Inactive PREDNISONE 20 MG TAB 2 tabs daily for 4 days, 1 tab daily for 4 days, 1/2 tab daily for 4 days PREDNISONE 20 MG TAB 182846 PREDNISONE Inactive TRAMADOL HCL 50 MG TABS 1-2 tablets every 6 hours as needed for pain TRAMADOL HCL 50 MG TABS 554016 TRAMADOL HCL Inactive BUSPIRONE HCL 7.5 MG ORAL TABS 1 pill twice daily, for anxiety BUSPIRONE HCL 7.5 MG ORAL TABS 937317 BUSPIRONE HCL Inactive FLONASE 50 MCG/ACT SUSP 2 puffs in each nostril daily FLONASE 50 MCG/ACT SUSP 0860258 FLUTICASONE PROPIONATE Inactive Vital Signs Date Name Value Unit [...] urine, semiquantitative Negative Negative Lab Report: Chlamydia/GC APTIMA/27690 - Lab chlamydia DNA probe NOT DETECTED NOT DETECTED chlamydia DNA probe NOT DETECTED NOT DETECTED Lab Report: Chlamydia/GC APTIMA/63781 - Microbiology Neisseria gonorrhoeae DNA probe NOT DETECTED NOT DETECTED Neisseria gonorrhoeae DNA probe NOT DETECTED NOT DETECTED Lab Report: Comp. Metabolic Panel, Free Thyroxine (L), Thyroid Stimulati ... - Chemistry sodium, serum 140 mmol/L 534-532 2425/08/16 carbon dioxide, venous blood 32.2 mmol/L 21.0-32.0 [...] 5.0-8.5 Encounters Code Encounter Date Provider Facility CPT-25320 Level 3 Est. Patient 11:19:27 STRUCTURAL MANAGER Sasha Grande [facility] CPT-42222 Level 3 Est. Patient 16:51:52 CDT Twin Franks MD [facility] CPT-75473 Level 3 Est. Patient 10:46:44 CDT Sasha Grande [facility] CPT-75427 Level 3 Est. Patient 11:22:49 CDT Sasha Grande [facility] CPT-79181 Level 4 Est. Patient 16:40:46 CDT Twin Franks MD [facility] CPT-61167 Level 3 Est. Patient 14:26:47 CDT Lev Huang MD [facility] CPT-77967 Level 3 Est. Patient 15:32:55 CDT Karen Cummins MD, PhD [facility] CPT-90698 Level 3 Est. Patient 16:58:58 CDT Twin Franks MD [facility] CPT-37783 Level 3 Est. Patient 15:10:24 CDT Twin Franks MD [facility] CPT-73383 Level 3 Est. Patient 11:09:46 STRUCTURAL MANAGER Twin Franks MD [facility] CPT-72089 Level 3 Est. Patient 16:59:32 STRUCTURAL MANAGER Twin Franks MD [facility] Procedures Code Procedure Name Date Entry Date Standard Description CPT-30587 Spec Collection and Handling Fee 11:23:53 STRUCTURAL MANAGER CPT-47770 IM or SQ Injection 12:06:22 CDT CPT-J1885 Toradol 30 mg (Ketorolac) 11:30:17 CDT CPT-61958 Spec Collection and Handling Fee 16:40:47 CDT CPT-J1055 Depo Provera 150 mg (Medroxyprogesterone) 09:01:32 CDT CPT-93268 Abx/Therapy Injection 09:01:32 CDT CPT-95819 Abx/Therapy Injection 11:43:35 CDT CPT-J1055 Depo Provera 150 mg (Medroxyprogesterone) 15:22:54 CDT CPT-40298 Spec Collection and Handling Fee 15:10:24 CDT
--- OUTSIDE RECORDS SUMMARY | 2017-09-07 12:17 | XMS REPORT ---
Author Author [facility] Medical Staff Organization [facility] Address [address] [place], [place] [id number] Phone [phone] Care Team Providers Care Personnel Worker Name Role Phone SHWETA GARCIA MD PP [phone] Summary purpose CCDA Sent to [facility] Chief Complaint and Reason for Visit No [...] Code Type Description Date Performed Performing Physician [id number] CPT-4 URINE CULTURE/COLONY COUNT 08-07-2017 SHWETA GARCIA [id number] CPT-4 CULTURE AEROBIC IDENTIFY 08-07-2017 SHWETA GARCIA 52297 CPT-4 MICROBE SUSCEPTIBLE, RUDY 08-07-2017 SHWETA GARCIA 13209 CPT-4 MICROBE SUSCEPTIBLE, DISK 08-07-2017 SHWETA GARCIA Functional status No functional or cognitive status [...]
--- OUTSIDE RECORDS SUMMARY | 2017-09-07 12:17 | XMS REPORT | Clinical Summary ---
Author Author Admin, MARY Organization [facility] Address Unknown Phone Unavailable Allergies, Adverse Reactions, [...] tab po bid for 7 days METRONIDAZOLE 63394727273 Active Twin Franks MD Active PREDNISONE 20 MG ORAL TABS 2 po qd x 3 days PREDNISONE 85236896864 No Longer Active Twin Franks MD Active AMOXICILLIN 500 MG ORAL CAPS 1 po TID x 10 days AMOXICILLIN 45358584498 Active Twin Franks MD Active CIPRO 500 MG TAB 1 tablet by mouth twice daily CIPROFLOXACIN HCL 78118198842 No Longer Active Lev Huang MD Active FIORICET 325-50-40 MG TAB 1 tablet by mouth four times daily as needed 05/27 [id number] 18573623142 No Longer Active Lev Huang MD Active FLAGYL 500 MG TABS 1 pill by mouth twice daily METRONIDAZOLE 04083536856 No Longer Active Karen Cummins MD PhD Active PREDNISONE 20 MG TAB 2 tabs daily for 4 days, 1 tab daily for 4 days, 1/2 tab daily for 4 days PREDNISONE 04317959451 No Longer Active Karen Cummins MD PhD Active AMOXICILLIN 500 MG CAPS 2 po BID x 10 days AMOXICILLIN 66974390057 No Longer Active Twin Franks MD Active IBUPROFEN 800 MG TABS 1 tab every 8 hours as needed IBUPROFEN 96526080036 No Longer Active Twin Franks MD Active FLONASE 50 MCG/ACT SUSP 2 puffs in each nostril daily FLUTICASONE PROPIONATE 81336338800 No Longer Active Twin Franks MD Active AMOXICILLIN 500 MG CAPS 2 po BID x 10 days AMOXICILLIN 47118847218 No Longer Active Twin Franks MD Active AMOXICILLIN 500 MG CAPS 2 po BID x 10 days AMOXICILLIN 24733533626 No Longer Active Twin Franks MD Active FLONASE 50 MCG/ACT SUSP 2 puffs in each nostril daily FLONASE 50 MCG/ACT SUSP 7095977 FLUTICASONE PROPIONATE Inactive IBUPROFEN 800 MG TABS 1 tab every 8 hours as needed IBUPROFEN 800 MG TABS 467743 IBUPROFEN Inactive PREDNISONE 20 MG TAB 2 tabs daily for 4 days, 1 tab daily for 4 days, 1/2 tab daily for 4 days PREDNISONE 20 MG TAB 280200 PREDNISONE Inactive FIORICET 325-50-40 MG TAB 1 tablet by mouth four times daily as needed 05/27 FIORICET 325-50-40 MG TAB [id number] Inactive AMOXICILLIN 500 MG CAPS 2 po BID x 10 days AMOXICILLIN 500 MG CAPS 339959 AMOXICILLIN Inactive AMOXICILLIN 500 MG CAPS 2 po BID x 10 days AMOXICILLIN 500 MG CAPS 739562 AMOXICILLIN Inactive AMOXICILLIN 500 MG CAPS 2 po BID x 10 days AMOXICILLIN 500 MG CAPS 279395 AMOXICILLIN Inactive FLAGYL 500 MG TABS 1 pill by mouth twice daily FLAGYL 500 MG TABS 330997 METRONIDAZOLE Inactive CIPRO 500 MG TAB 1 tablet by mouth twice daily CIPRO 500 MG TAB 423623 CIPROFLOXACIN HCL Inactive PREDNISONE 20 MG ORAL TABS 2 po qd x 3 days PREDNISONE 20 MG ORAL TABS 628146 PREDNISONE Inactive Vital Signs Date Name Value [...] Value Unit Range Description Lab Report: Chlamydia/GC APTIMA/65770 - Lab chlamydia DNA probe NOT DETECTED NOT DETECTED Lab Report: Chlamydia/GC APTIMA/98576 - Microbiology Neisseria gonorrhoeae DNA probe NOT DETECTED NOT DETECTED Encounters Code Encounter Date Provider Facility CPT-27051 Level 4 Est. Patient 16:40:46 CDT Twin Franks MD [facility] CPT-95815 Level 3 Est. Patient 14:26:47 CDT Lev Huang MD [facility] CPT-45982 Level 3 Est. Patient 15:32:55 CDT Karen Cummins MD PhD [facility] CPT-47356 Level 3 Est. Patient 16:58:58 CDT Twin Franks MD [facility] CPT-40647 Level 3 Est. Patient 15:10:24 CDT Twin Franks MD [facility] CPT-04678 Level 3 Est. Patient 11:09:46 SUPERVISOR [employer] Twin Franks MD [facility] CPT-74863 Level 3 Est. Patient 16:59:32 SUPERVISOR [employer] Twin Franks MD [facility] Procedures Code Procedure Name Date Entry Date Standard Description CPT-18558 Spec Collection and Handling Fee 16:40:47 CDT CPT-J1055 Depo Provera 150 mg (Medroxyprogesterone) 09:01:32 CDT CPT-24248 Abx/Therapy Injection 09:01:32 CDT CPT-80818 Abx/Therapy Injection 11:43:35 CDT CPT-J1055 Depo Provera 150 mg (Medroxyprogesterone) 15:22:54 CDT CPT-66673 Spec Collection and Handling Fee 15:10:24 CDT
--- OUTSIDE RECORDS SUMMARY | 2017-09-07 12:17 | XMS REPORT | Clinical Summary ---
[...] 2 po qd x 3 days PREDNISONE 94248121761 Active Twin Franks MD Active AMOXICILLIN 500 MG ORAL CAPS 1 po TID x 10 days AMOXICILLIN 03568215589 Active Twin Franks MD Active CIPRO 500 MG TAB 1 tablet by mouth twice daily CIPROFLOXACIN HCL 86609117384 No Longer Active Lev Huang MD Active FIORICET 325-50-40 MG TAB 1 tablet by mouth four times daily as needed 05/27 [id number] 20213112598 No Longer Active Lev Huang MD Active FLAGYL 500 MG TABS 1 pill by mouth twice daily METRONIDAZOLE 40495087730 No Longer Active Karen Cummins MD PhD Active PREDNISONE 20 MG TAB 2 tabs daily for 4 days, 1 tab daily for 4 days, 1/2 tab daily for 4 days PREDNISONE 57144603262 No Longer Active Karen Cummins MD PhD Active AMOXICILLIN 500 MG CAPS 2 po BID x 10 days AMOXICILLIN 95848817763 No Longer Active Twin Franks MD Active IBUPROFEN 800 MG TABS 1 tab every 8 hours as needed IBUPROFEN 60743956678 No Longer Active Twin Franks MD Active FLONASE 50 MCG/ACT SUSP 2 puffs in each nostril daily FLUTICASONE PROPIONATE 17395317410 No Longer Active Twin Franks MD Active AMOXICILLIN 500 MG CAPS 2 po BID x 10 days AMOXICILLIN 03199328447 No Longer Active Twin Franks MD Active AMOXICILLIN 500 MG CAPS 2 po BID x 10 days AMOXICILLIN 37417010739 No Longer Active Twin Franks MD Active FLONASE 50 MCG/ACT SUSP 2 puffs in each nostril daily FLONASE 50 MCG/ACT SUSP 7590960 FLUTICASONE PROPIONATE Inactive IBUPROFEN 800 MG TABS 1 tab every 8 hours as needed IBUPROFEN 800 MG TABS 944866 IBUPROFEN Inactive PREDNISONE 20 MG TAB 2 tabs daily for 4 days, 1 tab daily for 4 days, 1/2 tab daily for 4 days PREDNISONE 20 MG TAB 699822 PREDNISONE Inactive FIORICET 325-50-40 MG TAB 1 tablet by mouth four times daily as needed 05/27 FIORICET 325-50-40 MG TAB [id number] Inactive AMOXICILLIN 500 MG CAPS 2 po BID x 10 days AMOXICILLIN 500 MG CAPS 905097 AMOXICILLIN Inactive AMOXICILLIN 500 MG CAPS 2 po BID x 10 days AMOXICILLIN 500 MG CAPS 777845 AMOXICILLIN Inactive AMOXICILLIN 500 MG CAPS 2 po BID x 10 days AMOXICILLIN 500 MG CAPS 691680 AMOXICILLIN Inactive FLAGYL 500 MG TABS 1 pill by mouth twice daily FLAGYL 500 MG TABS 316163 METRONIDAZOLE Inactive CIPRO 500 MG TAB 1 tablet by mouth twice daily CIPRO 500 MG TAB 481140 CIPROFLOXACIN HCL Inactive Vital Signs Date Name [...] Measured Encounters Code Encounter Date Provider Facility CPT-85799 Level 4 Est. Patient 16:40:46 CDT Twin Franks MD [facility] CPT-47864 Level 3 Est. Patient 14:26:47 CDT Lev Huang MD [facility] CPT-98833 Level 3 Est. Patient 15:32:55 CDT Karen Cummins MD, PhD [facility] CPT-08629 Level 3 Est. Patient 16:58:58 CDT Twin Franks MD [facility] CPT-63288 Level 3 Est. Patient 15:10:24 CDT Twin Franks MD [facility] CPT-47753 Level 3 Est. Patient 11:09:46 LOADER Twin Franks MD [facility] CPT-60447 Level 3 Est. Patient 16:59:32 LOADER Twin Franks MD [facility] Procedures Code Procedure Name Date Entry Date Standard Description CPT-99821 Spec Collection and Handling Fee 16:40:47 CDT CPT-J1055 Depo Provera 150 mg (Medroxyprogesterone) 09:01:32 CDT CPT-75385 Abx/Therapy Injection 09:01:32 CDT CPT-19054 Abx/Therapy Injection 11:43:35 CDT CPT-J1055 Depo Provera 150 mg (Medroxyprogesterone) 15:22:54 CDT CPT-94209 Spec Collection and Handling Fee 15:10:24 CDT
--- OUTSIDE RECORDS SUMMARY | 2017-09-07 12:17 | XMS REPORT | Clinical Summary ---
Author Author Admin, MARY Organization [facility] Address Unknown Phone Unavailable Allergies, Adverse Reactions, Alerts Allergy Name Reaction Description Start Date Severity Status Provider No Known Allergies Carmen MONTOYA Conditions or Problems Problem Name Problem Code Onset Date Status Entry Date Provider Comment Standard Description Annotate SINUSITIS, ACUTE 461.9 Resolved Twin Franks MD Acute sinusitis, unspecified ROUTINE GYNECOLOGICAL EXAMINATION V72.31 Active Twin Frakns MD Routine gynecological examination CONTRACEPTIVE MANAGEMENT V25.09 [...] Headache Drug abuse 305.90 Active Jillina Fraalessandral HEAD CONTROL CLERK Other, mixed, or unspecified drug abuse, unspecified use Anxiety 300.00 Active Jillina Frazell HEAD CONTROL CLERK Anxiety state, unspecified SINUSITIS, ACUTE ICD-461.9 Inactive [...] pill twice daily, for anxiety BUSPIRONE HCL 44904038340 Active Jillina Frazell HEAD CONTROL CLERK Active DIFLUCAN 100 MG TAB 1 tablet by mouth x 1 FLUCONAZOLE 65770265414 Active Jillina Frazell HEAD CONTROL CLERK Active CYCLOBENZAPRINE HCL 10 MG TABS 1 tab po q pm, prn tamayo CYCLOBENZAPRINE HCL 99066203668 Active Jillina Frazell HEAD CONTROL CLERK Active TRAMADOL HCL 50 MG TABS 1-2 tablets every 6 hours as needed for pain TRAMADOL HCL 87069173384 Active Jillina Frazell HEAD CONTROL CLERK Active FLAGYL 500 MG ORAL TABS 1 tab po bid for 7 days METRONIDAZOLE 66781862939 No Longer Active Jillina Harjinder VENEGASN Active PREDNISONE 20 MG ORAL TABS 2 po qd x 3 days PREDNISONE 84804879596 No Longer Active Twin Franks MD Active AMOXICILLIN 500 MG ORAL CAPS 1 po TID x 10 days AMOXICILLIN 76429117220 No Longer Active Twin Franks MD Active CIPRO 500 MG TAB 1 tablet by mouth twice daily CIPROFLOXACIN HCL 06842968824 No Longer Active Lev Huang MD Active FIORICET 325-50-40 MG TAB 1 tablet by mouth four times daily as needed 05/27 [id number] 13811841142 No Longer Active Lev Huang MD Active FLAGYL 500 MG TABS 1 pill by mouth twice daily METRONIDAZOLE 51387754467 No Longer Active Karen Cummins MD PhD Active PREDNISONE 20 MG TAB 2 tabs daily for 4 days, 1 tab daily for 4 days, 1/2 tab daily for 4 days PREDNISONE 39471926108 No Longer Active Karen Cummins MD PhD Active AMOXICILLIN 500 MG CAPS 2 po BID x 10 days AMOXICILLIN 60288130775 No Longer Active Twin Franks MD Active IBUPROFEN 800 MG TABS 1 tab every 8 hours as needed IBUPROFEN 61813356775 No Longer Active Twin Franks MD Active FLONASE 50 MCG/ACT SUSP 2 puffs in each nostril daily FLUTICASONE PROPIONATE 15588624989 No Longer Active Twin Franks MD Active AMOXICILLIN 500 MG CAPS 2 po BID x 10 days AMOXICILLIN 08915909897 No Longer Active Twin Franks MD Active AMOXICILLIN 500 MG CAPS 2 po BID x 10 days AMOXICILLIN 36562738372 No Longer Active Twin Franks MD Active FLONASE 50 MCG/ACT SUSP 2 puffs in each nostril daily FLONASE 50 MCG/ACT SUSP 6069996 FLUTICASONE PROPIONATE Inactive IBUPROFEN 800 MG TABS 1 tab every 8 hours as needed IBUPROFEN 800 MG TABS 952121 IBUPROFEN Inactive PREDNISONE 20 MG TAB 2 tabs daily for 4 days, 1 tab daily for 4 days, 1/2 tab daily for 4 days PREDNISONE 20 MG TAB 591744 PREDNISONE Inactive FIORICET 325-50-40 MG TAB 1 tablet by mouth four times daily as needed 05/27 FIORICET 325-50-40 MG TAB [id number] Inactive FLAGYL 500 MG ORAL TABS 1 tab po bid for 7 days FLAGYL 500 MG ORAL TABS 670607 METRONIDAZOLE Inactive AMOXICILLIN 500 MG CAPS 2 po BID x 10 days AMOXICILLIN 500 MG CAPS 248360 AMOXICILLIN Inactive AMOXICILLIN 500 MG CAPS 2 po BID x 10 days AMOXICILLIN 500 MG CAPS 790015 AMOXICILLIN Inactive AMOXICILLIN 500 MG CAPS 2 po BID x 10 days AMOXICILLIN 500 MG CAPS 682964 AMOXICILLIN Inactive FLAGYL 500 MG TABS 1 pill by mouth twice daily FLAGYL 500 MG TABS 448545 METRONIDAZOLE Inactive CIPRO 500 MG TAB 1 tablet by mouth twice daily CIPRO 500 MG TAB 155207 CIPROFLOXACIN HCL Inactive AMOXICILLIN 500 MG ORAL CAPS 1 po TID x 10 days AMOXICILLIN 500 MG ORAL CAPS 602508 AMOXICILLIN Inactive PREDNISONE 20 MG ORAL TABS 2 po qd x 3 days PREDNISONE 20 MG ORAL TABS 205049 PREDNISONE Inactive Vital Signs Date Name Value [...] urine, semiquantitative Negative Negative Lab Report: Chlamydia/GC APTIMA/11698 - Lab chlamydia DNA probe NOT DETECTED NOT DETECTED Lab Report: Chlamydia/GC APTIMA/34711 - Microbiology Neisseria gonorrhoeae DNA probe NOT DETECTED NOT DETECTED Lab Report: Comp. Metabolic Panel, Free Thyroxine (L), Thyroid Stimulati ... - Chemistry sodium, serum 140 mmol/L 395-420 2733/08/16 carbon dioxide, venous blood 32.2 mmol/L 21.0-32.0 [...] 0.36-3.74 Encounters Code Encounter Date Provider Facility CPT-33187 Level 3 Est. Patient 11:22:49 CDT Sasha Grande APRN [facility] CPT-49341 Level 4 Est. Patient 16:40:46 CDT Twin Franks MD [facility] CPT-88845 Level 3 Est. Patient 14:26:47 CDT Lev Huang MD [facility] CPT-87512 Level 3 Est. Patient 15:32:55 CDT [facility] Level 3 Est. Patient 16:58:58 CDT Twin Franks MD [facility] CPT-44417 Level 3 Est. Patient 15:10:24 CDT Twin Franks MD [facility] CPT-14927 Level 3 Est. 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 Patient 16:59:32 RESOURCE SPECIALIST TEACHER Twin Franks MD [facility] Procedures Code Procedure Name Date Entry Date Standard Description CPT-76625 IM or SQ Injection 12:06:22 CDT CPT-J1885 Toradol 30 mg (Ketorolac) 11:30:17 CDT CPT-07872 Spec Collection and Handling Fee 16:40:47 CDT CPT-J1055 Depo Provera 150 mg (Medroxyprogesterone) 09:01:32 CDT CPT-39765 Abx/Therapy Injection 09:01:32 CDT CPT-33888 Abx/Therapy Injection 11:43:35 CDT CPT-J1055 Depo Provera 150 mg (Medroxyprogesterone) 15:22:54 CDT CPT-15414 Spec Collection and Handling Fee 15:10:24 CDT
--- OUTSIDE RECORDS SUMMARY | 2017-09-07 12:18 | XMS REPORT | Clinical Summary ---
Author Author Admin, MARY Organization [facility] Address Unknown Phone Unavailable Allergies, Adverse Reactions, [...] Headache Drug abuse 305.90 Active Jillina Frazell TABLE HAND Other, mixed, or unspecified drug abuse, unspecified use Anxiety 300.00 Active Jillina Shamirl TABLE HAND Anxiety state, unspecified DYSURIA 788.1 Active Jimarcial [...] TABS 1 tab po bid PHENAZOPYRIDINE HCL 26854242510 Active Aylaina Harjinder VENEGASN Active CIPRO 500 MG TAB 1 tablet by mouth twice daily CIPROFLOXACIN HCL 99785691046 Active Geraldllina Shamirl TABLE HAND Active TRAMADOL HCL 50 MG TABS 1-2 tablets every 6 hours as needed for pain TRAMADOL HCL 25500549096 No Longer Active Geraldllina Shamirl TABLE HAND Active CYCLOBENZAPRINE HCL 10 MG TABS 1 tab po q pm, prn tamayo CYCLOBENZAPRINE HCL 39686584609 No Longer Active Geraldllina Shamirl TABLE HAND Active DIFLUCAN 100 MG TAB 1 tablet by mouth x 1 FLUCONAZOLE 26917233933 No Longer Active Jillina Fraalessandral TABLE HAND Active BUSPIRONE HCL 7.5 MG ORAL TABS 1 pill twice daily, for anxiety BUSPIRONE HCL 03988166998 No Longer Active Jillina Fraalessandral TABLE HAND Active FLAGYL 500 MG ORAL TABS 1 tab po bid for 7 days METRONIDAZOLE 49501338185 No Longer Active Jillina Frazell TABLE HAND Active PREDNISONE 20 MG ORAL TABS 2 po qd x 3 days PREDNISONE 10859541748 No Longer Active Twin Franks MD Active AMOXICILLIN 500 MG ORAL CAPS 1 po TID x 10 days AMOXICILLIN 86264322488 No Longer Active Twin Franks MD Active CIPRO 500 MG TAB 1 tablet by mouth twice daily CIPROFLOXACIN HCL 68480682627 No Longer Active Lev Huang MD Active FIORICET 325-50-40 MG TAB 1 tablet by mouth four times daily as needed 05/27 [id number] 42137147625 No Longer Active Lev Huang MD Active FLAGYL 500 MG TABS 1 pill by mouth twice daily METRONIDAZOLE 22060086730 No Longer Active Karen Cummins MD PhD Active PREDNISONE 20 MG TAB 2 tabs daily for 4 days, 1 tab daily for 4 days, 1/2 tab daily for 4 days PREDNISONE 18573973361 No Longer Active Karen Cummins MD PhD Active AMOXICILLIN 500 MG CAPS 2 po BID x 10 days AMOXICILLIN 63969768820 No Longer Active Twin Franks MD Active IBUPROFEN 800 MG TABS 1 tab every 8 hours as needed IBUPROFEN 76574835844 No Longer Active Twin Franks MD Active FLONASE 50 MCG/ACT SUSP 2 puffs in each nostril daily FLUTICASONE PROPIONATE 84770492903 No Longer Active Twin Franks MD Active AMOXICILLIN 500 MG CAPS 2 po BID x 10 days AMOXICILLIN 97170189501 No Longer Active Twin Franks MD Active AMOXICILLIN 500 MG CAPS 2 po BID x 10 days AMOXICILLIN 85181511816 No Longer Active Twin Franks MD Active FLONASE 50 MCG/ACT SUSP 2 puffs in each nostril daily FLONASE 50 MCG/ACT SUSP 0482666 FLUTICASONE PROPIONATE Inactive IBUPROFEN 800 MG TABS 1 tab every 8 hours as needed IBUPROFEN 800 MG TABS 704644 IBUPROFEN Inactive PREDNISONE 20 MG TAB 2 tabs daily for 4 days, 1 tab daily for 4 days, 1/2 tab daily for 4 days PREDNISONE 20 MG TAB 525411 PREDNISONE Inactive FIORICET 325-50-40 MG TAB 1 tablet by mouth four times daily as needed 05/27 FIORICET 325-50-40 MG TAB [id number] Inactive FLAGYL 500 MG ORAL TABS 1 tab po bid for 7 days FLAGYL 500 MG ORAL TABS 282672 METRONIDAZOLE Inactive BUSPIRONE HCL 7.5 MG ORAL TABS 1 pill twice daily, for anxiety BUSPIRONE HCL 7.5 MG ORAL TABS 633136 BUSPIRONE HCL Inactive DIFLUCAN 100 MG TAB 1 tablet by mouth x 1 DIFLUCAN 100 MG TAB 929820 FLUCONAZOLE Inactive CYCLOBENZAPRINE HCL 10 MG TABS 1 tab po q pm, prn tamayo CYCLOBENZAPRINE HCL 10 MG TABS 690631 CYCLOBENZAPRINE HCL Inactive TRAMADOL HCL 50 MG TABS 1-2 tablets every 6 hours as needed for pain TRAMADOL HCL 50 MG TABS 714759 TRAMADOL HCL Inactive AMOXICILLIN 500 MG CAPS 2 po BID x 10 days AMOXICILLIN 500 MG CAPS 290553 AMOXICILLIN Inactive AMOXICILLIN 500 MG CAPS 2 po BID x 10 days AMOXICILLIN 500 MG CAPS 938816 AMOXICILLIN Inactive AMOXICILLIN 500 MG CAPS 2 po BID x 10 days AMOXICILLIN 500 MG CAPS 530518 AMOXICILLIN Inactive FLAGYL 500 MG TABS 1 pill by mouth twice daily FLAGYL 500 MG TABS 463545 METRONIDAZOLE Inactive CIPRO 500 MG TAB 1 tablet by mouth twice daily CIPRO 500 MG TAB 053355 CIPROFLOXACIN HCL Inactive AMOXICILLIN 500 MG ORAL CAPS 1 po TID x 10 days AMOXICILLIN 500 MG ORAL CAPS 707713 AMOXICILLIN Inactive PREDNISONE 20 MG ORAL TABS 2 po qd x 3 days PREDNISONE 20 MG ORAL TABS 407223 PREDNISONE Inactive Vital Signs Date Name Value [...] urine, semiquantitative Negative Negative Lab Report: Chlamydia/GC APTIMA/47200 - Lab chlamydia DNA probe NOT DETECTED NOT DETECTED chlamydia DNA probe NOT DETECTED NOT DETECTED Lab Report: Chlamydia/GC APTIMA/16944 - Microbiology Neisseria gonorrhoeae DNA probe NOT DETECTED NOT DETECTED Neisseria gonorrhoeae DNA probe NOT DETECTED NOT DETECTED Lab Report: Comp. Metabolic Panel, Free Thyroxine (L), Thyroid Stimulati ... - Chemistry sodium, serum 140 mmol/L [phone]/08/16 carbon dioxide, venous blood 32.2 mmol/L 21.0-32.0 [...] 0.36-3.74 Encounters Code Encounter Date Provider Facility CPT-97941 Level 3 Est. Patient 10:46:44 CDT Sasha Grande [facility] [place] 2] CPT-96251 Level 3 Est. Patient 11:22:49 CDT Sasha Grande [facility] [place][note 2] CPT-46517 Level 4 Est. Patient 16:40:46 CDT Twin Franks MD [facility] CPT-31586 Level 3 Est. Patient 14:26:47 CDT Lev Huang MD [facility] CPT-58768 Level 3 Est. Patient 15:32:55 CDT Karen Cummins MD PhD [facility] CPT-78864 Level 3 Est. Patient 16:58:58 CDT Twin Franks MD [facility] CPT-45148 Level 3 Est. Patient 15:10:24 CDT Twin Franks MD [facility] CPT-20216 Level 3 Est. 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
--- OUTSIDE RECORDS SUMMARY | 2017-09-07 12:18 | XMS REPORT | Clinical Summary ---
Author Author Admin, MARY Organization [facility] Address Unknown Phone Unavailable Allergies, Adverse [...] 2 po qd x 3 days PREDNISONE [id number] No Longer Active Twin Franks MD Active AMOXICILLIN 500 MG ORAL CAPS 1 po TID x 10 days AMOXICILLIN 11814149741 Active Twin Franks MD Active CIPRO 500 MG TAB 1 tablet by mouth twice daily CIPROFLOXACIN HCL 34789414586 No Longer Active Lev Huang MD Active FIORICET 325-50-40 MG TAB 1 tablet by mouth four times daily as needed 05/27 [id number] 72942717297 No Longer Active Lev Huang MD Active FLAGYL 500 MG TABS 1 pill by mouth twice daily METRONIDAZOLE 57567755583 No Longer Active Karen Cummins MD PhD Active PREDNISONE 20 MG TAB 2 tabs daily for 4 days, 1 tab daily for 4 days, 1/2 tab daily for 4 days PREDNISONE 02102870883 No Longer Active Karen Cummins MD PhD Active AMOXICILLIN 500 MG CAPS 2 po BID x 10 days AMOXICILLIN 16396681710 No Longer Active Twin Franks MD Active IBUPROFEN 800 MG TABS 1 tab every 8 hours as needed IBUPROFEN 57379085704 No Longer Active Twin Franks MD Active FLONASE 50 MCG/ACT SUSP 2 puffs in each nostril daily FLUTICASONE PROPIONATE 93558817477 No Longer Active Twin Franks MD Active AMOXICILLIN 500 MG CAPS 2 po BID x 10 days AMOXICILLIN 84598805061 No Longer Active Twin Franks MD Active AMOXICILLIN 500 MG CAPS 2 po BID x 10 days AMOXICILLIN 11255551027 No Longer Active Twin Franks MD Active FLONASE 50 MCG/ACT SUSP 2 puffs in each nostril daily FLONASE 50 MCG/ACT SUSP 7732485 FLUTICASONE PROPIONATE Inactive IBUPROFEN 800 MG TABS 1 tab every 8 hours as needed IBUPROFEN 800 MG TABS 418585 IBUPROFEN Inactive PREDNISONE 20 MG TAB 2 tabs daily for 4 days, 1 tab daily for 4 days, 1/2 tab daily for 4 days PREDNISONE 20 MG TAB 966415 PREDNISONE Inactive FIORICET 325-50-40 MG TAB 1 tablet by mouth four times daily as needed 05/27 FIORICET 325-50-40 MG TAB [id number] Inactive AMOXICILLIN 500 MG CAPS 2 po BID x 10 days AMOXICILLIN 500 MG CAPS 301456 AMOXICILLIN Inactive AMOXICILLIN 500 MG CAPS 2 po BID x 10 days AMOXICILLIN 500 MG CAPS 007503 AMOXICILLIN Inactive AMOXICILLIN 500 MG CAPS 2 po BID x 10 days AMOXICILLIN 500 MG CAPS 790368 AMOXICILLIN Inactive FLAGYL 500 MG TABS 1 pill by mouth twice daily FLAGYL 500 MG TABS 141450 METRONIDAZOLE Inactive CIPRO 500 MG TAB 1 tablet by mouth twice daily CIPRO 500 MG TAB 140897 CIPROFLOXACIN HCL Inactive PREDNISONE 20 MG ORAL TABS 2 po qd x 3 days PREDNISONE 20 MG ORAL TABS 435009 PREDNISONE Inactive Vital Signs Date Name Value [...] Value Unit Range Description Lab Report: Chlamydia/GC APTIMA/55618 - Lab chlamydia DNA probe NOT DETECTED NOT DETECTED Lab Report: Chlamydia/GC APTIMA/08674 - Microbiology Neisseria gonorrhoeae DNA probe NOT DETECTED NOT DETECTED Encounters Code Encounter Date Provider Facility CPT-79459 Level 4 Est. Patient 16:40:46 CDT Twin Franks MD [facility] CPT-11854 Level 3 Est. Patient 14:26:47 CDT Lev Huang MD [facility] CPT-08224 Level 3 Est. Patient 15:32:55 CDT Karen Cummins MD PhD [facility] CPT-05509 Level 3 Est. Patient 16:58:58 CDT Twin Franks MD [facility] CPT-58487 Level 3 Est. Patient 15:10:24 CDT Twin Franks MD [facility] CPT-84474 Level 3 Est. 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 Patient 16:59:32 CLASSIFIED COPY CONTROL CLERK Twin Franks MD [facility] Procedures Code Procedure Name Date Entry Date Standard Description CPT-34222 Spec Collection and Handling Fee 16:40:47 CDT CPT-J1055 Depo Provera 150 mg (Medroxyprogesterone) 09:01:32 CDT CPT-25786 Abx/Therapy Injection 09:01:32 CDT CPT-27537 Abx/Therapy Injection 11:43:35 CDT CPT-J1055 Depo Provera 150 mg (Medroxyprogesterone) 15:22:54 CDT CPT-88709 Spec Collection and Handling Fee 15:10:24 CDT
--- OUTSIDE RECORDS SUMMARY | 2017-09-07 12:18 | XMS REPORT | Clinical Summary ---
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 Other, mixed, or unspecified drug abuse, unspecified use Anxiety 300.00 Active Jillina Shamirl SENIOR SOFTWARE ARCHITECT Anxiety state, unspecified DYSURIA 788.1 Active Jimarcial [...] TABS 1 tab po bid PHENAZOPYRIDINE HCL 49486237566 Active Aylaina Harjinder VENEGASN Active CIPRO 500 MG TAB 1 tablet by mouth twice daily CIPROFLOXACIN HCL 83448227255 Active Geraldllina Shamirl SENIOR SOFTWARE ARCHITECT Active TRAMADOL HCL 50 MG TABS 1-2 tablets every 6 hours as needed for pain TRAMADOL HCL 49376707525 No Longer Active Geraldllina Shamirl SENIOR SOFTWARE ARCHITECT Active CYCLOBENZAPRINE HCL 10 MG TABS 1 tab po q pm, prn tamayo CYCLOBENZAPRINE HCL 01739114793 No Longer Active Geraldllina Shamirl SENIOR SOFTWARE ARCHITECT Active DIFLUCAN 100 MG TAB 1 tablet by mouth x 1 FLUCONAZOLE 38020312470 No Longer Active Jillina Fraalessandral SENIOR SOFTWARE ARCHITECT Active BUSPIRONE HCL 7.5 MG ORAL TABS 1 pill twice daily, for anxiety BUSPIRONE HCL 20756467415 No Longer Active Jillina Fraalessandral SENIOR SOFTWARE ARCHITECT Active FLAGYL 500 MG ORAL TABS 1 tab po bid for 7 days METRONIDAZOLE 15661579492 No Longer Active Jillina Frazell SENIOR SOFTWARE ARCHITECT Active PREDNISONE 20 MG ORAL TABS 2 po qd x 3 days PREDNISONE 90381301381 No Longer Active Twin Franks MD Active AMOXICILLIN 500 MG ORAL CAPS 1 po TID x 10 days AMOXICILLIN 78394097336 No Longer Active Twin Franks MD Active CIPRO 500 MG TAB 1 tablet by mouth twice daily CIPROFLOXACIN HCL 20471051042 No Longer Active Lev Huang MD Active FIORICET 325-50-40 MG TAB 1 tablet by mouth four times daily as needed 05/27 [id number] 36500199553 No Longer Active Lev Huang MD Active FLAGYL 500 MG TABS 1 pill by mouth twice daily METRONIDAZOLE 56549377594 No Longer Active Karen Cummins MD PhD Active PREDNISONE 20 MG TAB 2 tabs daily for 4 days, 1 tab daily for 4 days, 1/2 tab daily for 4 days PREDNISONE 36075528520 No Longer Active Karen Cummins MD PhD Active AMOXICILLIN 500 MG CAPS 2 po BID x 10 days AMOXICILLIN 87794433162 No Longer Active Twin Franks MD Active IBUPROFEN 800 MG TABS 1 tab every 8 hours as needed IBUPROFEN 45328350803 No Longer Active Twin Franks MD Active FLONASE 50 MCG/ACT SUSP 2 puffs in each nostril daily FLUTICASONE PROPIONATE 91862557082 No Longer Active Twin Franks MD Active AMOXICILLIN 500 MG CAPS 2 po BID x 10 days AMOXICILLIN 20699588265 No Longer Active Twin Franks MD Active AMOXICILLIN 500 MG CAPS 2 po BID x 10 days AMOXICILLIN 32037608804 No Longer Active Twin Franks MD Active FLONASE 50 MCG/ACT SUSP 2 puffs in each nostril daily FLONASE 50 MCG/ACT SUSP 7807276 FLUTICASONE PROPIONATE Inactive IBUPROFEN 800 MG TABS 1 tab every 8 hours as needed IBUPROFEN 800 MG TABS 592371 IBUPROFEN Inactive PREDNISONE 20 MG TAB 2 tabs daily for 4 days, 1 tab daily for 4 days, 1/2 tab daily for 4 days PREDNISONE 20 MG TAB 996293 PREDNISONE Inactive FIORICET 325-50-40 MG TAB 1 tablet by mouth four times daily as needed 05/27 FIORICET 325-50-40 MG TAB [id number] Inactive FLAGYL 500 MG ORAL TABS 1 tab po bid for 7 days FLAGYL 500 MG ORAL TABS 459483 METRONIDAZOLE Inactive BUSPIRONE HCL 7.5 MG ORAL TABS 1 pill twice daily, for anxiety BUSPIRONE HCL 7.5 MG ORAL TABS 671337 BUSPIRONE HCL Inactive DIFLUCAN 100 MG TAB 1 tablet by mouth x 1 DIFLUCAN 100 MG TAB 927477 FLUCONAZOLE Inactive CYCLOBENZAPRINE HCL 10 MG TABS 1 tab po q pm, prn tamayo CYCLOBENZAPRINE HCL 10 MG TABS 543571 CYCLOBENZAPRINE HCL Inactive TRAMADOL HCL 50 MG TABS 1-2 tablets every 6 hours as needed for pain TRAMADOL HCL 50 MG TABS 972712 TRAMADOL HCL Inactive AMOXICILLIN 500 MG CAPS 2 po BID x 10 days AMOXICILLIN 500 MG CAPS 667443 AMOXICILLIN Inactive AMOXICILLIN 500 MG CAPS 2 po BID x 10 days AMOXICILLIN 500 MG CAPS 432828 AMOXICILLIN Inactive AMOXICILLIN 500 MG CAPS 2 po BID x 10 days AMOXICILLIN 500 MG CAPS 934583 AMOXICILLIN Inactive FLAGYL 500 MG TABS 1 pill by mouth twice daily FLAGYL 500 MG TABS 052578 METRONIDAZOLE Inactive CIPRO 500 MG TAB 1 tablet by mouth twice daily CIPRO 500 MG TAB 264797 CIPROFLOXACIN HCL Inactive AMOXICILLIN 500 MG ORAL CAPS 1 po TID x 10 days AMOXICILLIN 500 MG ORAL CAPS 382510 AMOXICILLIN Inactive PREDNISONE 20 MG ORAL TABS 2 po qd x 3 days PREDNISONE 20 MG ORAL TABS 416855 PREDNISONE Inactive Vital Signs Date Name Value [...] urine, semiquantitative Negative Negative Lab Report: Chlamydia/GC APTIMA/76734 - Lab chlamydia DNA probe NOT DETECTED NOT DETECTED chlamydia DNA probe NOT DETECTED NOT DETECTED Lab Report: Chlamydia/GC APTIMA/00182 - Microbiology Neisseria gonorrhoeae DNA probe NOT DETECTED NOT DETECTED Neisseria gonorrhoeae DNA probe NOT DETECTED NOT DETECTED Lab Report: Comp. Metabolic Panel, Free Thyroxine (L), Thyroid Stimulati ... - Chemistry sodium, serum 140 mmol/L 671-562 5703/08/16 carbon dioxide, venous blood 32.2 mmol/L 21.0-32.0 [...] 0.36-3.74 Encounters Code Encounter Date Provider Facility CPT-77544 Level 3 Est. Patient 10:46:44 CDT Sasha Grande [facility] [place] CPT-55610 Level 3 Est. Patient 11:22:49 CDT Sasha Grande [facility] [place] CPT-38646 Level 4 Est. Patient 16:40:46 CDT Twin Franks MD [facility] CPT-69738 Level 3 Est. Patient 14:26:47 CDT Lev Huang MD [facility] CPT-26211 Level 3 Est. Patient 15:32:55 CDT Karen Cummins MD PhD [facility] CPT-00409 Level 3 Est. Patient 16:58:58 CDT Twin Franks MD [facility] CPT-35211 Level 3 Est. Patient 15:10:24 CDT Twin Franks MD [facility] CPT-00279 Level 3 Est. Patient 11:09:46 IP ARCHITECT Twin Franks MD [facility] CPT-62736 Level 3 Est. Patient 16:59:32 IP ARCHITECT Twin Franks MD [facility] Procedures Code Procedure Name Date Entry Date Standard Description CPT-23843 IM or SQ Injection 12:06:22 CDT CPT-J1885 Toradol 30 mg (Ketorolac) 11:30:17 CDT CPT-52725 Spec Collection and Handling Fee 16:40:47 CDT CPT-J1055 Depo Provera 150 mg (Medroxyprogesterone) 09:01:32 CDT CPT-73811 Abx/Therapy Injection 09:01:32 CDT CPT-33715 Abx/Therapy Injection 11:43:35 CDT CPT-J1055 Depo Provera 150 mg (Medroxyprogesterone) 15:22:54 CDT CPT-35976 Spec Collection and Handling Fee 15:10:24 CDT
--- OUTSIDE RECORDS SUMMARY | 2017-09-07 12:19 | XMS REPORT | Clinical Summary ---
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 do not mix with ETOH METRONIDAZOLE 06689355437 Active Sasha Grande APRN Active MACROBID 100 MG ORAL CAPSULE 1 cap by mouth twice daily NITROFURANTOIN MONOHYD MACRO 04576824572 Active Sasha Grande APRN Active BACTRIM DS 800-160 MG ORAL TABLET 1 po BID x 7 days SULFAMETHOXAZOLE-TRIMETHOPRIM 18931261133 No Longer Active Twin Franks MD Active CELEXA 20 MG ORAL TABLET Take one tab po daily CITALOPRAM HYDROBROMIDE 81317845477 Active Twin Franks MD Active PHENAZOPYRIDINE HCL 100 MG ORAL TABLET 1 tab po bid PHENAZOPYRIDINE HCL 20317147891 No Longer Active Twin Franks MD Active CIPRO 500 MG ORAL TABLET 1 tablet by mouth twice daily CIPROFLOXACIN HCL 35585625915 No Longer Active Twin Franks MD Active TRAMADOL HCL 50 MG ORAL TABLET 1-2 tablets every 6 hours as needed for pain TRAMADOL HCL 70201553146 No Longer Active Jillina Frazell CHIEF CLERK SHELTER Active CYCLOBENZAPRINE HCL 10 MG ORAL TABLET 1 tab po q pm, prn tamayo CYCLOBENZAPRINE HCL 40745492451 No Longer Active Jillina Frazell CHIEF CLERK SHELTER Active DIFLUCAN 100 MG ORAL TABLET 1 tablet by mouth x 1 FLUCONAZOLE 85145472652 No Longer Active Jillina Frazell CHIEF CLERK SHELTER Active BUSPIRONE HCL 7.5 MG ORAL TABLET 1 pill twice daily, for anxiety BUSPIRONE HCL 30025060788 No Longer Active Jillina Frazell CHIEF CLERK SHELTER Active FLAGYL 500 MG ORAL TABLET 1 tab po bid for 7 days METRONIDAZOLE 39296240402 No Longer Active Jillina Fraalessandral CHIEF CLERK SHELTER Active PREDNISONE 20 MG ORAL TABLET 2 po qd x 3 days PREDNISONE 20366478877 No Longer Active Twin Franks MD Active AMOXICILLIN 500 MG ORAL CAPSULE 1 po TID x 10 days AMOXICILLIN 77260836517 No Longer Active Twin Franks MD Active CIPRO 500 MG ORAL TABLET 1 tablet by mouth twice daily CIPROFLOXACIN HCL 63963208832 No Longer Active Lev Huang MD Active FIORICET 325-50-40 MG TAB 1 tablet by mouth four times daily as needed 05/27 [id number]-[id number] 48602312160 No Longer Active Lev Huang MD Active FLAGYL 500 MG ORAL TABLET 1 pill by mouth twice daily METRONIDAZOLE 35622117300 No Longer Active Karen Cummins MD PhD Active PREDNISONE 20 MG ORAL TABLET 2 tabs daily for 4 days, 1 tab daily for 4 days, 1/2 tab daily for 4 days PREDNISONE 97131766057 No Longer Active Karen Cummins MD PhD Active AMOXICILLIN 500 MG ORAL CAPSULE 2 po BID x 10 days AMOXICILLIN 06710009791 No Longer Active Twin Franks MD Active IBUPROFEN 800 MG ORAL TABLET 1 tab every 8 hours as needed 03/15 IBUPROFEN 99807409050 No Longer Active Twin Franks MD Active FLONASE 50 MCG/ACT NASAL SUSPENSION 2 puffs in each nostril daily FLUTICASONE PROPIONATE 06247661155 No Longer Active Twin Franks MD Active AMOXICILLIN 500 MG ORAL CAPSULE 2 po BID x 10 days AMOXICILLIN 67395710947 No Longer Active Twin Franks MD Active AMOXICILLIN 500 MG ORAL CAPSULE 2 po BID x 10 days AMOXICILLIN 04825585009 No Longer Active Twin Franks MD Active FLONASE 50 MCG/ACT NASAL SUSPENSION 2 puffs in each nostril daily FLONASE 50 MCG/ACT NASAL SUSPENSION 3283016 FLUTICASONE PROPIONATE Inactive IBUPROFEN 800 MG ORAL TABLET 1 tab every 8 hours as needed 03/15 IBUPROFEN 800 MG ORAL TABLET 931280 IBUPROFEN Inactive PREDNISONE 20 MG ORAL TABLET 2 tabs daily for 4 days, 1 tab daily for 4 days, 1/2 tab daily for 4 days PREDNISONE 20 MG ORAL TABLET 281274 PREDNISONE Inactive FIORICET 325-50-40 MG TAB 1 tablet by mouth four times daily as needed 05/27 FIORICET 325-50-40 MG TAB [id number] Inactive FLAGYL 500 MG ORAL TABLET 1 tab po bid for 7 days FLAGYL 500 MG ORAL TABLET 799488 METRONIDAZOLE Inactive BUSPIRONE HCL 7.5 MG ORAL TABLET 1 pill twice daily, for anxiety BUSPIRONE HCL 7.5 MG ORAL TABLET 284523 BUSPIRONE HCL Inactive DIFLUCAN 100 MG ORAL TABLET 1 tablet by mouth x 1 DIFLUCAN 100 MG ORAL TABLET 586323 FLUCONAZOLE Inactive CYCLOBENZAPRINE HCL 10 MG ORAL TABLET 1 tab po q pm, prn tamayo 10/11 CYCLOBENZAPRINE HCL 10 MG ORAL TABLET 904714 CYCLOBENZAPRINE HCL Inactive TRAMADOL HCL 50 MG ORAL TABLET 1-2 tablets every 6 hours as needed for pain TRAMADOL HCL 50 MG ORAL TABLET 354088 TRAMADOL HCL Inactive CIPRO 500 MG ORAL TABLET 1 tablet by mouth twice daily CIPRO 500 MG ORAL TABLET 835633 CIPROFLOXACIN HCL Inactive PHENAZOPYRIDINE HCL 100 MG ORAL TABLET 1 tab po bid PHENAZOPYRIDINE HCL 100 MG ORAL TABLET 4940817 PHENAZOPYRIDINE HCL Inactive AMOXICILLIN 500 MG ORAL CAPSULE 2 po BID x 10 days AMOXICILLIN 500 MG ORAL CAPSULE 825500 AMOXICILLIN Inactive AMOXICILLIN 500 MG ORAL CAPSULE 2 po BID x 10 days AMOXICILLIN 500 MG ORAL CAPSULE 089263 AMOXICILLIN Inactive AMOXICILLIN 500 MG ORAL CAPSULE 2 po BID x 10 days AMOXICILLIN 500 MG ORAL CAPSULE 713566 AMOXICILLIN Inactive FLAGYL 500 MG ORAL TABLET 1 pill by mouth twice daily FLAGYL 500 MG ORAL TABLET 269186 METRONIDAZOLE Inactive CIPRO 500 MG ORAL TABLET 1 tablet by mouth twice daily CIPRO 500 MG ORAL TABLET 112724 CIPROFLOXACIN HCL Inactive AMOXICILLIN 500 MG ORAL CAPSULE 1 po TID x 10 days AMOXICILLIN 500 MG ORAL CAPSULE 393491 AMOXICILLIN Inactive PREDNISONE 20 MG ORAL TABLET 2 po qd x 3 days PREDNISONE 20 MG ORAL TABLET 050196 PREDNISONE Inactive BACTRIM DS 800-160 MG ORAL TABLET 1 po BID x 7 days BACTRIM DS 800-160 MG ORAL TABLET 351877 SULFAMETHOXAZOLE-TRIMETHOPRIM Inactive Vital Signs Date Name Value [...] urine, semiquantitative Negative Negative Lab Report: Chlamydia/GC APTIMA/75275 - Lab chlamydia DNA probe NOT DETECTED NOT DETECTED chlamydia DNA probe NOT DETECTED NOT DETECTED chlamydia DNA probe NOT DETECTED NOT DETECTED Lab Report: Chlamydia/GC APTIMA/70018 - Microbiology Neisseria gonorrhoeae DNA probe NOT DETECTED NOT DETECTED Neisseria gonorrhoeae DNA probe NOT DETECTED NOT DETECTED Neisseria gonorrhoeae DNA probe NOT DETECTED NOT DETECTED Lab Report: Comp. Metabolic Panel, Free Thyroxine (L), Thyroid Stimulati ... - Chemistry sodium, serum 140 mmol/L 579-945 1904/08/16 carbon dioxide, venous blood 32.2 mmol/L 21.0-32.0 [...] 5.0-8.5 Encounters Code Encounter Date Provider Facility CPT-50152 Level 3 Est. Patient 11:19:27 BOOM BOSS Sasha Grande [facility] CPT-52052 Level 3 Est. Patient 16:51:52 CDT Twin Franks MD [facility] CPT-66797 Level 3 Est. Patient 10:46:44 CDT Sasha Grande [facility] CPT-53095 Level 3 Est. Patient 11:22:49 CDT Sasha Grande [facility] CPT-63690 Level 4 Est. Patient 16:40:46 CDT Twin Franks MD [facility] CPT-91724 Level 3 Est. Patient 14:26:47 CDT Lev Huang MD [facility] CPT-24152 Level 3 Est. Patient 15:32:55 CDT Karen Cummins MD PhD [facility] CPT-28597 Level 3 Est. Patient 16:58:58 CDT Twin Franks MD [facility] CPT-24896 Level 3 Est. Patient 15:10:24 CDT Twin Franks MD [facility] CPT-09373 Level 3 Est. Patient 11:09:46 BOOM BOSS Twin Franks MD [facility] CPT-63861 Level 3 Est. Patient 16:59:32 BOOM BOSS Twin Franks MD [facility] Procedures Code Procedure Name Date Entry Date Standard Description CPT-24085 Spec Collection and Handling Fee 11:23:53 BOOM BOSS CPT-48422 IM or SQ Injection 12:06:22 CDT CPT-J1885 Toradol 30 mg (Ketorolac) 11:30:17 CDT CPT-17663 Spec Collection and Handling Fee 16:40:47 CDT CPT-J1055 Depo Provera 150 mg (Medroxyprogesterone) 09:01:32 CDT CPT-37509 Abx/Therapy Injection 09:01:32 CDT CPT-97862 Abx/Therapy Injection 11:43:35 CDT CPT-J1055 Depo Provera 150 mg (Medroxyprogesterone) 15:22:54 CDT CPT-46170 Spec Collection and Handling Fee 15:10:24 CDT
--- OUTSIDE RECORDS SUMMARY | 2017-09-07 12:20 | XMS REPORT | Clinical Summary ---
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 do not mix with ETOH METRONIDAZOLE [id number] Active Sasha Grande APRN Active MACROBID 100 MG ORAL CAPSULE 1 cap by mouth twice daily NITROFURANTOIN MONOHYD MACRO 76735649583 Active Sasha Grande APRN Active BACTRIM DS 800-160 MG ORAL TABLET 1 po BID x 7 days SULFAMETHOXAZOLE-TRIMETHOPRIM 27543124734 No Longer Active Twin Franks MD Active CELEXA 20 MG ORAL TABLET Take one tab po daily CITALOPRAM HYDROBROMIDE 74584720022 Active Twin Franks MD Active PHENAZOPYRIDINE HCL 100 MG ORAL TABLET 1 tab po bid PHENAZOPYRIDINE HCL 24978453337 No Longer Active Twin Franks MD Active CIPRO 500 MG ORAL TABLET 1 tablet by mouth twice daily CIPROFLOXACIN HCL 74092926223 No Longer Active Twin Franks MD Active TRAMADOL HCL 50 MG ORAL TABLET 1-2 tablets every 6 hours as needed for pain TRAMADOL HCL 16318914340 No Longer Active Jillina Frazell MOVING VAN DRIVER Active CYCLOBENZAPRINE HCL 10 MG ORAL TABLET 1 tab po q pm, prn tamayo CYCLOBENZAPRINE HCL 08573833824 No Longer Active Jillina Frazell MOVING VAN DRIVER Active DIFLUCAN 100 MG ORAL TABLET 1 tablet by mouth x 1 FLUCONAZOLE 24329204649 No Longer Active Jillina Frazell MOVING VAN DRIVER Active BUSPIRONE HCL 7.5 MG ORAL TABLET 1 pill twice daily, for anxiety BUSPIRONE HCL 13602577619 No Longer Active Jillina Frazell MOVING VAN DRIVER Active FLAGYL 500 MG ORAL TABLET 1 tab po bid for 7 days METRONIDAZOLE 50165735350 No Longer Active Jillina Fraalessandral MOVING VAN DRIVER Active PREDNISONE 20 MG ORAL TABLET 2 po qd x 3 days PREDNISONE 23198667722 No Longer Active Twin Franks MD Active AMOXICILLIN 500 MG ORAL CAPSULE 1 po TID x 10 days AMOXICILLIN 47334550634 No Longer Active Twin Franks MD Active CIPRO 500 MG ORAL TABLET 1 tablet by mouth twice daily CIPROFLOXACIN HCL 14504765397 No Longer Active Lev Huang MD Active FIORICET 325-50-40 MG TAB 1 tablet by mouth four times daily as needed 05/27 [id number] 88886792383 No Longer Active Lev Huang MD Active FLAGYL 500 MG ORAL TABLET 1 pill by mouth twice daily METRONIDAZOLE 95787533834 No Longer Active Karen Cummins MD PhD Active PREDNISONE 20 MG ORAL TABLET 2 tabs daily for 4 days, 1 tab daily for 4 days, 1/2 tab daily for 4 days PREDNISONE 90642000000 No Longer Active Karen Cummins MD PhD Active AMOXICILLIN 500 MG ORAL CAPSULE 2 po BID x 10 days AMOXICILLIN 65783801719 No Longer Active Twin Franks MD Active IBUPROFEN 800 MG ORAL TABLET 1 tab every 8 hours as needed 03/15 IBUPROFEN 52223122803 No Longer Active Twin Franks MD Active FLONASE 50 MCG/ACT NASAL SUSPENSION 2 puffs in each nostril daily FLUTICASONE PROPIONATE 83012887450 No Longer Active Twin Franks MD Active AMOXICILLIN 500 MG ORAL CAPSULE 2 po BID x 10 days AMOXICILLIN 79607456973 No Longer Active Twin Franks MD Active AMOXICILLIN 500 MG ORAL CAPSULE 2 po BID x 10 days AMOXICILLIN 14888329285 No Longer Active Twin Franks MD Active FLONASE 50 MCG/ACT NASAL SUSPENSION 2 puffs in each nostril daily FLONASE 50 MCG/ACT NASAL SUSPENSION 8769847 FLUTICASONE PROPIONATE Inactive IBUPROFEN 800 MG ORAL TABLET 1 tab every 8 hours as needed 03/15 IBUPROFEN 800 MG ORAL TABLET 374821 IBUPROFEN Inactive PREDNISONE 20 MG ORAL TABLET 2 tabs daily for 4 days, 1 tab daily for 4 days, 1/2 tab daily for 4 days PREDNISONE 20 MG ORAL TABLET 204458 PREDNISONE Inactive FIORICET 325-50-40 MG TAB 1 tablet by mouth four times daily as needed 05/27 FIORICET 325-50-40 MG TAB [id number] Inactive FLAGYL 500 MG ORAL TABLET 1 tab po bid for 7 days FLAGYL 500 MG ORAL TABLET 327673 METRONIDAZOLE Inactive BUSPIRONE HCL 7.5 MG ORAL TABLET 1 pill twice daily, for anxiety BUSPIRONE HCL 7.5 MG ORAL TABLET 736770 BUSPIRONE HCL Inactive DIFLUCAN 100 MG ORAL TABLET 1 tablet by mouth x 1 DIFLUCAN 100 MG ORAL TABLET 452164 FLUCONAZOLE Inactive CYCLOBENZAPRINE HCL 10 MG ORAL TABLET 1 tab po q pm, prn tamayo 10/11 CYCLOBENZAPRINE HCL 10 MG ORAL TABLET 760281 CYCLOBENZAPRINE HCL Inactive TRAMADOL HCL 50 MG ORAL TABLET 1-2 tablets every 6 hours as needed for pain TRAMADOL HCL 50 MG ORAL TABLET 988592 TRAMADOL HCL Inactive CIPRO 500 MG ORAL TABLET 1 tablet by mouth twice daily CIPRO 500 MG ORAL TABLET 995084 CIPROFLOXACIN HCL Inactive PHENAZOPYRIDINE HCL 100 MG ORAL TABLET 1 tab po bid PHENAZOPYRIDINE HCL 100 MG ORAL TABLET 4667492 PHENAZOPYRIDINE HCL Inactive AMOXICILLIN 500 MG ORAL CAPSULE 2 po BID x 10 days AMOXICILLIN 500 MG ORAL CAPSULE 377256 AMOXICILLIN Inactive AMOXICILLIN 500 MG ORAL CAPSULE 2 po BID x 10 days AMOXICILLIN 500 MG ORAL CAPSULE 608616 AMOXICILLIN Inactive AMOXICILLIN 500 MG ORAL CAPSULE 2 po BID x 10 days AMOXICILLIN 500 MG ORAL CAPSULE 139125 AMOXICILLIN Inactive FLAGYL 500 MG ORAL TABLET 1 pill by mouth twice daily FLAGYL 500 MG ORAL TABLET 323818 METRONIDAZOLE Inactive CIPRO 500 MG ORAL TABLET 1 tablet by mouth twice daily CIPRO 500 MG ORAL TABLET 816698 CIPROFLOXACIN HCL Inactive AMOXICILLIN 500 MG ORAL CAPSULE 1 po TID x 10 days AMOXICILLIN 500 MG ORAL CAPSULE 819835 AMOXICILLIN Inactive PREDNISONE 20 MG ORAL TABLET 2 po qd x 3 days PREDNISONE 20 MG ORAL TABLET 485750 PREDNISONE Inactive BACTRIM DS 800-160 MG ORAL TABLET 1 po BID x 7 days BACTRIM DS 800-160 MG ORAL TABLET 013481 SULFAMETHOXAZOLE-TRIMETHOPRIM Inactive Vital Signs Date Name Value [...] urine, semiquantitative Negative Negative Lab Report: Chlamydia/GC APTIMA/17093 - Lab chlamydia DNA probe NOT DETECTED NOT DETECTED chlamydia DNA probe NOT DETECTED NOT DETECTED chlamydia DNA probe NOT DETECTED NOT DETECTED Lab Report: Chlamydia/GC APTIMA/83288 - Microbiology Neisseria gonorrhoeae DNA probe NOT DETECTED NOT DETECTED Neisseria gonorrhoeae DNA probe NOT DETECTED NOT DETECTED Neisseria gonorrhoeae DNA probe NOT DETECTED NOT DETECTED Lab Report: Comp. Metabolic Panel, Free Thyroxine (L), Thyroid Stimulati ... - Chemistry sodium, serum 140 mmol/L 523-772 9286/08/16 carbon dioxide, venous blood 32.2 mmol/L 21.0-32.0 [...] 5.0-8.5 Encounters Code Encounter Date Provider Facility CPT-52036 Level 3 Est. 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 Patient 16:51:52 CDT Twin Franks MD [facility] CPT-93939 Level 3 Est. Patient 10:46:44 CDT Sasha Grande [facility] CPT-41371 Level 3 Est. Patient 11:22:49 CDT Sasha Grande [facility] CPT-02179 Level 4 Est. Patient 16:40:46 CDT Twin Franks MD [facility] CPT-23009 Level 3 Est. Patient 14:26:47 CDT Lev Huang MD [facility] CPT-08578 Level 3 Est. Patient 15:32:55 CDT Karen Cummins MD PhD [facility] CPT-50608 Level 3 Est. Patient 16:58:58 CDT Twin Franks MD [facility] CPT-44751 Level 3 Est. Patient 15:10:24 CDT Twin Franks MD [facility] CPT-92900 Level 3 Est. Patient 11:09:46 CASE LOADER OPERATOR Twin Franks MD [facility] CPT-12747 Level 3 Est. Patient 16:59:32 CASE LOADER OPERATOR Twin Franks MD [facility] Procedures Code Procedure Name Date Entry Date Standard Description CPT-24377 Spec Collection and Handling Fee 11:23:53 CASE LOADER OPERATOR CPT-63338 IM or SQ Injection 12:06:22 CDT CPT-J1885 Toradol 30 mg (Ketorolac) 11:30:17 CDT CPT-81999 Spec Collection and Handling Fee 16:40:47 CDT CPT-J1055 Depo Provera 150 mg (Medroxyprogesterone) 09:01:32 CDT CPT-30908 Abx/Therapy Injection 09:01:32 CDT CPT-59132 Abx/Therapy Injection 11:43:35 CDT CPT-J1055 Depo Provera 150 mg (Medroxyprogesterone) 15:22:54 CDT CPT-17831 Spec Collection and Handling Fee 15:10:24 CDT
--- OUTSIDE RECORDS SUMMARY | 2017-09-07 12:20 | XMS REPORT | Clinical Summary ---
Author Author Admin, MARY Organization [facility] Address Unknown Phone Unavailable Allergies, Adverse Reactions, [...] Headache Drug abuse 305.90 Active Jillina Frazell BUSINESS SUPPORT LIAISON Other, mixed, or unspecified drug abuse, unspecified use Anxiety 300.00 Active Jillina Frazell BUSINESS SUPPORT LIAISON Anxiety state, unspecified DYSURIA 788.1 Resolved Twin [...] x1. do not mix with ETOH METRONIDAZOLE 48969295908 Active Sasha Grande APRN Active MACROBID 100 MG ORAL CAPSULE 1 cap by mouth twice daily NITROFURANTOIN MONOHYD MACRO 86719295437 Active Sasha Grande APRN Active BACTRIM DS 800-160 MG ORAL TABLET 1 po BID x 7 days SULFAMETHOXAZOLE-TRIMETHOPRIM 42125497228 No Longer Active Twin Franks MD Active CELEXA 20 MG ORAL TABLET Take one tab po daily CITALOPRAM HYDROBROMIDE 03498627678 Active Twin Franks MD Active PHENAZOPYRIDINE HCL 100 MG ORAL TABLET 1 tab po bid PHENAZOPYRIDINE HCL 34920974162 No Longer Active Twin Franks MD Active CIPRO 500 MG ORAL TABLET 1 tablet by mouth twice daily CIPROFLOXACIN HCL 03790737522 No Longer Active Twin Franks MD Active TRAMADOL HCL 50 MG ORAL TABLET 1-2 tablets every 6 hours as needed for pain TRAMADOL HCL 74978249543 No Longer Active Jillina Frazell BUSINESS SUPPORT LIAISON Active CYCLOBENZAPRINE HCL 10 MG ORAL TABLET 1 tab po q pm, prn tamayo CYCLOBENZAPRINE HCL 56002868937 No Longer Active Jillina Frazell BUSINESS SUPPORT LIAISON Active DIFLUCAN 100 MG ORAL TABLET 1 tablet by mouth x 1 FLUCONAZOLE 20345208646 No Longer Active Jillina Frazell BUSINESS SUPPORT LIAISON Active BUSPIRONE HCL 7.5 MG ORAL TABLET 1 pill twice daily, for anxiety BUSPIRONE HCL 21320742144 No Longer Active Jillina Frazell BUSINESS SUPPORT LIAISON Active FLAGYL 500 MG ORAL TABLET 1 tab po bid for 7 days METRONIDAZOLE 36567939146 No Longer Active Jillina Fraalessandral BUSINESS SUPPORT LIAISON Active PREDNISONE 20 MG ORAL TABLET 2 po qd x 3 days PREDNISONE 60107871597 No Longer Active Twin Franks MD Active AMOXICILLIN 500 MG ORAL CAPSULE 1 po TID x 10 days AMOXICILLIN 60350122998 No Longer Active Twin Franks MD Active CIPRO 500 MG ORAL TABLET 1 tablet by mouth twice daily CIPROFLOXACIN HCL 26269785089 No Longer Active Lev Huang MD Active FIORICET 325-50-40 MG TAB 1 tablet by mouth four times daily as needed 05/27 [id number] 30983257901 No Longer Active Lev Huang MD Active FLAGYL 500 MG ORAL TABLET 1 pill by mouth twice daily METRONIDAZOLE 43866666088 No Longer Active Karen Cummins MD PhD Active PREDNISONE 20 MG ORAL TABLET 2 tabs daily for 4 days, 1 tab daily for 4 days, 1/2 tab daily for 4 days PREDNISONE 95631330567 No Longer Active Karen Cummins MD PhD Active AMOXICILLIN 500 MG ORAL CAPSULE 2 po BID x 10 days AMOXICILLIN 49975030089 No Longer Active Twin Frnaks MD Active IBUPROFEN 800 MG ORAL TABLET 1 tab every 8 hours as needed 03/15 IBUPROFEN 42373166392 No Longer Active Twin Franks MD Active FLONASE 50 MCG/ACT NASAL SUSPENSION 2 puffs in each nostril daily FLUTICASONE PROPIONATE 55744479148 No Longer Active Twin Franks MD Active AMOXICILLIN 500 MG ORAL CAPSULE 2 po BID x 10 days AMOXICILLIN 37883234590 No Longer Active Twin Franks MD Active AMOXICILLIN 500 MG ORAL CAPSULE 2 po BID x 10 days AMOXICILLIN 18386406709 No Longer Active Twin Franks MD Active FLONASE 50 MCG/ACT NASAL SUSPENSION 2 puffs in each nostril daily FLONASE 50 MCG/ACT NASAL SUSPENSION 5030775 FLUTICASONE PROPIONATE Inactive IBUPROFEN 800 MG ORAL TABLET 1 tab every 8 hours as needed 03/15 IBUPROFEN 800 MG ORAL TABLET 715245 IBUPROFEN Inactive PREDNISONE 20 MG ORAL TABLET 2 tabs daily for 4 days, 1 tab daily for 4 days, 1/2 tab daily for 4 days PREDNISONE 20 MG ORAL TABLET 106833 PREDNISONE Inactive FIORICET 325-50-40 MG TAB 1 tablet by mouth four times daily as needed 05/27 FIORICET 325-50-40 MG TAB [id number] Inactive FLAGYL 500 MG ORAL TABLET 1 tab po bid for 7 days FLAGYL 500 MG ORAL TABLET 852589 METRONIDAZOLE Inactive BUSPIRONE HCL 7.5 MG ORAL TABLET 1 pill twice daily, for anxiety BUSPIRONE HCL 7.5 MG ORAL TABLET 966155 BUSPIRONE HCL Inactive DIFLUCAN 100 MG ORAL TABLET 1 tablet by mouth x 1 DIFLUCAN 100 MG ORAL TABLET 969651 FLUCONAZOLE Inactive CYCLOBENZAPRINE HCL 10 MG ORAL TABLET 1 tab po q pm, prn tamayo 10/11 CYCLOBENZAPRINE HCL 10 MG ORAL TABLET 405256 CYCLOBENZAPRINE HCL Inactive TRAMADOL HCL 50 MG ORAL TABLET 1-2 tablets every 6 hours as needed for pain TRAMADOL HCL 50 MG ORAL TABLET 824395 TRAMADOL HCL Inactive CIPRO 500 MG ORAL TABLET 1 tablet by mouth twice daily CIPRO 500 MG ORAL TABLET 338723 CIPROFLOXACIN HCL Inactive PHENAZOPYRIDINE HCL 100 MG ORAL TABLET 1 tab po bid PHENAZOPYRIDINE HCL 100 MG ORAL TABLET 0194792 PHENAZOPYRIDINE HCL Inactive AMOXICILLIN 500 MG ORAL CAPSULE 2 po BID x 10 days AMOXICILLIN 500 MG ORAL CAPSULE 582736 AMOXICILLIN Inactive AMOXICILLIN 500 MG ORAL CAPSULE 2 po BID x 10 days AMOXICILLIN 500 MG ORAL CAPSULE 480122 AMOXICILLIN Inactive AMOXICILLIN 500 MG ORAL CAPSULE 2 po BID x 10 days AMOXICILLIN 500 MG ORAL CAPSULE 195858 AMOXICILLIN Inactive FLAGYL 500 MG ORAL TABLET 1 pill by mouth twice daily FLAGYL 500 MG ORAL TABLET 025055 METRONIDAZOLE Inactive CIPRO 500 MG ORAL TABLET 1 tablet by mouth twice daily CIPRO 500 MG ORAL TABLET 871086 CIPROFLOXACIN HCL Inactive AMOXICILLIN 500 MG ORAL CAPSULE 1 po TID x 10 days AMOXICILLIN 500 MG ORAL CAPSULE 044690 AMOXICILLIN Inactive PREDNISONE 20 MG ORAL TABLET 2 po qd x 3 days PREDNISONE 20 MG ORAL TABLET 653544 PREDNISONE Inactive BACTRIM DS 800-160 MG ORAL TABLET 1 po BID x 7 days BACTRIM DS 800-160 MG ORAL TABLET 718518 SULFAMETHOXAZOLE-TRIMETHOPRIM Inactive Vital Signs Date Name Value [...] urine, semiquantitative Negative Negative Lab Report: Chlamydia/GC APTIMA/92875 - Lab chlamydia DNA probe NOT DETECTED NOT DETECTED chlamydia DNA probe NOT DETECTED NOT DETECTED chlamydia DNA probe NOT DETECTED NOT DETECTED Lab Report: Chlamydia/GC APTIMA/21805 - Microbiology Neisseria gonorrhoeae DNA probe NOT DETECTED NOT DETECTED Neisseria gonorrhoeae DNA probe NOT DETECTED NOT DETECTED Neisseria gonorrhoeae DNA probe NOT DETECTED NOT DETECTED Lab Report: Comp. Metabolic Panel, Free Thyroxine (L), Thyroid Stimulati ... - Chemistry sodium, serum 140 mmol/L [phone]/08/16 carbon dioxide, venous blood 32.2 mmol/L 21.0-32.0 [...] 5.0-8.5 Encounters Code Encounter Date Provider Facility CPT-37446 Level 3 Est. 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 Patient 16:51:52 CDT Twin Franks MD [facility] CPT-86710 Level 3 Est. Patient 10:46:44 CDT Sasha Grande [facility] CPT-53964 Level 3 Est. Patient 11:22:49 CDT Sasha Grande [facility] CPT-12480 Level 4 Est. Patient 16:40:46 CDT Twin Franks MD [facility] CPT-31131 Level 3 Est. Patient 14:26:47 CDT Lev Huang MD [facility] CPT-46288 Level 3 Est. Patient 15:32:55 CDT Karen Cummins MD PhD [facility] CPT-54849 Level 3 Est. Patient 16:58:58 CDT Twin Franks MD [facility] CPT-11905 Level 3 Est. Patient 15:10:24 CDT Twin Franks MD [facility] CPT-17417 Level 3 Est. 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 Patient 16:59:32 MORTGAGE LOAN PROCESSOR Twin Franks MD [facility] Procedures Code Procedure Name Date Entry Date Standard Description CPT-68675 Spec Collection and Handling Fee 11:23:53 MORTGAGE LOAN PROCESSOR CPT-42727 IM or SQ Injection 12:06:22 CDT CPT-J1885 Toradol 30 mg (Ketorolac) 11:30:17 CDT CPT-43382 Spec Collection and Handling Fee 16:40:47 CDT CPT-J1055 Depo Provera 150 mg (Medroxyprogesterone) 09:01:32 CDT CPT-18372 Abx/Therapy Injection 09:01:32 CDT CPT-32043 Abx/Therapy Injection 11:43:35 CDT CPT-J1055 Depo Provera 150 mg (Medroxyprogesterone) 15:22:54 CDT CPT-13716 Spec Collection and Handling Fee 15:10:24 CDT
--- OUTSIDE RECORDS SUMMARY | 2017-09-07 12:21 | XMS REPORT | Clinical Summary ---
Author Author Admin, MARY Organization [facility] Address Unknown Phone Unavailable Allergies, Adverse [...] Headache Drug abuse 305.90 Active Jillina Frazell RIVETER Other, mixed, or unspecified drug abuse, unspecified use Anxiety 300.00 Active Jillina Frazell RIVETER Anxiety state, unspecified DYSURIA 788.1 Resolved Twin [...] x1. do not mix with ETOH METRONIDAZOLE 01455999849 Active Sasha Grande APRN Active MACROBID 100 MG ORAL CAPSULE 1 cap by mouth twice daily NITROFURANTOIN MONOHYD MACRO 46534861317 Active Sasha Grande APRN Active BACTRIM DS 800-160 MG ORAL TABLET 1 po BID x 7 days SULFAMETHOXAZOLE-TRIMETHOPRIM 14292816010 No Longer Active Twin Franks MD Active CELEXA 20 MG ORAL TABLET Take one tab po daily CITALOPRAM HYDROBROMIDE 77603477778 Active Twin Franks MD Active PHENAZOPYRIDINE HCL 100 MG ORAL TABLET 1 tab po bid PHENAZOPYRIDINE HCL 39632270801 No Longer Active Twin Franks MD Active CIPRO 500 MG ORAL TABLET 1 tablet by mouth twice daily CIPROFLOXACIN HCL 03466128586 No Longer Active Twin Franks MD Active TRAMADOL HCL 50 MG ORAL TABLET 1-2 tablets every 6 hours as needed for pain TRAMADOL HCL 12129075608 No Longer Active Jillina Frazell RIVETER Active CYCLOBENZAPRINE HCL 10 MG ORAL TABLET 1 tab po q pm, prn tamayo CYCLOBENZAPRINE HCL 76436004246 No Longer Active Jillina Frazell RIVETER Active DIFLUCAN 100 MG ORAL TABLET 1 tablet by mouth x 1 FLUCONAZOLE 50813342208 No Longer Active Jillina Frazell RIVETER Active BUSPIRONE HCL 7.5 MG ORAL TABLET 1 pill twice daily, for anxiety BUSPIRONE HCL 42862035545 No Longer Active Jillina Frazell RIVETER Active FLAGYL 500 MG ORAL TABLET 1 tab po bid for 7 days METRONIDAZOLE 81182589995 No Longer Active Jillina Fraalessandral RIVETER Active PREDNISONE 20 MG ORAL TABLET 2 po qd x 3 days PREDNISONE 78502121146 No Longer Active Twin Franks MD Active AMOXICILLIN 500 MG ORAL CAPSULE 1 po TID x 10 days AMOXICILLIN 53998133558 No Longer Active Twin Franks MD Active CIPRO 500 MG ORAL TABLET 1 tablet by mouth twice daily CIPROFLOXACIN HCL 99972788608 No Longer Active Lev Huang MD Active FIORICET 325-50-40 MG TAB 1 tablet by mouth four times daily as needed 05/27 [id number] 01594779719 No Longer Active Lev Huang MD Active FLAGYL 500 MG ORAL TABLET 1 pill by mouth twice daily METRONIDAZOLE 74477638263 No Longer Active Karen Cummins MD PhD Active PREDNISONE 20 MG ORAL TABLET 2 tabs daily for 4 days, 1 tab daily for 4 days, 1/2 tab daily for 4 days PREDNISONE 34260697029 No Longer Active Karen Cummins MD PhD Active AMOXICILLIN 500 MG ORAL CAPSULE 2 po BID x 10 days AMOXICILLIN 23806949532 No Longer Active Twin Franks MD Active IBUPROFEN 800 MG ORAL TABLET 1 tab every 8 hours as needed 03/15 IBUPROFEN 34791651526 No Longer Active Twin Franks MD Active FLONASE 50 MCG/ACT NASAL SUSPENSION 2 puffs in each nostril daily FLUTICASONE PROPIONATE 69692928549 No Longer Active Twin Franks MD Active AMOXICILLIN 500 MG ORAL CAPSULE 2 po BID x 10 days AMOXICILLIN 61057117146 No Longer Active Twin Franks MD Active AMOXICILLIN 500 MG ORAL CAPSULE 2 po BID x 10 days AMOXICILLIN 12170910605 No Longer Active Twin Franks MD Active FLONASE 50 MCG/ACT NASAL SUSPENSION 2 puffs in each nostril daily FLONASE 50 MCG/ACT NASAL SUSPENSION 1352471 FLUTICASONE PROPIONATE Inactive IBUPROFEN 800 MG ORAL TABLET 1 tab every 8 hours as needed 03/15 IBUPROFEN 800 MG ORAL TABLET 837825 IBUPROFEN Inactive PREDNISONE 20 MG ORAL TABLET 2 tabs daily for 4 days, 1 tab daily for 4 days, 1/2 tab daily for 4 days PREDNISONE 20 MG ORAL TABLET 540134 PREDNISONE Inactive FIORICET 325-50-40 MG TAB 1 tablet by mouth four times daily as needed 05/27 FIORICET 325-50-40 MG TAB [id number] Inactive FLAGYL 500 MG ORAL TABLET 1 tab po bid for 7 days FLAGYL 500 MG ORAL TABLET 746832 METRONIDAZOLE Inactive BUSPIRONE HCL 7.5 MG ORAL TABLET 1 pill twice daily, for anxiety BUSPIRONE HCL 7.5 MG ORAL TABLET 483025 BUSPIRONE HCL Inactive DIFLUCAN 100 MG ORAL TABLET 1 tablet by mouth x 1 DIFLUCAN 100 MG ORAL TABLET 322821 FLUCONAZOLE Inactive CYCLOBENZAPRINE HCL 10 MG ORAL TABLET 1 tab po q pm, prn tamayo 10/11 CYCLOBENZAPRINE HCL 10 MG ORAL TABLET 133816 CYCLOBENZAPRINE HCL Inactive TRAMADOL HCL 50 MG ORAL TABLET 1-2 tablets every 6 hours as needed for pain TRAMADOL HCL 50 MG ORAL TABLET 290614 TRAMADOL HCL Inactive CIPRO 500 MG ORAL TABLET 1 tablet by mouth twice daily CIPRO 500 MG ORAL TABLET 928110 CIPROFLOXACIN HCL Inactive PHENAZOPYRIDINE HCL 100 MG ORAL TABLET 1 tab po bid PHENAZOPYRIDINE HCL 100 MG ORAL TABLET 1690764 PHENAZOPYRIDINE HCL Inactive AMOXICILLIN 500 MG ORAL CAPSULE 2 po BID x 10 days AMOXICILLIN 500 MG ORAL CAPSULE 861884 AMOXICILLIN Inactive AMOXICILLIN 500 MG ORAL CAPSULE 2 po BID x 10 days AMOXICILLIN 500 MG ORAL CAPSULE 342596 AMOXICILLIN Inactive AMOXICILLIN 500 MG ORAL CAPSULE 2 po BID x 10 days AMOXICILLIN 500 MG ORAL CAPSULE 803257 AMOXICILLIN Inactive FLAGYL 500 MG ORAL TABLET 1 pill by mouth twice daily FLAGYL 500 MG ORAL TABLET 338926 METRONIDAZOLE Inactive CIPRO 500 MG ORAL TABLET 1 tablet by mouth twice daily CIPRO 500 MG ORAL TABLET 647466 CIPROFLOXACIN HCL Inactive AMOXICILLIN 500 MG ORAL CAPSULE 1 po TID x 10 days AMOXICILLIN 500 MG ORAL CAPSULE 523313 AMOXICILLIN Inactive PREDNISONE 20 MG ORAL TABLET 2 po qd x 3 days PREDNISONE 20 MG ORAL TABLET 000075 PREDNISONE Inactive BACTRIM DS 800-160 MG ORAL TABLET 1 po BID x 7 days BACTRIM DS 800-160 MG ORAL TABLET 451704 SULFAMETHOXAZOLE-TRIMETHOPRIM Inactive Vital Signs Date Name Value [...] urine, semiquantitative Negative Negative Lab Report: Chlamydia/GC APTIMA/33522 - Lab chlamydia DNA probe NOT DETECTED NOT DETECTED chlamydia DNA probe NOT DETECTED NOT DETECTED chlamydia DNA probe NOT DETECTED NOT DETECTED Lab Report: Chlamydia/GC APTIMA/78190 - Microbiology Neisseria gonorrhoeae DNA probe NOT DETECTED NOT DETECTED Neisseria gonorrhoeae DNA probe NOT DETECTED NOT DETECTED Neisseria gonorrhoeae DNA probe NOT DETECTED NOT DETECTED Lab Report: Comp. Metabolic Panel, Free Thyroxine (L), Thyroid Stimulati ... - Chemistry sodium, serum 140 mmol/L [phone]/08/16 carbon dioxide, venous blood 32.2 mmol/L 21.0-32.0 [...] 5.0-8.5 Encounters Code Encounter Date Provider Facility CPT-33533 Level 3 Est. 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 Patient 16:51:52 CDT Twin Franks MD [facility] CPT-79114 Level 3 Est. Patient 10:46:44 CDT Sasha Grande [facility] CPT-31202 Level 3 Est. Patient 11:22:49 CDT Sasha Grande [facility] CPT-97592 Level 4 Est. Patient 16:40:46 CDT Twin Franks MD [facility] CPT-43524 Level 3 Est. Patient 14:26:47 CDT Lev Huang MD [facility] CPT-15232 Level 3 Est. Patient 15:32:55 CDT Karen Cummins MD PhD [facility] CPT-23121 Level 3 Est. Patient 16:58:58 CDT Twin Franks MD [facility] CPT-43667 Level 3 Est. Patient 15:10:24 CDT Twin Franks MD [facility] CPT-55241 Level 3 Est. Patient 11:09:46 PROTECTIVE SIGNAL OPERATIONS SUPERVISOR Twin Franks MD [facility] CPT-24399 Level 3 Est. Patient 16:59:32 PROTECTIVE SIGNAL OPERATIONS SUPERVISOR Twin Franks MD [facility] Procedures Code Procedure Name Date Entry Date Standard Description CPT-16783 Spec Collection and Handling Fee 11:23:53 PROTECTIVE SIGNAL OPERATIONS SUPERVISOR CPT-12932 IM or SQ Injection 12:06:22 CDT CPT-J1885 Toradol 30 mg (Ketorolac) 11:30:17 CDT CPT-87268 Spec Collection and Handling Fee 16:40:47 CDT CPT-J1055 Depo Provera 150 mg (Medroxyprogesterone) 09:01:32 CDT CPT-70531 Abx/Therapy Injection 09:01:32 CDT CPT-15868 Abx/Therapy Injection 11:43:35 CDT CPT-J1055 Depo Provera 150 mg (Medroxyprogesterone) 15:22:54 CDT CPT-79803 Spec Collection and Handling Fee 15:10:24 CDT
--- OUTSIDE RECORDS SUMMARY | 2017-09-07 12:21 | XMS REPORT | Clinical Summary ---
Author Author Admin, MARY Organization [facility] Address Unknown Phone Unavailable Allergies, [...] tab po bid for 7 days METRONIDAZOLE 99841570262 Active Twin Franks MD Active PREDNISONE 20 MG ORAL TABS 2 po qd x 3 days PREDNISONE 71165646753 No Longer Active Twin Franks MD Active AMOXICILLIN 500 MG ORAL CAPS 1 po TID x 10 days AMOXICILLIN 71426334831 No Longer Active Twin Franks MD Active CIPRO 500 MG TAB 1 tablet by mouth twice daily CIPROFLOXACIN HCL 05331343052 No Longer Active Lev Huang MD Active FIORICET 325-50-40 MG TAB 1 tablet by mouth four times daily as needed 05/27 [id number] 02125458993 No Longer Active Lev Huang MD Active FLAGYL 500 MG TABS 1 pill by mouth twice daily METRONIDAZOLE 26852933551 No Longer Active Karen Cummins MD PhD Active PREDNISONE 20 MG TAB 2 tabs daily for 4 days, 1 tab daily for 4 days, 1/2 tab daily for 4 days PREDNISONE 82489509024 No Longer Active Karen Cummins MD PhD Active AMOXICILLIN 500 MG CAPS 2 po BID x 10 days AMOXICILLIN 03546948466 No Longer Active Twin Franks MD Active IBUPROFEN 800 MG TABS 1 tab every 8 hours as needed IBUPROFEN 81308398049 No Longer Active Twin Franks MD Active FLONASE 50 MCG/ACT SUSP 2 puffs in each nostril daily FLUTICASONE PROPIONATE 44320883637 No Longer Active Twin Franks MD Active AMOXICILLIN 500 MG CAPS 2 po BID x 10 days AMOXICILLIN 33994168667 No Longer Active Twin Franks MD Active AMOXICILLIN 500 MG CAPS 2 po BID x 10 days AMOXICILLIN 26876099484 No Longer Active Twin Franks MD Active FLONASE 50 MCG/ACT SUSP 2 puffs in each nostril daily FLONASE 50 MCG/ACT SUSP 3590287 FLUTICASONE PROPIONATE Inactive IBUPROFEN 800 MG TABS 1 tab every 8 hours as needed IBUPROFEN 800 MG TABS 537352 IBUPROFEN Inactive PREDNISONE 20 MG TAB 2 tabs daily for 4 days, 1 tab daily for 4 days, 1/2 tab daily for 4 days PREDNISONE 20 MG TAB 050120 PREDNISONE Inactive FIORICET 325-50-40 MG TAB 1 tablet by mouth four times daily as needed 05/27 FIORICET 325-50-40 MG TAB [id number] Inactive AMOXICILLIN 500 MG CAPS 2 po BID x 10 days AMOXICILLIN 500 MG CAPS 823303 AMOXICILLIN Inactive AMOXICILLIN 500 MG CAPS 2 po BID x 10 days AMOXICILLIN 500 MG CAPS 489412 AMOXICILLIN Inactive AMOXICILLIN 500 MG CAPS 2 po BID x 10 days AMOXICILLIN 500 MG CAPS 960114 AMOXICILLIN Inactive FLAGYL 500 MG TABS 1 pill by mouth twice daily FLAGYL 500 MG TABS 535589 METRONIDAZOLE Inactive CIPRO 500 MG TAB 1 tablet by mouth twice daily CIPRO 500 MG TAB 703353 CIPROFLOXACIN HCL Inactive AMOXICILLIN 500 MG ORAL CAPS 1 po TID x 10 days AMOXICILLIN 500 MG ORAL CAPS 534581 AMOXICILLIN Inactive PREDNISONE 20 MG ORAL TABS 2 po qd x 3 days PREDNISONE 20 MG ORAL TABS 014300 PREDNISONE Inactive Vital Signs Date Name Value [...] Value Unit Range Description Lab Report: Chlamydia/GC APTIMA/78030 - Lab chlamydia DNA probe NOT DETECTED NOT DETECTED Lab Report: Chlamydia/GC APTIMA/35628 - Microbiology Neisseria gonorrhoeae DNA probe NOT DETECTED NOT DETECTED Encounters Code Encounter Date Provider Facility CPT-13096 Level 4 Est. Patient 16:40:46 CDT Twin Franks MD [facility] CPT-21481 Level 3 Est. Patient 14:26:47 CDT Lev Huang MD [facility] CPT-97757 Level 3 Est. Patient 15:32:55 CDT Karen Cummins MD PhD [facility] CPT-49463 Level 3 Est. Patient 16:58:58 CDT Twin Franks MD [facility] CPT-85725 Level 3 Est. Patient 15:10:24 CDT Twin Franks MD [facility] CPT-99243 Level 3 Est. 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 CPT-00920 Level 3 Est. Patient 16:59:32 DIABETES CLINICAL MANAGER Twin Franks MD [facility] Procedures Code Procedure Name Date Entry Date Standard Description CPT-30171 Spec Collection and Handling Fee 16:40:47 CDT CPT-J1055 Depo Provera 150 mg (Medroxyprogesterone) 09:01:32 CDT CPT-27045 Abx/Therapy Injection 09:01:32 CDT CPT-44135 Abx/Therapy Injection 11:43:35 CDT CPT-J1055 Depo Provera 150 mg (Medroxyprogesterone) 15:22:54 CDT [facility]-33046 Spec Collection and Handling Fee 15:10:24 CDT
--- OUTSIDE RECORDS SUMMARY | 2017-09-07 12:22 | XMS REPORT | Clinical Summary ---
Author Author Admin, MARY Organization [facility] Address Unknown Phone Unavailable Allergies, Adverse Reactions, [...] Headache Drug abuse 305.90 Active Jillina Frazell BREAD DISTRIBUTOR Other, mixed, or unspecified drug abuse, unspecified use Anxiety 300.00 Active Jillina Frazell BREAD DISTRIBUTOR Anxiety state, unspecified DYSURIA 788.1 Resolved Twin Frnaks MD Dysuria Urinary tract infection 599.0 Active [...] 1 po BID x 7 days SULFAMETHOXAZOLE-TRIMETHOPRIM 57052574361 Active Twin Franks MD Active CELEXA 20 MG ORAL TABLET Take one tab po daily CITALOPRAM HYDROBROMIDE 50660693165 Active Twin Franks MD Active PHENAZOPYRIDINE HCL 100 MG ORAL TABS 1 tab po bid PHENAZOPYRIDINE HCL 22349661252 No Longer Active Twin Franks MD Active CIPRO 500 MG TAB 1 tablet by mouth twice daily CIPROFLOXACIN HCL 47860526645 No Longer Active Twin Franks MD Active TRAMADOL HCL 50 MG TABS 1-2 tablets every 6 hours as needed for pain TRAMADOL HCL 05299766490 No Longer Active Jillina Frazell BREAD DISTRIBUTOR Active CYCLOBENZAPRINE HCL 10 MG TABS 1 tab po q pm, prn tamayo CYCLOBENZAPRINE HCL 61875973471 No Longer Active Jillina Frazell BREAD DISTRIBUTOR Active DIFLUCAN 100 MG TAB 1 tablet by mouth x 1 FLUCONAZOLE 81007023075 No Longer Active Jillina Frazell BREAD DISTRIBUTOR Active BUSPIRONE HCL 7.5 MG ORAL TABS 1 pill twice daily, for anxiety BUSPIRONE HCL 91778951358 No Longer Active Jillina Frazell BREAD DISTRIBUTOR Active FLAGYL 500 MG ORAL TABS 1 tab po bid for 7 days METRONIDAZOLE 65229656430 No Longer Active Jillina Fraalessandral BREAD DISTRIBUTOR Active PREDNISONE 20 MG ORAL TABS 2 po qd x 3 days PREDNISONE 57826850581 No Longer Active Twin Franks MD Active AMOXICILLIN 500 MG ORAL CAPS 1 po TID x 10 days AMOXICILLIN 90979069886 No Longer Active Twin Franks MD Active CIPRO 500 MG TAB 1 tablet by mouth twice daily CIPROFLOXACIN HCL 54124712507 No Longer Active Lev Huang MD Active FIORICET 325-50-40 MG TAB 1 tablet by mouth four times daily as needed 05/27 [id number] 31538035180 No Longer Active Lev Huang MD Active FLAGYL 500 MG TABS 1 pill by mouth twice daily METRONIDAZOLE 68760698672 No Longer Active Karen Cummins MD PhD Active PREDNISONE 20 MG TAB 2 tabs daily for 4 days, 1 tab daily for 4 days, 1/2 tab daily for 4 days PREDNISONE 19637945772 No Longer Active Karen Cummins MD PhD Active AMOXICILLIN 500 MG CAPS 2 po BID x 10 days AMOXICILLIN 94426826619 No Longer Active Twin Franks MD Active IBUPROFEN 800 MG TABS 1 tab every 8 hours as needed IBUPROFEN 83782917939 No Longer Active Twin Franks MD Active FLONASE 50 MCG/ACT SUSP 2 puffs in each nostril daily FLUTICASONE PROPIONATE 39599797614 No Longer Active Twin Franks MD Active AMOXICILLIN 500 MG CAPS 2 po BID x 10 days AMOXICILLIN 22635644573 No Longer Active Twin Franks MD Active AMOXICILLIN 500 MG CAPS 2 po BID x 10 days AMOXICILLIN 27659938434 No Longer Active Twin Franks MD Active FLONASE 50 MCG/ACT SUSP 2 puffs in each nostril daily FLONASE 50 MCG/ACT SUSP 5032236 FLUTICASONE PROPIONATE Inactive IBUPROFEN 800 MG TABS 1 tab every 8 hours as needed IBUPROFEN 800 MG TABS 109797 IBUPROFEN Inactive PREDNISONE 20 MG TAB 2 tabs daily for 4 days, 1 tab daily for 4 days, 1/2 tab daily for 4 days PREDNISONE 20 MG TAB 152492 PREDNISONE Inactive FIORICET 325-50-40 MG TAB 1 tablet by mouth four times daily as needed 05/27 FIORICET 325-50-40 MG TAB [id number] Inactive FLAGYL 500 MG ORAL TABS 1 tab po bid for 7 days FLAGYL 500 MG ORAL TABS 969661 METRONIDAZOLE Inactive BUSPIRONE HCL 7.5 MG ORAL TABS 1 pill twice daily, for anxiety BUSPIRONE HCL 7.5 MG ORAL TABS 169010 BUSPIRONE HCL Inactive DIFLUCAN 100 MG TAB 1 tablet by mouth x 1 DIFLUCAN 100 MG TAB 402686 FLUCONAZOLE Inactive CYCLOBENZAPRINE HCL 10 MG TABS 1 tab po q pm, prn tamayo CYCLOBENZAPRINE HCL 10 MG TABS 531525 CYCLOBENZAPRINE HCL Inactive TRAMADOL HCL 50 MG TABS 1-2 tablets every 6 hours as needed for pain TRAMADOL HCL 50 MG TABS 836383 TRAMADOL HCL Inactive CIPRO 500 MG TAB 1 tablet by mouth twice daily CIPRO 500 MG TAB 043032 CIPROFLOXACIN HCL Inactive PHENAZOPYRIDINE HCL 100 MG ORAL TABS 1 tab po bid PHENAZOPYRIDINE HCL 100 MG ORAL TABS 0549388 PHENAZOPYRIDINE HCL Inactive AMOXICILLIN 500 MG CAPS 2 po BID x 10 days AMOXICILLIN 500 MG CAPS 381120 AMOXICILLIN Inactive AMOXICILLIN 500 MG CAPS 2 po BID x 10 days AMOXICILLIN 500 MG CAPS 633238 AMOXICILLIN Inactive AMOXICILLIN 500 MG CAPS 2 po BID x 10 days AMOXICILLIN 500 MG CAPS 775952 AMOXICILLIN Inactive FLAGYL 500 MG TABS 1 pill by mouth twice daily FLAGYL 500 MG TABS 609102 METRONIDAZOLE Inactive CIPRO 500 MG TAB 1 tablet by mouth twice daily CIPRO 500 MG TAB 603530 CIPROFLOXACIN HCL Inactive AMOXICILLIN 500 MG ORAL CAPS 1 po TID x 10 days AMOXICILLIN 500 MG ORAL CAPS 063180 AMOXICILLIN Inactive PREDNISONE 20 MG ORAL TABS 2 po qd x 3 days PREDNISONE 20 MG ORAL TABS 014562 PREDNISONE Inactive Vital Signs Date Name Value [...] urine, semiquantitative Negative Negative Lab Report: Chlamydia/GC APTIMA/10709 - Lab chlamydia DNA probe NOT DETECTED NOT DETECTED chlamydia DNA probe NOT DETECTED NOT DETECTED Lab Report: Chlamydia/GC APTIMA/78285 - Microbiology Neisseria gonorrhoeae DNA probe NOT DETECTED NOT DETECTED Neisseria gonorrhoeae DNA probe NOT DETECTED NOT DETECTED Lab Report: Comp. Metabolic Panel, Free Thyroxine (L), Thyroid Stimulati ... - Chemistry sodium, serum 140 mmol/L [phone]/08/16 carbon dioxide, venous blood 32.2 mmol/L 21.0-32.0 [...] substance Colorless;Lightyellow;Straw;Yellow appearance, urine orange hazy Clear Encounters Code Encounter Date Provider Facility CPT-79815 Level 3 Est. Patient 16:51:52 CDT Twin Franks MD [facility] CPT-95568 Level 3 Est. Patient 10:46:44 CDT Sasha Grande [facility] CPT-80751 Level 3 Est. Patient 11:22:49 CDT Sasha Grande [facility] CPT-82739 Level 4 Est. Patient 16:40:46 CDT Twin Franks MD [facility] CPT-16903 Level 3 Est. Patient 14:26:47 CDT Lev Huang MD [facility] CPT-92366 Level 3 Est. Patient 15:32:55 CDT Karen Cummins MD PhD [facility] CPT-41981 Level 3 Est. Patient 16:58:58 CDT Twin Franks MD [facility] CPT-96397 Level 3 Est. Patient 15:10:24 CDT Twin Franks MD [facility] CPT-97785 Level 3 Est. 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 Patient 16:59:32 TECHNICAL BUSINESS ANALYST Twin Franks MD [facility] Procedures Code Procedure Name Date Entry Date Standard Description CPT-04256 IM or SQ Injection 12:06:22 CDT CPT-J1885 Toradol 30 mg (Ketorolac) 11:30:17 CDT CPT-20184 Spec Collection and Handling Fee 16:40:47 CDT CPT-J1055 Depo Provera 150 mg (Medroxyprogesterone) 09:01:32 CDT CPT-84655 Abx/Therapy Injection 09:01:32 CDT CPT-01371 Abx/Therapy Injection 11:43:35 CDT CPT-J1055 Depo Provera 150 mg (Medroxyprogesterone) 15:22:54 CDT CPT-31352 Spec Collection and Handling Fee 15:10:24 CDT
--- OUTSIDE RECORDS SUMMARY | 2017-09-07 12:22 | XMS REPORT ---
Author Author [facility] Medical Staff Organization [facility] Address [address] [place], [place] [address] Phone [phone] Care Team Providers Care Manual Qa Tester Name Role Phone SHWETA GARCIA MD PP [phone] Summary purpose CCDA Sent to [facility] Chief Complaint and Reason for Visit No [...] for this patient visit History of procedures No procedures recorded for this patient visit. Functional status No functional or cognitive status [...]
--- OUTSIDE RECORDS SUMMARY | 2017-09-07 12:23 | XMS REPORT | Clinical Summary ---
Author Author Admin, AMRY Organization [facility] Address Unknown Phone Unavailable Allergies, Adverse Reactions, [...] Headache Drug abuse 305.90 Active Jillina Frazell PLASTICS BENCH MECHANIC Other, mixed, or unspecified drug abuse, unspecified use Anxiety 300.00 Active Jillina Shamirl [employer] BENCH MECHANIC Anxiety state, unspecified DYSURIA 788.1 Active Jimarcial [...] TABS 1 tab po bid PHENAZOPYRIDINE HCL 41594261766 Active Aylaina Harjinder VENEGASN Active CIPRO 500 MG TAB 1 tablet by mouth twice daily CIPROFLOXACIN HCL 74211145017 Active Geraldllina Shamirl [employer] BENCH MECHANIC Active TRAMADOL HCL 50 MG TABS 1-2 tablets every 6 hours as needed for pain TRAMADOL HCL 48599950118 No Longer Active Geraldllina Shamirl [employer] BENCH MECHANIC Active CYCLOBENZAPRINE HCL 10 MG TABS 1 tab po q pm, prn tamayo CYCLOBENZAPRINE HCL 75723177487 No Longer Active Geraldllina Shamirl PLASTICS BENCH MECHANIC Active DIFLUCAN 100 MG TAB 1 tablet by mouth x 1 FLUCONAZOLE 63838434894 No Longer Active Jillina Fraalessandral PLAST[employer] BENCH MECHANIC Active BUSPIRONE HCL 7.5 MG ORAL TABS 1 pill twice daily, for anxiety BUSPIRONE HCL 46140079530 No Longer Active Jillina Fraalessandral PLASTICS BENCH MECHANIC Active FLAGYL 500 MG ORAL TABS 1 tab po bid for 7 days METRONIDAZOLE 62377516160 No Longer Active Jillina Frazell PLASTICS BENCH MECHANIC Active PREDNISONE 20 MG ORAL TABS 2 po qd x 3 days PREDNISONE 99580858165 No Longer Active Twin Franks MD Active AMOXICILLIN 500 MG ORAL CAPS 1 po TID x 10 days AMOXICILLIN 07556679194 No Longer Active Twin Franks MD Active CIPRO 500 MG TAB 1 tablet by mouth twice daily CIPROFLOXACIN HCL 13685500278 No Longer Active Lev Huang MD Active FIORICET 325-50-40 MG TAB 1 tablet by mouth four times daily as needed 05/27 [id number] 77154264899 No Longer Active Lev Huang MD Active FLAGYL 500 MG TABS 1 pill by mouth twice daily METRONIDAZOLE 33060323764 No Longer Active Karen Cummins MD PhD Active PREDNISONE 20 MG TAB 2 tabs daily for 4 days, 1 tab daily for 4 days, 1/2 tab daily for 4 days PREDNISONE 08386526934 No Longer Active Karen Cummins MD PhD Active AMOXICILLIN 500 MG CAPS 2 po BID x 10 days AMOXICILLIN 23123961618 No Longer Active Twin Franks MD Active IBUPROFEN 800 MG TABS 1 tab every 8 hours as needed IBUPROFEN 13920724815 No Longer Active Twin Franks MD Active FLONASE 50 MCG/ACT SUSP 2 puffs in each nostril daily FLUTICASONE PROPIONATE 75793260491 No Longer Active Twin Franks MD Active AMOXICILLIN 500 MG CAPS 2 po BID x 10 days AMOXICILLIN 16441684891 No Longer Active Twin Franks MD Active AMOXICILLIN 500 MG CAPS 2 po BID x 10 days AMOXICILLIN 68316646711 No Longer Active Twin Franks MD Active FLONASE 50 MCG/ACT SUSP 2 puffs in each nostril daily FLONASE 50 MCG/ACT SUSP 3196812 FLUTICASONE PROPIONATE Inactive IBUPROFEN 800 MG TABS 1 tab every 8 hours as needed IBUPROFEN 800 MG TABS 521246 IBUPROFEN Inactive PREDNISONE 20 MG TAB 2 tabs daily for 4 days, 1 tab daily for 4 days, 1/2 tab daily for 4 days PREDNISONE 20 MG TAB 396500 PREDNISONE Inactive FIORICET 325-50-40 MG TAB 1 tablet by mouth four times daily as needed 05/27 FIORICET 325-50-40 MG TAB [id number] Inactive FLAGYL 500 MG ORAL TABS 1 tab po bid for 7 days FLAGYL 500 MG ORAL TABS 079234 METRONIDAZOLE Inactive BUSPIRONE HCL 7.5 MG ORAL TABS 1 pill twice daily, for anxiety BUSPIRONE HCL 7.5 MG ORAL TABS 474727 BUSPIRONE HCL Inactive DIFLUCAN 100 MG TAB 1 tablet by mouth x 1 DIFLUCAN 100 MG TAB 757761 FLUCONAZOLE Inactive CYCLOBENZAPRINE HCL 10 MG TABS 1 tab po q pm, prn tamayo CYCLOBENZAPRINE HCL 10 MG TABS 932252 CYCLOBENZAPRINE HCL Inactive TRAMADOL HCL 50 MG TABS 1-2 tablets every 6 hours as needed for pain TRAMADOL HCL 50 MG TABS 740865 TRAMADOL HCL Inactive AMOXICILLIN 500 MG CAPS 2 po BID x 10 days AMOXICILLIN 500 MG CAPS 281110 AMOXICILLIN Inactive AMOXICILLIN 500 MG CAPS 2 po BID x 10 days AMOXICILLIN 500 MG CAPS 918420 AMOXICILLIN Inactive AMOXICILLIN 500 MG CAPS 2 po BID x 10 days AMOXICILLIN 500 MG CAPS 872837 AMOXICILLIN Inactive FLAGYL 500 MG TABS 1 pill by mouth twice daily FLAGYL 500 MG TABS 229693 METRONIDAZOLE Inactive CIPRO 500 MG TAB 1 tablet by mouth twice daily CIPRO 500 MG TAB 381662 CIPROFLOXACIN HCL Inactive AMOXICILLIN 500 MG ORAL CAPS 1 po TID x 10 days AMOXICILLIN 500 MG ORAL CAPS 260223 AMOXICILLIN Inactive PREDNISONE 20 MG ORAL TABS 2 po qd x 3 days PREDNISONE 20 MG ORAL TABS 779834 PREDNISONE Inactive Vital Signs Date Name Value [...] urine, semiquantitative Negative Negative Lab Report: Chlamydia/GC APTIMA/48831 - Lab chlamydia DNA probe NOT DETECTED NOT DETECTED chlamydia DNA probe NOT DETECTED NOT DETECTED Lab Report: Chlamydia/GC APTIMA/68172 - Microbiology Neisseria gonorrhoeae DNA probe NOT DETECTED NOT DETECTED Neisseria gonorrhoeae DNA probe NOT DETECTED NOT DETECTED Lab Report: Comp. Metabolic Panel, Free Thyroxine (L), Thyroid Stimulati ... - Chemistry sodium, serum 140 mmol/L [phone]/08/16 carbon dioxide, venous blood 32.2 mmol/L 21.0-32.0 [...] 0.36-3.74 Encounters Code Encounter Date Provider Facility CPT-18678 Level 3 Est. Patient 10:46:44 CDT Sasha Grande [facility] CPT-45960 Level 3 Est. Patient 11:22:49 CDT Sasha Grande [facility] [place] CPT-87738 Level 4 Est. Patient 16:40:46 CDT Twin Franks MD [facility] CPT-69431 Level 3 Est. Patient 14:26:47 CDT Lev Huang MD [facility] CPT-67888 Level 3 Est. Patient 15:32:55 CDT Karen Cummins MD PhD [facility] CPT-54985 Level 3 Est. Patient 16:58:58 CDT Twin Franks MD [facility] CPT-42943 Level 3 Est. Patient 15:10:24 CDT Twin Franks MD [facility] CPT-70003 Level 3 Est. Patient 11:09:46 DIRECTOR PROCESS Twin Franks MD [facility] CPT-33542 Level 3 Est. Patient 16:59:32 DIRECTOR PROCESS Twin Franks MD [facility] Procedures Code Procedure Name Date Entry Date Standard Description CPT-02867 IM or SQ Injection 12:06:22 CDT CPT-J1885 Toradol 30 mg (Ketorolac) 11:30:17 CDT CPT-79380 Spec Collection and Handling Fee 16:40:47 CDT CPT-J1055 Depo Provera 150 mg (Medroxyprogesterone) 09:01:32 CDT CPT-25975 Abx/Therapy Injection 09:01:32 CDT CPT-86653 Abx/Therapy Injection 11:43:35 CDT CPT-J1055 Depo Provera 150 mg (Medroxyprogesterone) 15:22:54 CDT CPT-14453 Spec Collection and Handling Fee 15:10:24 CDT
--- OUTSIDE RECORDS SUMMARY | 2017-09-07 12:23 | XMS REPORT | Clinical Summary ---
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 do not mix with ETOH METRONIDAZOLE 80452553785 Active Sasha Grande APRN Active MACROBID 100 MG CAP 1 cap by mouth twice daily NITROFURANTOIN MONOHYD MACRO 65680324449 Active Sasha Grande APRN Active BACTRIM DS 800-160 MG ORAL TABS 1 po BID x 7 days SULFAMETHOXAZOLE-TRIMETHOPRIM 50099948833 No Longer Active Twin Franks MD Active CELEXA 20 MG ORAL TABLET Take one tab po daily CITALOPRAM HYDROBROMIDE 87545386526 Active Twin Franks MD Active PHENAZOPYRIDINE HCL 100 MG ORAL TABS 1 tab po bid PHENAZOPYRIDINE HCL 65306471486 No Longer Active Twin Franks MD Active CIPRO 500 MG TAB 1 tablet by mouth twice daily CIPROFLOXACIN HCL 34503055060 No Longer Active Twin Franks MD Active TRAMADOL HCL 50 MG TABS 1-2 tablets every 6 hours as needed for pain TRAMADOL HCL 22182959212 No Longer Active Jillina Frazell MULTINEEDLE SHIRRER Active CYCLOBENZAPRINE HCL 10 MG TABS 1 tab po q pm, prn tamayo CYCLOBENZAPRINE HCL 67165540769 No Longer Active Jillina Frazell MULTINEEDLE SHIRRER Active DIFLUCAN 100 MG TAB 1 tablet by mouth x 1 FLUCONAZOLE 62480534620 No Longer Active Jillina Frazell MULTINEEDLE SHIRRER Active BUSPIRONE HCL 7.5 MG ORAL TABS 1 pill twice daily, for anxiety BUSPIRONE HCL 49623336246 No Longer Active Jillina Frazell MULTINEEDLE SHIRRER Active FLAGYL 500 MG ORAL TABS 1 tab po bid for 7 days METRONIDAZOLE 79841263676 No Longer Active Jillina Frazell MULTINEEDLE SHIRRER Active PREDNISONE 20 MG ORAL TABS 2 po qd x 3 days PREDNISONE 04208584313 No Longer Active Twin Franks MD Active AMOXICILLIN 500 MG ORAL CAPS 1 po TID x 10 days AMOXICILLIN 56578686532 No Longer Active Twin Franks MD Active CIPRO 500 MG TAB 1 tablet by mouth twice daily CIPROFLOXACIN HCL 53333736199 No Longer Active Lev Huang MD Active FIORICET 325-50-40 MG TAB 1 tablet by mouth four times daily as needed 05/27 [id number] 21820527551 No Longer Active Lev Huang MD Active FLAGYL 500 MG TABS 1 pill by mouth twice daily METRONIDAZOLE 69224086860 No Longer Active Karen Cummins MD PhD Active PREDNISONE 20 MG TAB 2 tabs daily for 4 days, 1 tab daily for 4 days, 1/2 tab daily for 4 days PREDNISONE 27402408387 No Longer Active Karen Cummins MD PhD Active AMOXICILLIN 500 MG CAPS 2 po BID x 10 days AMOXICILLIN 33924344658 No Longer Active Twin Franks MD Active IBUPROFEN 800 MG TABS 1 tab every 8 hours as needed IBUPROFEN 55856444112 No Longer Active Twin Franks MD Active FLONASE 50 MCG/ACT SUSP 2 puffs in each nostril daily FLUTICASONE PROPIONATE 64680231192 No Longer Active Twin Franks MD Active AMOXICILLIN 500 MG CAPS 2 po BID x 10 days AMOXICILLIN 66957794807 No Longer Active Twin Franks MD Active AMOXICILLIN 500 MG CAPS 2 po BID x 10 days AMOXICILLIN 34630878776 No Longer Active Twin Franks MD Active FLONASE 50 MCG/ACT SUSP 2 puffs in each nostril daily FLONASE 50 MCG/ACT SUSP 6217898 FLUTICASONE PROPIONATE Inactive IBUPROFEN 800 MG TABS 1 tab every 8 hours as needed IBUPROFEN 800 MG TABS 350012 IBUPROFEN Inactive PREDNISONE 20 MG TAB 2 tabs daily for 4 days, 1 tab daily for 4 days, 1/2 tab daily for 4 days PREDNISONE 20 MG TAB 889060 PREDNISONE Inactive FIORICET 325-50-40 MG TAB 1 tablet by mouth four times daily as needed 05/27 FIORICET 325-50-40 MG TAB [id number] Inactive FLAGYL 500 MG ORAL TABS 1 tab po bid for 7 days FLAGYL 500 MG ORAL TABS 851787 METRONIDAZOLE Inactive BUSPIRONE HCL 7.5 MG ORAL TABS 1 pill twice daily, for anxiety BUSPIRONE HCL 7.5 MG ORAL TABS 122652 BUSPIRONE HCL Inactive DIFLUCAN 100 MG TAB 1 tablet by mouth x 1 DIFLUCAN 100 MG TAB 133220 FLUCONAZOLE Inactive CYCLOBENZAPRINE HCL 10 MG TABS 1 tab po q pm, prn tamayo CYCLOBENZAPRINE HCL 10 MG TABS 306750 CYCLOBENZAPRINE HCL Inactive TRAMADOL HCL 50 MG TABS 1-2 tablets every 6 hours as needed for pain TRAMADOL HCL 50 MG TABS 930959 TRAMADOL HCL Inactive CIPRO 500 MG TAB 1 tablet by mouth twice daily CIPRO 500 MG TAB 275032 CIPROFLOXACIN HCL Inactive PHENAZOPYRIDINE HCL 100 MG ORAL TABS 1 tab po bid PHENAZOPYRIDINE HCL 100 MG ORAL TABS 8873812 PHENAZOPYRIDINE HCL Inactive AMOXICILLIN 500 MG CAPS 2 po BID x 10 days AMOXICILLIN 500 MG CAPS 609280 AMOXICILLIN Inactive AMOXICILLIN 500 MG CAPS 2 po BID x 10 days AMOXICILLIN 500 MG CAPS 392327 AMOXICILLIN Inactive AMOXICILLIN 500 MG CAPS 2 po BID x 10 days AMOXICILLIN 500 MG CAPS 314396 AMOXICILLIN Inactive FLAGYL 500 MG TABS 1 pill by mouth twice daily FLAGYL 500 MG TABS 620542 METRONIDAZOLE Inactive CIPRO 500 MG TAB 1 tablet by mouth twice daily CIPRO 500 MG TAB 325581 CIPROFLOXACIN HCL Inactive AMOXICILLIN 500 MG ORAL CAPS 1 po TID x 10 days AMOXICILLIN 500 MG ORAL CAPS 925480 AMOXICILLIN Inactive PREDNISONE 20 MG ORAL TABS 2 po qd x 3 days PREDNISONE 20 MG ORAL TABS 545796 PREDNISONE Inactive BACTRIM DS 800-160 MG ORAL TABS 1 po BID x 7 days BACTRIM DS 800-160 MG ORAL TABS 160710 SULFAMETHOXAZOLE-TRIMETHOPRIM Inactive Vital Signs Date Name Value [...] urine, semiquantitative Negative Negative Lab Report: Chlamydia/GC APTIMA/61455 - Lab chlamydia DNA probe NOT DETECTED NOT DETECTED chlamydia DNA probe NOT DETECTED NOT DETECTED Lab Report: Chlamydia/GC APTIMA/96329 - Microbiology Neisseria gonorrhoeae DNA probe NOT DETECTED NOT DETECTED Neisseria gonorrhoeae DNA probe NOT DETECTED NOT DETECTED Lab Report: Comp. Metabolic Panel, Free Thyroxine (L), Thyroid Stimulati ... - Chemistry sodium, serum 140 mmol/L 633-062 2546/08/16 carbon dioxide, venous blood 32.2 mmol/L 21.0-32.0 [...] 5.0-8.5 Encounters Code Encounter Date Provider Facility CPT-61318 Level 3 Est. Patient 11:19:27 BILLING TYPIST Sasha Grande [facility] CPT-21634 Level 3 Est. Patient 16:51:52 CDT Twin Franks MD [facility] CPT-77289 Level 3 Est. Patient 10:46:44 CDT Sasha Grande [facility] CPT-83285 Level 3 Est. Patient 11:22:49 CDT Sasha Grande [facility] CPT-06190 Level 4 Est. Patient 16:40:46 CDT Twin Franks MD [facility] CPT-86617 Level 3 Est. Patient 14:26:47 CDT Lev Huang MD [facility] CPT-46239 Level 3 Est. Patient 15:32:55 CDT Karen Cummins MD, PhD [facility] CPT-90588 Level 3 Est. Patient 16:58:58 CDT Twin Franks MD [facility] CPT-50674 Level 3 Est. Patient 15:10:24 CDT Twin Franks MD [facility] CPT-08970 Level 3 Est. Patient 11:09:46 BILLING TYPIST Twin Franks MD [facility] CPT-27742 Level 3 Est. Patient 16:59:32 BILLING TYPIST Twin Franks MD [facility] Procedures Code Procedure Name Date Entry Date Standard Description CPT-24834 Spec Collection and Handling Fee 11:23:53 BILLING TYPIST CPT-03674 IM or SQ Injection 12:06:22 CDT CPT-J1885 Toradol 30 mg (Ketorolac) 11:30:17 CDT CPT-06153 Spec Collection and Handling Fee 16:40:47 CDT CPT-J1055 Depo Provera 150 mg (Medroxyprogesterone) 09:01:32 CDT CPT-91953 Abx/Therapy Injection 09:01:32 CDT CPT-13673 Abx/Therapy Injection 11:43:35 CDT CPT-J1055 Depo Provera 150 mg (Medroxyprogesterone) 15:22:54 CDT CPT-89236 Spec Collection and Handling Fee 15:10:24 CDT
--- OUTSIDE RECORDS SUMMARY | 2017-09-07 12:24 | XMS REPORT | Clinical Summary ---
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 Other, mixed, or unspecified drug abuse, unspecified use Anxiety 300.00 Active Jillina Frazell [employer]IC Anxiety state, unspecified DYSURIA 788.1 Resolved Twin [...] Inactive Twin Franks MD DYSURIA ICD-788.1 Inactive Twni Franks MD 08/07 Medication List Medication Instructions Start Date Stop Date Generic Name NDC Status Provider Patient Instruction BACTRIM DS 800-160 MG ORAL TABS 1 po BID x 7 days SULFAMETHOXAZOLE-TRIMETHOPRIM 81165701802 Active Twin Franks MD Active CELEXA 20 MG ORAL TABLET Take one tab po daily CITALOPRAM HYDROBROMIDE 65203805742 Active Twin Franks MD Active PHENAZOPYRIDINE HCL 100 MG ORAL TABS 1 tab po bid PHENAZOPYRIDINE HCL 05546010717 No Longer Active Twin Franks MD Active CIPRO 500 MG TAB 1 tablet by mouth twice daily CIPROFLOXACIN HCL 96466712942 No Longer Active Twin Franks MD Active TRAMADOL HCL 50 MG TABS 1-2 tablets every 6 hours as needed for pain TRAMADOL HCL 49291005444 No Longer Active Jillina Frazell [employer] CAR [employer]CH[employer]IC Active CYCLOBENZAPRINE HCL 10 MG TABS 1 tab po q pm, prn tamayo CYCLOBENZAPRINE HCL 30462203001 No Longer Active Jillina Frazell [employer] CAR MECH[employer]IC Active DIFLUCAN 100 MG TAB 1 tablet by mouth x 1 FLUCONAZOLE 62735271092 No Longer Active Jillina Frazell [employer] CAR 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[employer]IC Active BUSPIRONE HCL 7.5 MG ORAL TABS 1 pill twice daily, for anxiety BUSPIRONE HCL 16531587576 No Longer Active Jillina Frazell [employer]ACE CAR 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[employer]IC Active FLAGYL 500 MG ORAL TABS 1 tab po bid for 7 days METRONIDAZOLE 59643965423 No Longer Active Jillina Fraalessandral [employer] MECH[employer]IC Active PREDNISONE 20 MG ORAL TABS 2 po qd x 3 days PREDNISONE 35121029970 No Longer Active Twin Franks MD Active AMOXICILLIN 500 MG ORAL CAPS 1 po TID x 10 days AMOXICILLIN 30577673249 No Longer Active Twin Franks MD Active CIPRO 500 MG TAB 1 tablet by mouth twice daily CIPROFLOXACIN HCL 03768198519 No Longer Active Lev Huang MD Active FIORICET 325-50-40 MG TAB 1 tablet by mouth four times daily as needed 05/27 [id number] 18602873395 No Longer Active Lev Huang MD Active FLAGYL 500 MG TABS 1 pill by mouth twice daily METRONIDAZOLE 74477300325 No Longer Active Karen Cummins MD PhD Active PREDNISONE 20 MG TAB 2 tabs daily for 4 days, 1 tab daily for 4 days, 1/2 tab daily for 4 days PREDNISONE 11123370640 No Longer Active Karen Cummins MD PhD Active AMOXICILLIN 500 MG CAPS 2 po BID x 10 days AMOXICILLIN 71643600173 No Longer Active Twin Franks MD Active IBUPROFEN 800 MG TABS 1 tab every 8 hours as needed IBUPROFEN 06351758746 No Longer Active Twin Franks MD Active FLONASE 50 MCG/ACT SUSP 2 puffs in each nostril daily FLUTICASONE PROPIONATE 13568587491 No Longer Active Twin Franks MD Active AMOXICILLIN 500 MG CAPS 2 po BID x 10 days AMOXICILLIN 80834638753 No Longer Active Twin Franks MD Active AMOXICILLIN 500 MG CAPS 2 po BID x 10 days AMOXICILLIN 86621822810 No Longer Active Twin Franks MD Active FLONASE 50 MCG/ACT SUSP 2 puffs in each nostril daily FLONASE 50 MCG/ACT SUSP 1976431 FLUTICASONE PROPIONATE Inactive IBUPROFEN 800 MG TABS 1 tab every 8 hours as needed IBUPROFEN 800 MG TABS 447799 IBUPROFEN Inactive PREDNISONE 20 MG TAB 2 tabs daily for 4 days, 1 tab daily for 4 days, 1/2 tab daily for 4 days PREDNISONE 20 MG TAB 120835 PREDNISONE Inactive FIORICET 325-50-40 MG TAB 1 tablet by mouth four times daily as needed 05/27 FIORICET 325-50-40 MG TAB [id number] Inactive FLAGYL 500 MG ORAL TABS 1 tab po bid for 7 days FLAGYL 500 MG ORAL TABS 951256 METRONIDAZOLE Inactive BUSPIRONE HCL 7.5 MG ORAL TABS 1 pill twice daily, for anxiety BUSPIRONE HCL 7.5 MG ORAL TABS 460290 BUSPIRONE HCL Inactive DIFLUCAN 100 MG TAB 1 tablet by mouth x 1 DIFLUCAN 100 MG TAB 044247 FLUCONAZOLE Inactive CYCLOBENZAPRINE HCL 10 MG TABS 1 tab po q pm, prn tamayo CYCLOBENZAPRINE HCL 10 MG TABS 259233 CYCLOBENZAPRINE HCL Inactive TRAMADOL HCL 50 MG TABS 1-2 tablets every 6 hours as needed for pain TRAMADOL HCL 50 MG TABS 002259 TRAMADOL HCL Inactive CIPRO 500 MG TAB 1 tablet by mouth twice daily CIPRO 500 MG TAB 501809 CIPROFLOXACIN HCL Inactive PHENAZOPYRIDINE HCL 100 MG ORAL TABS 1 tab po bid PHENAZOPYRIDINE HCL 100 MG ORAL TABS 9997025 PHENAZOPYRIDINE HCL Inactive AMOXICILLIN 500 MG CAPS 2 po BID x 10 days AMOXICILLIN 500 MG CAPS 083225 AMOXICILLIN Inactive AMOXICILLIN 500 MG CAPS 2 po BID x 10 days AMOXICILLIN 500 MG CAPS 127347 AMOXICILLIN Inactive AMOXICILLIN 500 MG CAPS 2 po BID x 10 days AMOXICILLIN 500 MG CAPS 304921 AMOXICILLIN Inactive FLAGYL 500 MG TABS 1 pill by mouth twice daily FLAGYL 500 MG TABS 435185 METRONIDAZOLE Inactive CIPRO 500 MG TAB 1 tablet by mouth twice daily CIPRO 500 MG TAB 607503 CIPROFLOXACIN HCL Inactive AMOXICILLIN 500 MG ORAL CAPS 1 po TID x 10 days AMOXICILLIN 500 MG ORAL CAPS 376381 AMOXICILLIN Inactive PREDNISONE 20 MG ORAL TABS 2 po qd x 3 days PREDNISONE 20 MG ORAL TABS 867825 PREDNISONE Inactive Vital Signs Date Name Value [...] urine, semiquantitative Negative Negative Lab Report: Chlamydia/GC APTIMA/38086 - Lab chlamydia DNA probe NOT DETECTED NOT DETECTED chlamydia DNA probe NOT DETECTED NOT DETECTED Lab Report: Chlamydia/GC APTIMA/23572 - Microbiology Neisseria gonorrhoeae DNA probe NOT DETECTED NOT DETECTED Neisseria gonorrhoeae DNA probe NOT DETECTED NOT DETECTED Lab Report: Comp. Metabolic Panel, Free Thyroxine (L), Thyroid Stimulati ... - Chemistry sodium, serum 140 mmol/L 802-714 5037/08/16 carbon dioxide, venous blood 32.2 mmol/L 21.0-32.0 [...] Clear Encounters Code Encounter Date Provider Facility CPT-50788 Level 3 Est. Patient 16:51:52 CDT Twin Franks MD [facility] CPT-65857 Level 3 Est. Patient 10:46:44 CDT Sasha Grande [facility] CPT-58111 Level 3 Est. Patient 11:22:49 CDT Sasha Grande [facility] CPT-61172 Level 4 Est. Patient 16:40:46 CDT Twin Franks MD [facility] CPT-55950 Level 3 Est. Patient 14:26:47 CDT Lev Huang MD [facility] CPT-75680 Level 3 Est. Patient 15:32:55 CDT Karen Cummins MD PhD [facility] CPT-13973 Level 3 Est. Patient 16:58:58 CDT Twin Franks MD [facility] CPT-01306 Level 3 Est. Patient 15:10:24 CDT Twin Franks MD [facility] CPT-34575 Level 3 Est. 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 Patient 16:59:32 CAN INTAKE WORKER Twin Franks MD [facility] Procedures Code Procedure Name Date Entry Date Standard Description CPT-17710 IM or SQ Injection 12:06:22 CDT CPT-J1885 Toradol 30 mg (Ketorolac) 11:30:17 CDT CPT-99786 Spec Collection and Handling Fee 16:40:47 CDT CPT-J1055 Depo Provera 150 mg (Medroxyprogesterone) 09:01:32 CDT CPT-53288 Abx/Therapy Injection 09:01:32 CDT CPT-30629 Abx/Therapy Injection 11:43:35 CDT CPT-J1055 Depo Provera 150 mg (Medroxyprogesterone) 15:22:54 CDT CPT-64617 Spec Collection and Handling Fee 15:10:24 CDT
--- OUTSIDE RECORDS SUMMARY | 2017-09-07 12:24 | XMS REPORT | Clinical Summary ---
Author Author Admin, MARY Organization [facility] Address Unknown Phone Unavailable Allergies, Adverse Reactions, [...] Drug abuse 305.90 Active Jillina Frazell CHIEF CRUISER Other, mixed, or unspecified drug abuse, unspecified use Anxiety 300.00 Active Jillina Shamirl CHIEF CRUISER Anxiety state, unspecified DYSURIA 788.1 Active Jibrittanyina Harjinder VENEGASN Dysuria SINUSITIS, ACUTE ICD-461.9 Inactive Karen Cummins MD PhD HEADACHE, TENSION ICD-307.81 Inactive Karen Cummins MD PhD Vaginitis ICD-616.10 Inactive Twin Franks MD UTI ICD-599.0 Inactive Twin Franks MD SINUSITIS, ACUTE ICD-461.9 Inactive Twin Franks MD Medication List Medication Instructions Start Date Stop Date Generic Name NDC Status Provider Patient Instruction PHENAZOPYRIDINE HCL 100 MG ORAL TABS 1 tab po bid PHENAZOPYRIDINE HCL 16950906414 Active Aylaina Harjinder VENEGASN Active CIPRO 500 MG TAB 1 tablet by mouth twice daily CIPROFLOXACIN HCL 97397479387 Active Jillina Shamirl CHIEF CRUISER Active TRAMADOL HCL 50 MG TABS 1-2 tablets every 6 hours as needed for pain TRAMADOL HCL 82172343574 No Longer Active Geraldllina Shamirl CHIEF CRUISER Active CYCLOBENZAPRINE HCL 10 MG TABS 1 tab po q pm, prn tamayo CYCLOBENZAPRINE HCL 99654328651 No Longer Active Geraldllina Shamirl CHIEF CRUISER Active DIFLUCAN 100 MG TAB 1 tablet by mouth x 1 FLUCONAZOLE 09597749334 No Longer Active Jillina Frazell CHIEF CRUISER Active BUSPIRONE HCL 7.5 MG ORAL TABS 1 pill twice daily, for anxiety BUSPIRONE HCL 07511327217 No Longer Active Jillina Fraalessandral CHIEF CRUISER Active FLAGYL 500 MG ORAL TABS 1 tab po bid for 7 days METRONIDAZOLE 12127127972 No Longer Active Jillina Frazell CHIEF CRUISER Active PREDNISONE 20 MG ORAL TABS 2 po qd x 3 days PREDNISONE 37240560642 No Longer Active Twin Franks MD Active AMOXICILLIN 500 MG ORAL CAPS 1 po TID x 10 days AMOXICILLIN 74594497767 No Longer Active Twin Franks MD Active CIPRO 500 MG TAB 1 tablet by mouth twice daily CIPROFLOXACIN HCL 03455544349 No Longer Active Lev Huang MD Active FIORICET 325-50-40 MG TAB 1 tablet by mouth four times daily as needed 05/27 [id number] 10507731304 No Longer Active Lev Huang MD Active FLAGYL 500 MG TABS 1 pill by mouth twice daily METRONIDAZOLE 72750300700 No Longer Active Karen Cummins MD PhD Active PREDNISONE 20 MG TAB 2 tabs daily for 4 days, 1 tab daily for 4 days, 1/2 tab daily for 4 days PREDNISONE 26994029525 No Longer Active Karen Cummins MD PhD Active AMOXICILLIN 500 MG CAPS 2 po BID x 10 days AMOXICILLIN 14974051016 No Longer Active Twin Franks MD Active IBUPROFEN 800 MG TABS 1 tab every 8 hours as needed IBUPROFEN 26704529796 No Longer Active Twin Franks MD Active FLONASE 50 MCG/ACT SUSP 2 puffs in each nostril daily FLUTICASONE PROPIONATE 96902249362 No Longer Active Twin Franks MD Active AMOXICILLIN 500 MG CAPS 2 po BID x 10 days AMOXICILLIN 52647844562 No Longer Active Twin Franks MD Active AMOXICILLIN 500 MG CAPS 2 po BID x 10 days AMOXICILLIN 04694561816 No Longer Active Twin Franks MD Active FLONASE 50 MCG/ACT SUSP 2 puffs in each nostril daily FLONASE 50 MCG/ACT SUSP 7598876 FLUTICASONE PROPIONATE Inactive IBUPROFEN 800 MG TABS 1 tab every 8 hours as needed IBUPROFEN 800 MG TABS 195373 IBUPROFEN Inactive PREDNISONE 20 MG TAB 2 tabs daily for 4 days, 1 tab daily for 4 days, 1/2 tab daily for 4 days PREDNISONE 20 MG TAB 826748 PREDNISONE Inactive FIORICET 325-50-40 MG TAB 1 tablet by mouth four times daily as needed 05/27 FIORICET 325-50-40 MG TAB [id number] Inactive FLAGYL 500 MG ORAL TABS 1 tab po bid for 7 days FLAGYL 500 MG ORAL TABS 799603 METRONIDAZOLE Inactive BUSPIRONE HCL 7.5 MG ORAL TABS 1 pill twice daily, for anxiety BUSPIRONE HCL 7.5 MG ORAL TABS 029457 BUSPIRONE HCL Inactive DIFLUCAN 100 MG TAB 1 tablet by mouth x 1 DIFLUCAN 100 MG TAB 361475 FLUCONAZOLE Inactive CYCLOBENZAPRINE HCL 10 MG TABS 1 tab po q pm, prn tamayo CYCLOBENZAPRINE HCL 10 MG TABS 777569 CYCLOBENZAPRINE HCL Inactive TRAMADOL HCL 50 MG TABS 1-2 tablets every 6 hours as needed for pain TRAMADOL HCL 50 MG TABS 338474 TRAMADOL HCL Inactive AMOXICILLIN 500 MG CAPS 2 po BID x 10 days AMOXICILLIN 500 MG CAPS 473315 AMOXICILLIN Inactive AMOXICILLIN 500 MG CAPS 2 po BID x 10 days AMOXICILLIN 500 MG CAPS 584437 AMOXICILLIN Inactive AMOXICILLIN 500 MG CAPS 2 po BID x 10 days AMOXICILLIN 500 MG CAPS 481399 AMOXICILLIN Inactive FLAGYL 500 MG TABS 1 pill by mouth twice daily FLAGYL 500 MG TABS 456617 METRONIDAZOLE Inactive CIPRO 500 MG TAB 1 tablet by mouth twice daily CIPRO 500 MG TAB 908147 CIPROFLOXACIN HCL Inactive AMOXICILLIN 500 MG ORAL CAPS 1 po TID x 10 days AMOXICILLIN 500 MG ORAL CAPS 828174 AMOXICILLIN Inactive PREDNISONE 20 MG ORAL TABS 2 po qd x 3 days PREDNISONE 20 MG ORAL TABS 014004 PREDNISONE Inactive Vital Signs Date Name Value [...] urine, semiquantitative Negative Negative Lab Report: Chlamydia/GC APTIMA/44611 - Lab chlamydia DNA probe NOT DETECTED NOT DETECTED chlamydia DNA probe NOT DETECTED NOT DETECTED Lab Report: Chlamydia/GC APTIMA/29622 - Microbiology Neisseria gonorrhoeae DNA probe NOT DETECTED NOT DETECTED Neisseria gonorrhoeae DNA probe NOT DETECTED NOT DETECTED Lab Report: Comp. Metabolic Panel, Free Thyroxine (L), Thyroid Stimulati ... - Chemistry sodium, serum 140 mmol/L 893-057 9636/08/16 carbon dioxide, venous blood 32.2 mmol/L 21.0-32.0 [...] 0.36-3.74 Encounters Code Encounter Date Provider Facility CPT-93543 Level 3 Est. Patient 10:46:44 CDT Sasha Grande [facility] CPT-65589 Level 3 Est. Patient 11:22:49 CDT Sasha Grande [facility] CPT-34192 Level 4 Est. Patient 16:40:46 CDT Twin Franks MD [facility] CPT-43111 Level 3 Est. Patient 14:26:47 CDT Lev Huang MD [facility] CPT-21313 Level 3 Est. Patient 15:32:55 CDT Karen Cummins MD PhD [facility] CPT-63457 Level 3 Est. Patient 16:58:58 CDT Twin Franks MD [facility] CPT-16674 Level 3 Est. Patient 15:10:24 CDT Twin Franks MD [facility] CPT-78796 Level 3 Est. 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
--- OUTSIDE RECORDS SUMMARY | 2017-09-07 12:24 | XMS REPORT | Clinical Summary ---
Author Author Admin, MARY Organization [facility] Address Unknown Phone Unavailable Allergies, Adverse [...] tab po bid for 7 days METRONIDAZOLE 62055200195 Active Twin Franks MD Active PREDNISONE 20 MG ORAL TABS 2 po qd x 3 days PREDNISONE 45120123846 No Longer Active Twin Franks MD Active AMOXICILLIN 500 MG ORAL CAPS 1 po TID x 10 days AMOXICILLIN 01528890591 No Longer Active Twin Franks MD Active CIPRO 500 MG TAB 1 tablet by mouth twice daily CIPROFLOXACIN HCL 51703241750 No Longer Active Lev Huang MD Active FIORICET 325-50-40 MG TAB 1 tablet by mouth four times daily as needed 05/27 [id number] 95405472070 No Longer Active Lev Huang MD Active FLAGYL 500 MG TABS 1 pill by mouth twice daily METRONIDAZOLE 88500583049 No Longer Active Karen Cummins MD PhD Active PREDNISONE 20 MG TAB 2 tabs daily for 4 days, 1 tab daily for 4 days, 1/2 tab daily for 4 days PREDNISONE 00565295010 No Longer Active Karen Cummins MD PhD Active AMOXICILLIN 500 MG CAPS 2 po BID x 10 days AMOXICILLIN 21109363284 No Longer Active Twin Franks MD Active IBUPROFEN 800 MG TABS 1 tab every 8 hours as needed IBUPROFEN 94104304157 No Longer Active Twin Franks MD Active FLONASE 50 MCG/ACT SUSP 2 puffs in each nostril daily FLUTICASONE PROPIONATE 36684143833 No Longer Active Twin Franks MD Active AMOXICILLIN 500 MG CAPS 2 po BID x 10 days AMOXICILLIN 32909761900 No Longer Active Twin Franks MD Active AMOXICILLIN 500 MG CAPS 2 po BID x 10 days AMOXICILLIN 62586913415 No Longer Active Twin Franks MD Active FLONASE 50 MCG/ACT SUSP 2 puffs in each nostril daily FLONASE 50 MCG/ACT SUSP 5268067 FLUTICASONE PROPIONATE Inactive IBUPROFEN 800 MG TABS 1 tab every 8 hours as needed IBUPROFEN 800 MG TABS 018082 IBUPROFEN Inactive PREDNISONE 20 MG TAB 2 tabs daily for 4 days, 1 tab daily for 4 days, 1/2 tab daily for 4 days PREDNISONE 20 MG TAB 113422 PREDNISONE Inactive FIORICET 325-50-40 MG TAB 1 tablet by mouth four times daily as needed 05/27 FIORICET 325-50-40 MG TAB [id number] Inactive AMOXICILLIN 500 MG CAPS 2 po BID x 10 days AMOXICILLIN 500 MG CAPS 280214 AMOXICILLIN Inactive AMOXICILLIN 500 MG CAPS 2 po BID x 10 days AMOXICILLIN 500 MG CAPS 379614 AMOXICILLIN Inactive AMOXICILLIN 500 MG CAPS 2 po BID x 10 days AMOXICILLIN 500 MG CAPS 415514 AMOXICILLIN Inactive FLAGYL 500 MG TABS 1 pill by mouth twice daily FLAGYL 500 MG TABS 978045 METRONIDAZOLE Inactive CIPRO 500 MG TAB 1 tablet by mouth twice daily CIPRO 500 MG TAB 947990 CIPROFLOXACIN HCL Inactive AMOXICILLIN 500 MG ORAL CAPS 1 po TID x 10 days AMOXICILLIN 500 MG ORAL CAPS 504370 AMOXICILLIN Inactive PREDNISONE 20 MG ORAL TABS 2 po qd x 3 days PREDNISONE 20 MG ORAL TABS 821141 PREDNISONE Inactive Vital Signs Date Name Value [...] Value Unit Range Description Lab Report: Chlamydia/GC APTIMA/97385 - Lab chlamydia DNA probe NOT DETECTED NOT DETECTED Lab Report: Chlamydia/GC APTIMA/15685 - Microbiology Neisseria gonorrhoeae DNA probe NOT DETECTED NOT DETECTED Encounters Code Encounter Date Provider Facility CPT-05579 Level 4 Est. Patient 16:40:46 CDT Twin Franks MD [facility] CPT-51056 Level 3 Est. Patient 14:26:47 CDT Lev Huang MD [facility] CPT-36274 Level 3 Est. Patient 15:32:55 CDT Karen Cummins MD PhD [facility] CPT-00043 Level 3 Est. Patient 16:58:58 CDT Twin Franks MD [facility] CPT-25167 Level 3 Est. Patient 15:10:24 CDT Twin Franks MD [facility] CPT-20564 Level 3 Est. 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
--- OUTSIDE RECORDS SUMMARY | 2017-09-07 12:25 | XMS REPORT ---
Author Author [facility] Medical Staff Organization [facility] Address [address] [place], [place] [address] Phone [phone] Care Team Providers Care Pre Owned Sales Manager Name Role Phone SHWETA GARCIA MD PP [phone] Summary purpose CCDA Sent to [facility] Chief Complaint and Reason for Visit [...] Code Type Description Date Performed Performing Physician [id number] CPT-4 URINE CULTURE/COLONY COUNT 06-12-2017 LONG PRETTY 01917 CPT-4 CULTURE AEROBIC IDENTIFY 06-12-2017 LONG PRETTY 55688 CPT-4 MICROBE SUSCEPTIBLE, RUDY 06-12-2017 LONG PRETTY Functional status No functional or [...]
--- OUTSIDE RECORDS SUMMARY | 2017-09-07 12:25 | XMS REPORT | Clinical Summary ---
Author Author Admin, MARY Organization [facility] Address Unknown Phone Unavailable Allergies, Adverse Reactions, [...] Vaginitis and vulvovaginitis, unspecified UTI 599.0 Resolved wTin Franks MD Urinary tract infection, site not specified Sinusitis, acute 461.9 Active Twin Franks MD Acute sinusitis, unspecified Vaginal discharge 623.5 Active Twin Franks MD Leukorrhea, not specified as infective Headache 784.0 Active Sasha Grande APRN Headache Drug abuse 305.90 Active Jillina Fraalessandral ANIMATOR Other, mixed, or unspecified drug abuse, unspecified use Anxiety 300.00 Active Jillina Frazell ANIMATOR Anxiety state, unspecified SINUSITIS, ACUTE ICD-461.9 Inactive Twin rFanks MD SINUSITIS, ACUTE ICD-461.9 Inactive Karen Cummins MD PhD HEADACHE, TENSION ICD-307.81 Inactive Karen Cummins MD PhD Vaginitis ICD-616.10 Inactive Twin Franks MD UTI ICD-599.0 Inactive Twin Franks MD Medication List Medication Instructions Start Date Stop Date Generic Name NDC Status Provider Patient Instruction CYCLOBENZAPRINE HCL 10 MG TABS 1 tab po q pm, prn tamayo CYCLOBENZAPRINE HCL 74602883366 Active Jillrubia Fratika VENEGASN Active TRAMADOL HCL 50 MG TABS 1-2 tablets every 6 hours as needed for pain TRAMADOL HCL 21208232067 Active Jillina Fratika VENEGASN Active FLAGYL 500 MG ORAL TABS 1 tab po bid for 7 days METRONIDAZOLE 06412971124 No Longer Active Geraldllrubia Grande APRN Active PREDNISONE 20 MG ORAL TABS 2 po qd x 3 days PREDNISONE 36116801538 No Longer Active Twin Franks MD Active AMOXICILLIN 500 MG ORAL CAPS 1 po TID x 10 days AMOXICILLIN 66008812295 No Longer Active Twin Franks MD Active CIPRO 500 MG TAB 1 tablet by mouth twice daily CIPROFLOXACIN HCL 55034847363 No Longer Active Lev Huang MD Active FIORICET 325-50-40 MG TAB 1 tablet by mouth four times daily as needed 05/27 [id number] 71153295649 No Longer Active Lev Huang MD Active FLAGYL 500 MG TABS 1 pill by mouth twice daily METRONIDAZOLE 60419181199 No Longer Active Karen Cummins MD PhD Active PREDNISONE 20 MG TAB 2 tabs daily for 4 days, 1 tab daily for 4 days, 1/2 tab daily for 4 days PREDNISONE 52359692394 No Longer Active Karen Cummins MD PhD Active AMOXICILLIN 500 MG CAPS 2 po BID x 10 days AMOXICILLIN 86647793857 No Longer Active Twin Fransk MD Active IBUPROFEN 800 MG TABS 1 tab every 8 hours as needed IBUPROFEN 71966332522 No Longer Active Twin Franks MD Active FLONASE 50 MCG/ACT SUSP 2 puffs in each nostril daily FLUTICASONE PROPIONATE 56986419849 No Longer Active Twin Franks MD Active AMOXICILLIN 500 MG CAPS 2 po BID x 10 days AMOXICILLIN 91369559179 No Longer Active Twin Franks MD Active AMOXICILLIN 500 MG CAPS 2 po BID x 10 days AMOXICILLIN 47254078450 No Longer Active Twin Franks MD Active FLONASE 50 MCG/ACT SUSP 2 puffs in each nostril daily FLONASE 50 MCG/ACT SUSP 3767292 FLUTICASONE PROPIONATE Inactive IBUPROFEN 800 MG TABS 1 tab every 8 hours as needed IBUPROFEN 800 MG TABS 102707 IBUPROFEN Inactive PREDNISONE 20 MG TAB 2 tabs daily for 4 days, 1 tab daily for 4 days, 1/2 tab daily for 4 days PREDNISONE 20 MG TAB 907676 PREDNISONE Inactive FIORICET 325-50-40 MG TAB 1 tablet by mouth four times daily as needed 05/27 FIORICET 325-50-40 MG TAB [id number] Inactive FLAGYL 500 MG ORAL TABS 1 tab po bid for 7 days FLAGYL 500 MG ORAL TABS 852746 METRONIDAZOLE Inactive AMOXICILLIN 500 MG CAPS 2 po BID x 10 days AMOXICILLIN 500 MG CAPS 575810 AMOXICILLIN Inactive AMOXICILLIN 500 MG CAPS 2 po BID x 10 days AMOXICILLIN 500 MG CAPS 369981 AMOXICILLIN Inactive AMOXICILLIN 500 MG CAPS 2 po BID x 10 days AMOXICILLIN 500 MG CAPS 948140 AMOXICILLIN Inactive FLAGYL 500 MG TABS 1 pill by mouth twice daily FLAGYL 500 MG TABS 149467 METRONIDAZOLE Inactive CIPRO 500 MG TAB 1 tablet by mouth twice daily CIPRO 500 MG TAB 095096 CIPROFLOXACIN HCL Inactive AMOXICILLIN 500 MG ORAL CAPS 1 po TID x 10 days AMOXICILLIN 500 MG ORAL CAPS 162068 AMOXICILLIN Inactive PREDNISONE 20 MG ORAL TABS 2 po qd x 3 days PREDNISONE 20 MG ORAL TABS 810547 PREDNISONE Inactive Vital Signs Date Name Value [...] Value Unit Range Description Lab Report: Chlamydia/GC APTIMA/23495 - Lab chlamydia DNA probe NOT DETECTED NOT DETECTED Lab Report: Chlamydia/GC APTIMA/76696 - Microbiology Neisseria gonorrhoeae DNA probe NOT DETECTED NOT DETECTED Encounters Code Encounter Date Provider Facility CPT-42296 Level 3 Est. Patient 11:22:49 CDT Sasha Grande [facility] CPT-41827 Level 4 Est. Patient 16:40:46 CDT Twin Franks MD [facility] CPT-00613 Level 3 Est. Patient 14:26:47 CDT Lev Huang MD [facility] CPT-91478 Level 3 Est. Patient 15:32:55 CDT Karen Cummins MD PhD [facility] CPT-24475 Level 3 Est. Patient 16:58:58 CDT Twin Franks MD [facility] CPT-18776 Level 3 Est. Patient 15:10:24 CDT Twin Franks MD [facility] CPT-28882 Level 3 Est. 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 Patient 16:59:32 PIPE WELDER Twni Franks MD [facility] Procedures Code Procedure Name Date Entry Date Standard Description CPT-50393 IM or SQ Injection 12:06:22 CDT CPT-J1885 Toradol 30 mg (Ketorolac) 11:30:17 CDT CPT-78129 Spec Collection and Handling Fee 16:40:47 CDT CPT-J1055 Depo Provera 150 mg (Medroxyprogesterone) 09:01:32 CDT CPT-01055 Abx/Therapy Injection 09:01:32 CDT CPT-40516 Abx/Therapy Injection 11:43:35 CDT CPT-J1055 Depo Provera 150 mg (Medroxyprogesterone) 15:22:54 CDT CPT-36682 Spec Collection and Handling Fee 15:10:24 CDT
--- OUTSIDE RECORDS SUMMARY | 2017-09-07 12:25 | XMS REPORT | Clinical Summary ---
Author Author Admin, MARY Costa [facility] Address Unknown Phone Unavailable Allergies, Adverse Reactions, Alerts Allergy Name Reaction Description Start Date Severity Status Provider No Known Allergies Alexandra Serenity [facility] Conditions or Problems Problem Name Problem Code [...] 1 pill by mouth twice daily METRONIDAZOLE 98946339196 Active Karen Cummins MD PhD Active PREDNISONE 20 MG TAB 2 tabs daily for 4 days, 1 tab daily for 4 days, 1/2 tab daily for 4 days PREDNISONE 71158946404 No Longer Active Karen Cummins MD PhD Active FIORICET 325-50-40 MG TAB 1 tablet by mouth four times daily as needed 05/27 [id number] 93880502429 Active Twin Franks MD Active AMOXICILLIN 500 MG CAPS 2 po BID x 10 days AMOXICILLIN 60846163555 No Longer Active Twin Franks MD Active IBUPROFEN 800 MG TABS 1 tab every 8 hours as needed IBUPROFEN 60917466123 No Longer Active Twin Franks MD Active FLONASE 50 MCG/ACT SUSP 2 puffs in each nostril daily FLUTICASONE PROPIONATE 90250795360 No Longer Active Twin Franks MD Active AMOXICILLIN 500 MG CAPS 2 po BID x 10 days AMOXICILLIN 86131794380 No Longer Active Twin Franks MD Active AMOXICILLIN 500 MG CAPS 2 po BID x 10 days AMOXICILLIN 40509083071 No Longer Active Twin Franks MD Active FLONASE 50 MCG/ACT SUSP 2 puffs in each nostril daily FLONASE 50 MCG/ACT SUSP 050466 FLUTICASONE PROPIONATE Inactive IBUPROFEN 800 MG TABS 1 tab every 8 hours as needed IBUPROFEN 800 MG TABS 330833 IBUPROFEN Inactive PREDNISONE 20 MG TAB 2 tabs daily for 4 days, 1 tab daily for 4 days, 1/2 tab daily for 4 days PREDNISONE 20 MG TAB 575343 PREDNISONE Inactive AMOXICILLIN 500 MG CAPS 2 po BID x 10 days AMOXICILLIN 500 MG CAPS 905675 AMOXICILLIN Inactive AMOXICILLIN 500 MG CAPS 2 po BID x 10 days AMOXICILLIN 500 MG CAPS 102734 AMOXICILLIN Inactive AMOXICILLIN 500 MG CAPS 2 po BID x 10 days AMOXICILLIN 500 MG CAPS 773604 AMOXICILLIN Inactive Vital Signs Date Name Value Unit Range Description blood pressure, diastolic - 8462-4 70 mm[Hg] BP lee blood pressure, systolic - 8480-6 111 mm[Hg] BP sys pulse rate E&M - 8867-4 72 /min Heart rate temperature E&M 98.2 [degF] Body temperature weight E&M - 3141-9 113.12 [lb_av] Weight Measured Diagnostic Results Date Name Value Unit Range Description Lab Report: Chlamydia/GC APTIMA/74267 - Lab chlamydia DNA probe NOT DETECTED NOT DETECTED Lab Report: Chlamydia/GC APTIMA/24895 - Microbiology Neisseria gonorrhoeae DNA probe NOT [...] Negative Encounters Code Encounter Date Provider Facility CPT-06140 Level 3 Est. Patient 15:32:55 CDT Karen Cummins MD PhD [facility] CPT-85844 Level 3 Est. Patient 16:58:58 CDT Twin Franks MD [facility] CPT-65292 Level 3 Est. Patient 15:10:24 CDT Twin Franks MD [facility] CPT-66494 Level 3 Est. 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 CPT-04288 Level 3 Est. 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 Procedures Code Procedure Name Date Entry Date Standard Description CPT-J1055 Depo Provera 150 mg (Medroxyprogesterone) 09:01:32 CDT CPT-25555 Abx/Therapy Injection 09:01:32 CDT CPT-68387 Abx/Therapy Injection 11:43:35 CDT CPT-J1055 Depo Provera 150 mg (Medroxyprogesterone) 15:22:54 CDT CPT-10202 Spec Collection and Handling Fee 15:10:24 CDT
--- OUTSIDE RECORDS SUMMARY | 2017-09-07 12:26 | XMS REPORT | Clinical Summary ---
Author Author Admin, MARY Costa [facility] Address Unknown Phone Unavailable Allergies, Adverse Reactions, Alerts Allergy Name Reaction Description Start Date Severity Status Provider No Known Allergies Alexandra Serenity [facility] Conditions or Problems Problem Name [...] MD PhD HEADACHE, TENSION ICD-307.81 Inactive Karen uCmmins MD PhD SINUSITIS, ACUTE ICD-461.9 Inactive Twin Franks MD Medication List Medication Instructions Start Date Stop Date Generic Name NDC Status Provider Patient Instruction PREDNISONE 20 MG TAB 2 tabs daily for 4 days, 1 tab daily for 4 days, 1/2 tab daily for 4 days PREDNISONE 12012549496 No Longer Active Karen Cummins MD PhD Active FIORICET 325-50-40 MG TAB 1 tablet by mouth four times daily as needed 05/27 [id number] 90460492116 Active Twin Franks MD Active AMOXICILLIN 500 MG CAPS 2 po BID x 10 days AMOXICILLIN 40376091748 No Longer Active Twin Franks MD Active IBUPROFEN 800 MG TABS 1 tab every 8 hours as needed IBUPROFEN 86939090784 No Longer Active Twin Franks MD Active FLONASE 50 MCG/ACT SUSP 2 puffs in each nostril daily FLUTICASONE PROPIONATE 64957540408 No Longer Active Twin Franks MD Active AMOXICILLIN 500 MG CAPS 2 po BID x 10 days AMOXICILLIN 25727100578 No Longer Active Twin Franks MD Active AMOXICILLIN 500 MG CAPS 2 po BID x 10 days AMOXICILLIN 13787478063 No Longer Active Twin Franks MD Active FLONASE 50 MCG/ACT SUSP 2 puffs in each nostril daily FLONASE 50 MCG/ACT SUSP 459416 FLUTICASONE PROPIONATE Inactive IBUPROFEN 800 MG TABS 1 tab every 8 hours as needed IBUPROFEN 800 MG TABS 725452 IBUPROFEN Inactive PREDNISONE 20 MG TAB 2 tabs daily for 4 days, 1 tab daily for 4 days, 1/2 tab daily for 4 days PREDNISONE 20 MG TAB 756866 PREDNISONE Inactive AMOXICILLIN 500 MG CAPS 2 po BID x 10 days AMOXICILLIN 500 MG CAPS 747354 AMOXICILLIN Inactive AMOXICILLIN 500 MG CAPS 2 po BID x 10 days AMOXICILLIN 500 MG CAPS 975895 AMOXICILLIN Inactive AMOXICILLIN 500 MG CAPS 2 po BID x 10 days AMOXICILLIN 500 MG CAPS 428607 AMOXICILLIN Inactive Vital Signs Date Name Value Unit Range Description blood pressure, diastolic - 8462-4 70 mm[Hg] BP lee blood pressure, systolic - 8480-6 111 mm[Hg] BP sys pulse rate E&M - 8867-4 72 /min Heart rate temperature E&M 98.2 [degF] Body temperature weight E&M - 3141-9 113.12 [lb_av] Weight Measured Encounters Code Encounter Date Provider Facility CPT-51379 Level 3 Est. Patient 15:32:55 CDT Karen Cummins MD PhD [facility] CPT-81743 Level 3 Est. Patient 16:58:58 CDT Twin Franks MD [facility] CPT-20923 Level 3 Est. Patient 15:10:24 CDT Twin Franks MD [facility] CPT-24251 Level 3 Est. 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 Patient 16:59:32 TRAFFIC SUPERINTENDENT Twin Franks MD [facility] Procedures Code Procedure Name Date Entry Date Standard Description CPT-J1055 Depo Provera 150 mg (Medroxyprogesterone) 09:01:32 CDT CPT-37166 Abx/Therapy Injection 09:01:32 CDT CPT-82602 Abx/Therapy Injection 11:43:35 CDT CPT-J1055 Depo Provera 150 mg (Medroxyprogesterone) 15:22:54 CDT CPT-32906 Spec Collection and Handling Fee 15:10:24 CDT
--- OUTSIDE RECORDS SUMMARY | 2017-09-07 12:26 | XMS REPORT | Clinical Summary ---
Author Author Admin, MARY Organization [facility] Address Unknown Phone Unavailable Allergies, [...] Headache Drug abuse 305.90 Active Jillina Frazell FRANCHISE DEVELOPMENT MANAGER Other, mixed, or unspecified drug abuse, unspecified use Anxiety 300.00 Active Jillina Shamirl FRANCHISE DEVELOPMENT MANAGER Anxiety state, unspecified DYSURIA 788.1 Active Jimarcial [...] TABS 1 tab po bid PHENAZOPYRIDINE HCL 62027135247 Active Aylaina Harjinder VENEGASN Active CIPRO 500 MG TAB 1 tablet by mouth twice daily CIPROFLOXACIN HCL 21772151119 Active Geraldllina Shamirl FRANCHISE DEVELOPMENT MANAGER Active TRAMADOL HCL 50 MG TABS 1-2 tablets every 6 hours as needed for pain TRAMADOL HCL 42837295614 No Longer Active Geraldllina Shamirl FRANCHISE DEVELOPMENT MANAGER Active CYCLOBENZAPRINE HCL 10 MG TABS 1 tab po q pm, prn tamayo CYCLOBENZAPRINE HCL 54254263565 No Longer Active Geraldllina Shamirl FRANCHISE DEVELOPMENT MANAGER Active DIFLUCAN 100 MG TAB 1 tablet by mouth x 1 FLUCONAZOLE 76199843592 No Longer Active Jillina Fraalessandral FRANCHISE DEVELOPMENT MANAGER Active BUSPIRONE HCL 7.5 MG ORAL TABS 1 pill twice daily, for anxiety BUSPIRONE HCL 26885377307 No Longer Active Jillina Fraalessandral FRANCHISE DEVELOPMENT MANAGER Active FLAGYL 500 MG ORAL TABS 1 tab po bid for 7 days METRONIDAZOLE 36056973728 No Longer Active Jillina Frazell FRANCHISE DEVELOPMENT MANAGER Active PREDNISONE 20 MG ORAL TABS 2 po qd x 3 days PREDNISONE 11413421545 No Longer Active Twin Franks MD Active AMOXICILLIN 500 MG ORAL CAPS 1 po TID x 10 days AMOXICILLIN 84134531584 No Longer Active Twin Franks MD Active CIPRO 500 MG TAB 1 tablet by mouth twice daily CIPROFLOXACIN HCL 63611275278 No Longer Active Lev Huang MD Active FIORICET 325-50-40 MG TAB 1 tablet by mouth four times daily as needed 05/27 [id number] 95294568685 No Longer Active Lev Huang MD Active FLAGYL 500 MG TABS 1 pill by mouth twice daily METRONIDAZOLE 50647913947 No Longer Active Karen Cummins MD PhD Active PREDNISONE 20 MG TAB 2 tabs daily for 4 days, 1 tab daily for 4 days, 1/2 tab daily for 4 days PREDNISONE 24063731787 No Longer Active Karen Cummins MD PhD Active AMOXICILLIN 500 MG CAPS 2 po BID x 10 days AMOXICILLIN 51002277823 No Longer Active Twin Franks MD Active IBUPROFEN 800 MG TABS 1 tab every 8 hours as needed IBUPROFEN 64237420409 No Longer Active Twin Franks MD Active FLONASE 50 MCG/ACT SUSP 2 puffs in each nostril daily FLUTICASONE PROPIONATE 01303059175 No Longer Active Twin Franks MD Active AMOXICILLIN 500 MG CAPS 2 po BID x 10 days AMOXICILLIN 41216730915 No Longer Active Twin Franks MD Active AMOXICILLIN 500 MG CAPS 2 po BID x 10 days AMOXICILLIN 26478350294 No Longer Active Twin Franks MD Active FLONASE 50 MCG/ACT SUSP 2 puffs in each nostril daily FLONASE 50 MCG/ACT SUSP 2783190 FLUTICASONE PROPIONATE Inactive IBUPROFEN 800 MG TABS 1 tab every 8 hours as needed IBUPROFEN 800 MG TABS 517465 IBUPROFEN Inactive PREDNISONE 20 MG TAB 2 tabs daily for 4 days, 1 tab daily for 4 days, 1/2 tab daily for 4 days PREDNISONE 20 MG TAB 138970 PREDNISONE Inactive FIORICET 325-50-40 MG TAB 1 tablet by mouth four times daily as needed 05/27 FIORICET 325-50-40 MG TAB [id number] Inactive FLAGYL 500 MG ORAL TABS 1 tab po bid for 7 days FLAGYL 500 MG ORAL TABS 626415 METRONIDAZOLE Inactive BUSPIRONE HCL 7.5 MG ORAL TABS 1 pill twice daily, for anxiety BUSPIRONE HCL 7.5 MG ORAL TABS 710206 BUSPIRONE HCL Inactive DIFLUCAN 100 MG TAB 1 tablet by mouth x 1 DIFLUCAN 100 MG TAB 790968 FLUCONAZOLE Inactive CYCLOBENZAPRINE HCL 10 MG TABS 1 tab po q pm, prn tamayo CYCLOBENZAPRINE HCL 10 MG TABS 575431 CYCLOBENZAPRINE HCL Inactive TRAMADOL HCL 50 MG TABS 1-2 tablets every 6 hours as needed for pain TRAMADOL HCL 50 MG TABS 985459 TRAMADOL HCL Inactive AMOXICILLIN 500 MG CAPS 2 po BID x 10 days AMOXICILLIN 500 MG CAPS 469577 AMOXICILLIN Inactive AMOXICILLIN 500 MG CAPS 2 po BID x 10 days AMOXICILLIN 500 MG CAPS 141476 AMOXICILLIN Inactive AMOXICILLIN 500 MG CAPS 2 po BID x 10 days AMOXICILLIN 500 MG CAPS 906376 AMOXICILLIN Inactive FLAGYL 500 MG TABS 1 pill by mouth twice daily FLAGYL 500 MG TABS 738942 METRONIDAZOLE Inactive CIPRO 500 MG TAB 1 tablet by mouth twice daily CIPRO 500 MG TAB 996481 CIPROFLOXACIN HCL Inactive AMOXICILLIN 500 MG ORAL CAPS 1 po TID x 10 days AMOXICILLIN 500 MG ORAL CAPS 399680 AMOXICILLIN Inactive PREDNISONE 20 MG ORAL TABS 2 po qd x 3 days PREDNISONE 20 MG ORAL TABS 835468 PREDNISONE Inactive Vital Signs Date Name Value [...] urine, semiquantitative Negative Negative Lab Report: Chlamydia/GC APTIMA/69485 - Lab chlamydia DNA probe NOT DETECTED NOT DETECTED chlamydia DNA probe NOT DETECTED NOT DETECTED Lab Report: Chlamydia/GC APTIMA/61471 - Microbiology Neisseria gonorrhoeae DNA probe NOT DETECTED NOT DETECTED Neisseria gonorrhoeae DNA probe NOT DETECTED NOT DETECTED Lab Report: Comp. Metabolic Panel, Free Thyroxine (L), Thyroid Stimulati ... - Chemistry sodium, serum 140 mmol/L [phone]/08/16 carbon dioxide, venous blood 32.2 mmol/L 21.0-32.0 [...] 0.36-3.74 Encounters Code Encounter Date Provider Facility CPT-18957 Level 3 Est. Patient 10:46:44 CDT Sasha Grande [facility] CPT-32204 Level 3 Est. Patient 11:22:49 CDT Sasha Grande [facility] CPT-22211 Level 4 Est. Patient 16:40:46 CDT Twin Franks MD [facility] CPT-17109 Level 3 Est. Patient 14:26:47 CDT Lev Huang MD [facility] CPT-51118 Level 3 Est. Patient 15:32:55 CDT Karen Cummins MD PhD [facility] CPT-38385 Level 3 Est. Patient 16:58:58 CDT Twin Franks MD [facility] CPT-81125 Level 3 Est. Patient 15:10:24 CDT Twin Franks MD [facility] CPT-97599 Level 3 Est. Patient 11:09:46 SENIOR ADMINISTRATIVE ASSISTANT Twin Franks MD [facility] CPT-93724 Level 3 Est. Patient 16:59:32 SENIOR ADMINISTRATIVE ASSISTANT Twin Franks MD [facility] Procedures Code Procedure Name Date Entry Date Standard Description CPT-76465 IM or SQ Injection 12:06:22 CDT CPT-J1885 Toradol 30 mg (Ketorolac) 11:30:17 CDT CPT-09062 Spec Collection and Handling Fee 16:40:47 CDT CPT-J1055 Depo Provera 150 mg (Medroxyprogesterone) 09:01:32 CDT CPT-52236 Abx/Therapy Injection 09:01:32 CDT CPT-28850 Abx/Therapy Injection 11:43:35 CDT CPT-J1055 Depo Provera 150 mg (Medroxyprogesterone) 15:22:54 CDT CPT-92571 Spec Collection and Handling Fee 15:10:24 CDT
--- OUTSIDE RECORDS SUMMARY | 2017-09-07 12:26 | XMS REPORT | Clinical Summary ---
Author Author Admin, MARY [facility] Address Unknown Phone Unavailable Allergies, [...] drug abuse, unspecified use Anxiety 300.00 Active Geraldllina Frazell MANAGER HOME IMPROVEMENT Anxiety state, unspecified DYSURIA 788.1 Active Jillina Harjinder VENEGASN Dysuria SINUSITIS, ACUTE ICD-461.9 Inactive [...] TABS 1 tab po bid PHENAZOPYRIDINE HCL 35727028044 Active Aylaina Harjinder VENEGASN Active CIPRO 500 MG TAB 1 tablet by mouth twice daily CIPROFLOXACIN HCL 99455991189 Active Geraldllina Shamirl MANAGER HOME IMPROVEMENT Active TRAMADOL HCL 50 MG TABS 1-2 tablets every 6 hours as needed for pain TRAMADOL HCL 80425652587 No Longer Active Geraldllina Shamirl MANAGER HOME IM[employer]OVEMENT Active CYCLOBENZAPRINE HCL 10 MG TABS 1 tab po q pm, prn tamayo CYCLOBENZAPRINE HCL 19225229487 No Longer Active Jillina Shamirl MANAGER HOME IMPROVEMENT Active DIFLUCAN 100 MG TAB 1 tablet by mouth x 1 FLUCONAZOLE 96308520764 No Longer Active Jillina Frazell MANAGER HOME IMPROVEMENT Active BUSPIRONE HCL 7.5 MG ORAL TABS 1 pill twice daily, for anxiety BUSPIRONE HCL 78992489367 No Longer Active Jillina Frazell MANAGER HOME IMPROVEMENT Active FLAGYL 500 MG ORAL TABS 1 tab po bid for 7 days METRONIDAZOLE 09964591697 No Longer Active Jillina Frazell MANAGER HOME IMPROVEMENT Active PREDNISONE 20 MG ORAL TABS 2 po qd x 3 days PREDNISONE 74998813783 No Longer Active Twin Franks MD Active AMOXICILLIN 500 MG ORAL CAPS 1 po TID x 10 days AMOXICILLIN 27401738031 No Longer Active Twin Franks MD Active CIPRO 500 MG TAB 1 tablet by mouth twice daily CIPROFLOXACIN HCL 50187736731 No Longer Active Lev Huang MD Active FIORICET 325-50-40 MG TAB 1 tablet by mouth four times daily as needed 05/27 [id number] 23182282495 No Longer Active Lev Huang MD Active FLAGYL 500 MG TABS 1 pill by mouth twice daily METRONIDAZOLE 12849495723 No Longer Active Karen Cummins MD PhD Active PREDNISONE 20 MG TAB 2 tabs daily for 4 days, 1 tab daily for 4 days, 1/2 tab daily for 4 days PREDNISONE 34758313407 No Longer Active Karen Cummins MD PhD Active AMOXICILLIN 500 MG CAPS 2 po BID x 10 days AMOXICILLIN 54078404437 No Longer Active Twin Franks MD Active IBUPROFEN 800 MG TABS 1 tab every 8 hours as needed IBUPROFEN 49616012697 No Longer Active Twin Franks MD Active FLONASE 50 MCG/ACT SUSP 2 puffs in each nostril daily FLUTICASONE PROPIONATE 20545772350 No Longer Active Tiwn Franks MD Active AMOXICILLIN 500 MG CAPS 2 po BID x 10 days AMOXICILLIN 18955968364 No Longer Active Twin Franks MD Active AMOXICILLIN 500 MG CAPS 2 po BID x 10 days AMOXICILLIN 43886388461 No Longer Active Twin Franks MD Active FLONASE 50 MCG/ACT SUSP 2 puffs in each nostril daily FLONASE 50 MCG/ACT SUSP 2098649 FLUTICASONE PROPIONATE Inactive IBUPROFEN 800 MG TABS 1 tab every 8 hours as needed IBUPROFEN 800 MG TABS 703100 IBUPROFEN Inactive PREDNISONE 20 MG TAB 2 tabs daily for 4 days, 1 tab daily for 4 days, 1/2 tab daily for 4 days PREDNISONE 20 MG TAB 117271 PREDNISONE Inactive FIORICET 325-50-40 MG TAB 1 tablet by mouth four times daily as needed 05/27 FIORICET 325-50-40 MG TAB [id number] Inactive FLAGYL 500 MG ORAL TABS 1 tab po bid for 7 days FLAGYL 500 MG ORAL TABS 519789 METRONIDAZOLE Inactive BUSPIRONE HCL 7.5 MG ORAL TABS 1 pill twice daily, for anxiety BUSPIRONE HCL 7.5 MG ORAL TABS 017036 BUSPIRONE HCL Inactive DIFLUCAN 100 MG TAB 1 tablet by mouth x 1 DIFLUCAN 100 MG TAB 332966 FLUCONAZOLE Inactive CYCLOBENZAPRINE HCL 10 MG TABS 1 tab po q pm, prn tamayo CYCLOBENZAPRINE HCL 10 MG TABS 133474 CYCLOBENZAPRINE HCL Inactive TRAMADOL HCL 50 MG TABS 1-2 tablets every 6 hours as needed for pain TRAMADOL HCL 50 MG TABS 246300 TRAMADOL HCL Inactive AMOXICILLIN 500 MG CAPS 2 po BID x 10 days AMOXICILLIN 500 MG CAPS 706513 AMOXICILLIN Inactive AMOXICILLIN 500 MG CAPS 2 po BID x 10 days AMOXICILLIN 500 MG CAPS 098063 AMOXICILLIN Inactive AMOXICILLIN 500 MG CAPS 2 po BID x 10 days AMOXICILLIN 500 MG CAPS 360703 AMOXICILLIN Inactive FLAGYL 500 MG TABS 1 pill by mouth twice daily FLAGYL 500 MG TABS 163103 METRONIDAZOLE Inactive CIPRO 500 MG TAB 1 tablet by mouth twice daily CIPRO 500 MG TAB 321842 CIPROFLOXACIN HCL Inactive AMOXICILLIN 500 MG ORAL CAPS 1 po TID x 10 days AMOXICILLIN 500 MG ORAL CAPS 620915 AMOXICILLIN Inactive PREDNISONE 20 MG ORAL TABS 2 po qd x 3 days PREDNISONE 20 MG ORAL TABS 355800 PREDNISONE Inactive Vital Signs Date Name Value [...] W/DIFF, UHCG, UADIP W/MICRO, AUTO - Hematology monocytes as percent of blood leukocytes 5.7 % 1.7-9.3 neutrophils as percent of blood leukocytes 63.2 % 42.2-75.2 leukocyte count, blood 7.4 10^3/MM^3 10*3/mm3 4.6-10.2 lymphocytes as percent of blood leukocytes 24.2 [...] urine, semiquantitative Negative Negative Lab Report: Chlamydia/GC APTIMA/89911 - Lab chlamydia DNA probe NOT DETECTED NOT DETECTED chlamydia DNA probe NOT DETECTED NOT DETECTED Lab Report: Chlamydia/GC APTIMA/27831 - Microbiology Neisseria gonorrhoeae DNA probe NOT DETECTED NOT DETECTED Neisseria gonorrhoeae DNA probe NOT DETECTED NOT DETECTED Lab Report: Comp. Metabolic Panel, Free Thyroxine (L), Thyroid Stimulati ... - Chemistry carbon dioxide, venous blood 32.2 mmol/L 21.0-32.0 potassium, serum 4.5 mmol/L 3.5-5.2 chloride, serum 106 mmol/L 98-107 sodium, serum 140 mmol/L 058-278 8701/08/16 blood glucose 85 mg/dL 65-110 urea nitrogen, blood 6 mg/dL 7-18 creatinine, serum 0.71 mg/dL 0.60-1.30 alanine aminotransferase (SGPT), serum 28 U/L 12-78 aspartate aminotransferase (SGOT), serum 19 U/L 15-37 calcium, serum 9.0 mg/dL 8.5-10.1 bilirubin, serum, total 0.50 mg/dL 0.00-1.00 thyroxine, serum, free 0.92 ng/dL 0.59-1.17 TSH 0.77 m[iU]/mL 0.36-3.74 Encounters Code Encounter Date Provider Facility CPT-10903 Level 3 Est. Patient 10:46:44 CDT Sasha Grande [facility] CPT-26953 Level 3 Est. Patient 11:22:49 CDT Sasha Grande [facility] CPT-71059 Level 4 Est. Patient 16:40:46 CDT Twin Franks MD [facility] CPT-12265 Level 3 Est. Patient 14:26:47 CDT Lev Huang MD [facility] CPT-87029 Level 3 Est. Patient 15:32:55 CDT Karen Cummins MD PhD [facility] CPT-00756 Level 3 Est. Patient 16:58:58 CDT Twin Franks MD [facility] CPT-02780 Level 3 Est. Patient 15:10:24 CDT Twin Franks MD [facility] CPT-29839 Level 3 Est. Patient 11:09:46 TELEMETRY MONITOR Twin Franks MD [facility] CPT-91988 Level 3 Est. Patient 16:59:32 TELEMETRY MONITOR Twin Franks MD [facility] Procedures Code Procedure Name Date Entry Date Standard Description CPT-26957 IM or SQ Injection 12:06:22 CDT CPT-J1885 Toradol 30 mg (Ketorolac) 11:30:17 CDT CPT-88091 Spec Collection and Handling Fee 16:40:47 CDT CPT-J1055 Depo Provera 150 mg (Medroxyprogesterone) 09:01:32 CDT CPT-73874 Abx/Therapy Injection 09:01:32 CDT CPT-80995 Abx/Therapy Injection 11:43:35 CDT CPT-J1055 Depo Provera 150 mg (Medroxyprogesterone) 15:22:54 CDT CPT-71835 Spec Collection and Handling Fee 15:10:24 CDT
--- OUTSIDE RECORDS SUMMARY | 2017-09-07 12:27 | XMS REPORT | Clinical Summary ---
Author Author Admin, MARY Organization [facility] Address Unknown Phone Unavailable [...] not specified Sinusitis, acute 461.9 Resolved Twin Fransk MD Acute sinusitis, unspecified Vaginal discharge 623.5 Resolved Twin Franks MD Leukorrhea, not specified as infective Headache 784.0 Active Jillina Harjinder GUERRERO Headache Drug abuse 305.90 Active Jillina Frazell FIRER [employer] Other, mixed, or unspecified drug abuse, unspecified use Anxiety 300.00 Active Jillina Frazell [employer] Anxiety state, unspecified DYSURIA 788.1 Resolved Twin [...] Twin Franks MD Vaginal discharge ICD-623.5 Inactive Twni Franks MD Medication List Medication Instructions Start Date Stop Date Generic Name NDC Status Provider Patient Instruction FLAGYL 500 MG ORAL TABLET 4 tabs (2gms) po x1. do not mix with ETOH METRONIDAZOLE 09212523472 Active Sasha Grande APRN Active MACROBID 100 MG ORAL CAPSULE 1 cap by mouth twice daily NITROFURANTOIN MONOHYD MACRO 14156943781 Active Geraldllina Harjinder GUERRERO Active BACTRIM DS 800-160 MG ORAL TABLET 1 po BID x 7 days SULFAMETHOXAZOLE-TRIMETHOPRIM 37431806932 No Longer Active Twin Franks MD Active CELEXA 20 MG ORAL TABLET Take one tab po daily CITALOPRAM HYDROBROMIDE 79578407901 Active Twin Franks MD Active PHENAZOPYRIDINE HCL 100 MG ORAL TABLET 1 tab po bid PHENAZOPYRIDINE HCL 41184361696 No Longer Active Twin Franks MD Active CIPRO 500 MG ORAL TABLET 1 tablet by mouth twice daily CIPROFLOXACIN HCL 63742027942 No Longer Active Twin Franks MD Active TRAMADOL HCL 50 MG ORAL TABLET 1-2 tablets every 6 hours as needed for pain TRAMADOL HCL 36058425203 No Longer Active Jillina Frazell FIRER [employer] Active CYCLOBENZAPRINE HCL 10 MG ORAL TABLET 1 tab po q pm, prn tamayo CYCLOBENZAPRINE HCL 44249812119 No Longer Active Jillina Frazell FIRER [employer] Active DIFLUCAN 100 MG ORAL TABLET 1 tablet by mouth x 1 FLUCONAZOLE 31060128441 No Longer Active Jillina Frazell FIR[employer] Active BUSPIRONE HCL 7.5 MG ORAL TABLET 1 pill twice daily, for anxiety BUSPIRONE HCL 60126781306 No Longer Active Jillina Frazell FIRER [employer]N Active FLAGYL 500 MG ORAL TABLET 1 tab po bid for 7 days METRONIDAZOLE 04409795547 No Longer Active Jillina Fraalessandral FIRER GLOST KILN Active PREDNISONE 20 MG ORAL TABLET 2 po qd x 3 days PREDNISONE 21249817036 No Longer Active Twin Franks MD Active AMOXICILLIN 500 MG ORAL CAPSULE 1 po TID x 10 days AMOXICILLIN 74649313645 No Longer Active Twin Franks MD Active CIPRO 500 MG ORAL TABLET 1 tablet by mouth twice daily CIPROFLOXACIN HCL 01690766652 No Longer Active Lev Huang MD Active FIORICET 325-50-40 MG TAB 1 tablet by mouth four times daily as needed 05/27 [id number] 74348130944 No Longer Active Lev Huang MD Active FLAGYL 500 MG ORAL TABLET 1 pill by mouth twice daily METRONIDAZOLE 61165727295 No Longer Active Karen Cummins MD PhD Active PREDNISONE 20 MG ORAL TABLET 2 tabs daily for 4 days, 1 tab daily for 4 days, 1/2 tab daily for 4 days PREDNISONE 11363924562 No Longer Active Karen Cummins MD PhD Active AMOXICILLIN 500 MG ORAL CAPSULE 2 po BID x 10 days AMOXICILLIN 42442524394 No Longer Active Twin Franks MD Active IBUPROFEN 800 MG ORAL TABLET 1 tab every 8 hours as needed 03/15 IBUPROFEN 21551546024 No Longer Active Twin Franks MD Active FLONASE 50 MCG/ACT NASAL SUSPENSION 2 puffs in each nostril daily FLUTICASONE PROPIONATE 97159883794 No Longer Active Twin Franks MD Active AMOXICILLIN 500 MG ORAL CAPSULE 2 po BID x 10 days AMOXICILLIN 97181345720 No Longer Active Twin Franks MD Active AMOXICILLIN 500 MG ORAL CAPSULE 2 po BID x 10 days AMOXICILLIN 81428204425 No Longer Active Twin Franks MD Active FLONASE 50 MCG/ACT NASAL SUSPENSION 2 puffs in each nostril daily FLONASE 50 MCG/ACT NASAL SUSPENSION 6193251 FLUTICASONE PROPIONATE Inactive IBUPROFEN 800 MG ORAL TABLET 1 tab every 8 hours as needed 03/15 IBUPROFEN 800 MG ORAL TABLET 534370 IBUPROFEN Inactive PREDNISONE 20 MG ORAL TABLET 2 tabs daily for 4 days, 1 tab daily for 4 days, 1/2 tab daily for 4 days PREDNISONE 20 MG ORAL TABLET 844123 PREDNISONE Inactive FIORICET 325-50-40 MG TAB 1 tablet by mouth four times daily as needed 05/27 FIORICET 325-50-40 MG TAB [id number] Inactive FLAGYL 500 MG ORAL TABLET 1 tab po bid for 7 days FLAGYL 500 MG ORAL TABLET 822079 METRONIDAZOLE Inactive BUSPIRONE HCL 7.5 MG ORAL TABLET 1 pill twice daily, for anxiety BUSPIRONE HCL 7.5 MG ORAL TABLET 406345 BUSPIRONE HCL Inactive DIFLUCAN 100 MG ORAL TABLET 1 tablet by mouth x 1 DIFLUCAN 100 MG ORAL TABLET 769510 FLUCONAZOLE Inactive CYCLOBENZAPRINE HCL 10 MG ORAL TABLET 1 tab po q pm, prn tamayo 10/11 CYCLOBENZAPRINE HCL 10 MG ORAL TABLET 034423 CYCLOBENZAPRINE HCL Inactive TRAMADOL HCL 50 MG ORAL TABLET 1-2 tablets every 6 hours as needed for pain TRAMADOL HCL 50 MG ORAL TABLET 135691 TRAMADOL HCL Inactive CIPRO 500 MG ORAL TABLET 1 tablet by mouth twice daily CIPRO 500 MG ORAL TABLET 657007 CIPROFLOXACIN HCL Inactive PHENAZOPYRIDINE HCL 100 MG ORAL TABLET 1 tab po bid PHENAZOPYRIDINE HCL 100 MG ORAL TABLET 7783181 PHENAZOPYRIDINE HCL Inactive AMOXICILLIN 500 MG ORAL CAPSULE 2 po BID x 10 days AMOXICILLIN 500 MG ORAL CAPSULE 124103 AMOXICILLIN Inactive AMOXICILLIN 500 MG ORAL CAPSULE 2 po BID x 10 days AMOXICILLIN 500 MG ORAL CAPSULE 134680 AMOXICILLIN Inactive AMOXICILLIN 500 MG ORAL CAPSULE 2 po BID x 10 days AMOXICILLIN 500 MG ORAL CAPSULE 401494 AMOXICILLIN Inactive FLAGYL 500 MG ORAL TABLET 1 pill by mouth twice daily FLAGYL 500 MG ORAL TABLET 828726 METRONIDAZOLE Inactive CIPRO 500 MG ORAL TABLET 1 tablet by mouth twice daily CIPRO 500 MG ORAL TABLET 954936 CIPROFLOXACIN HCL Inactive AMOXICILLIN 500 MG ORAL CAPSULE 1 po TID x 10 days AMOXICILLIN 500 MG ORAL CAPSULE 055756 AMOXICILLIN Inactive PREDNISONE 20 MG ORAL TABLET 2 po qd x 3 days PREDNISONE 20 MG ORAL TABLET 772134 PREDNISONE Inactive BACTRIM DS 800-160 MG ORAL TABLET 1 po BID x 7 days BACTRIM DS 800-160 MG ORAL TABLET 599266 SULFAMETHOXAZOLE-TRIMETHOPRIM Inactive Vital Signs Date Name Value [...] W/DIFF, UHCG, UADIP W/MICRO, AUTO - Hematology lymphocytes as percent of blood leukocytes 24.2 % 20.5-51.1 erythrocyte (RBC) count 4.46 10^6/MM^3 10*6/mm3 3.80-5.80 hemoglobin, blood 15.0 g/dL 12.0-16.0 hematocrit, blood 43.5 % 37.0-47.0 mean corpuscular volume, RBC 97 fL 80-97 mean corpuscular hemoglobin, RBC 33.6 pg 27.0-31.2 mean corpuscular hemoglobin concentration, RBC 34.5 G/DL % 31.8- 35.4 red blood cell distribution width 12.5 % 13.0-18.0 platelet count 229 10^3/MM^3 10*3/mm3 445-715 1158/08/16 monocytes as percent of blood leukocytes 5.7 [...] urine, semiquantitative Negative Negative Lab Report: Chlamydia/GC APTIMA/57261 - Lab chlamydia DNA probe NOT DETECTED NOT DETECTED chlamydia DNA probe NOT DETECTED NOT DETECTED chlamydia DNA probe NOT DETECTED NOT DETECTED Lab Report: Chlamydia/GC APTIMA/61093 - Microbiology Neisseria gonorrhoeae DNA probe NOT DETECTED NOT DETECTED Neisseria gonorrhoeae DNA probe NOT DETECTED NOT DETECTED Neisseria gonorrhoeae DNA probe NOT DETECTED NOT DETECTED Lab Report: Comp. Metabolic Panel, Free Thyroxine (L), Thyroid Stimulati ... - Chemistry sodium, serum 140 mmol/L 550-516 7634/08/16 carbon dioxide, venous blood 32.2 mmol/L 21.0-32.0 [...] 5.0-8.5 Encounters Code Encounter Date Provider Facility CPT-28517 Level 3 Est. Patient 11:19:27 TACTICAL INTELLIGENCE OFFICER Sasha Grande [facility] CPT-88774 Level 3 Est. Patient 16:51:52 CDT Twin Franks MD [facility] CPT-04267 Level 3 Est. Patient 10:46:44 CDT Sasha Grande [facility] CPT-05028 Level 3 Est. Patient 11:22:49 CDT Sasha Grande [facility] CPT-48077 Level 4 Est. Patient 16:40:46 CDT Twin Franks MD [facility] CPT-69257 Level 3 Est. Patient 14:26:47 CDT Lev Huang MD [facility] CPT-75259 Level 3 Est. Patient 15:32:55 CDT Karen Cummins MD PhD [facility] CPT-70372 Level 3 Est. Patient 16:58:58 CDT Twin Franks MD [facility] CPT-38102 Level 3 Est. Patient 15:10:24 CDT Twin Franks MD [facility] CPT-26170 Level 3 Est. Patient 11:09:46 TACTICAL INTELLIGENCE OFFICER Twin Franks MD [facility] CPT-80785 Level 3 Est. Patient 16:59:32 TACTICAL INTELLIGENCE OFFICER Twin Franks MD [facility] Procedures Code Procedure Name Date Entry Date Standard Description CPT-66996 Spec Collection and Handling Fee 11:23:53 TACTICAL INTELLIGENCE OFFICER CPT-41446 IM or SQ Injection 12:06:22 CDT CPT-J1885 Toradol 30 mg (Ketorolac) 11:30:17 CDT CPT-57466 Spec Collection and Handling Fee 16:40:47 CDT CPT-J1055 Depo Provera 150 mg (Medroxyprogesterone) 09:01:32 CDT CPT-18324 Abx/Therapy Injection 09:01:32 CDT CPT-07261 Abx/Therapy Injection 11:43:35 CDT CPT-J1055 Depo Provera 150 mg (Medroxyprogesterone) 15:22:54 CDT CPT-87477 Spec Collection and Handling Fee 15:10:24 CDT
--- OUTSIDE RECORDS SUMMARY | 2017-09-07 12:27 | XMS REPORT | Clinical Summary ---
Author Author Admin, MARY Organization [facility] Address Unknown Phone Unavailable Allergies, Adverse Reactions, Alerts Allergy Name Reaction Description Start Date Severity Status Provider No Known Allergies Alexandra Salvadorford [facility] Conditions or Problems Problem Name Problem [...] 1 pill by mouth twice daily METRONIDAZOLE 53613633183 Active Karen Cummins MD PhD Active PREDNISONE 20 MG TAB 2 tabs daily for 4 days, 1 tab daily for 4 days, 1/2 tab daily for 4 days PREDNISONE 58067290144 No Longer Active Karen Cummins MD PhD Active FIORICET 325-50-40 MG TAB 1 tablet by mouth four times daily as needed 05/27 [id number] 33974138054 Active Twin Franks MD Active AMOXICILLIN 500 MG CAPS 2 po BID x 10 days AMOXICILLIN 98244048292 No Longer Active Twin Franks MD Active IBUPROFEN 800 MG TABS 1 tab every 8 hours as needed IBUPROFEN 96703290035 No Longer Active Twin Franks MD Active FLONASE 50 MCG/ACT SUSP 2 puffs in each nostril daily FLUTICASONE PROPIONATE 98926453707 No Longer Active Twin Franks MD Active AMOXICILLIN 500 MG CAPS 2 po BID x 10 days AMOXICILLIN 96434054499 No Longer Active Twin Franks MD Active AMOXICILLIN 500 MG CAPS 2 po BID x 10 days AMOXICILLIN 48257521400 No Longer Active Twin Franks MD Active FLONASE 50 MCG/ACT SUSP 2 puffs in each nostril daily FLONASE 50 MCG/ACT SUSP 486723 FLUTICASONE PROPIONATE Inactive IBUPROFEN 800 MG TABS 1 tab every 8 hours as needed IBUPROFEN 800 MG TABS 683906 IBUPROFEN Inactive PREDNISONE 20 MG TAB 2 tabs daily for 4 days, 1 tab daily for 4 days, 1/2 tab daily for 4 days PREDNISONE 20 MG TAB 526173 PREDNISONE Inactive AMOXICILLIN 500 MG CAPS 2 po BID x 10 days AMOXICILLIN 500 MG CAPS 379773 AMOXICILLIN Inactive AMOXICILLIN 500 MG CAPS 2 po BID x 10 days AMOXICILLIN 500 MG CAPS 298093 AMOXICILLIN Inactive AMOXICILLIN 500 MG CAPS 2 po BID x 10 days AMOXICILLIN 500 MG CAPS 172679 AMOXICILLIN Inactive Vital Signs Date Name Value Unit Range Description blood pressure, diastolic - 8462-4 70 mm[Hg] BP lee blood pressure, systolic - 8480-6 111 mm[Hg] BP sys pulse rate E&M - 8867-4 72 /min Heart rate temperature E&M 98.2 [degF] Body temperature weight E&M - 3141-9 113.12 [lb_av] Weight Measured Diagnostic Results Date Name Value Unit Range Description Lab Report: UADIP W/MICRO, AUTO - Chemistry protein, total urine random Negative mg/dL Negative RBC, urine, dipstick Negative Negative Lab Report: UADIP W/MICRO, AUTO - Urinalysis urobilinogen, urine, semiquantitative (dipstick) 0.2 Normal leukocyte esterase, urine, by dipstick 2+ Negative nitrite, urine, semiquantitative Negative Negative glucose, urine, semiquantitative Negative Negative ketones, urine, by test strip Negative Negative bilirubin, urine Negative Negative urine color Yellow Colorless;Lightyellow;Straw;Yellow appearance, urine Clear Clear specific gravity, urine 1.020 1.000-1.030 pH, urine, semiquantitative 6.5 5.0-8.5 Encounters Code Encounter Date Provider Facility CPT-38947 Level 3 Est. Patient 15:32:55 CDT Kraen Cummins MD PhD [facility] CPT-26080 Level 3 Est. Patient 16:58:58 CDT Twin Franks MD [facility] CPT-83471 Level 3 Est. Patient 15:10:24 CDT Twin Franks MD [facility] CPT-89487 Level 3 Est. 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
--- NOTE | 2017-09-07 12:39 | ED General ---
General Stated Complaint: INJ WITH METH, ARM REACTION Source of Information: Patient Exam Limitations: No Limitations History of Present Illness Time Seen by Provider: 12:36 Initial Comments To ER by private vehicle with reports of methamphetamine injection into her arm on Thursday the of this month. This was voluntary and not forced on her. She has a burning sensation and pain in both arms since then. She also has shortness of breath. She states normally when she injects methamphetamine she gets a rash in her chest but this one is in her head. She denies fevers or chills. Severity: Moderate Allergies and Home Medications Allergies Coded Allergies: No Known Drug Allergies (Unverified , 07/03/11) Home Medications Amoxicillin/Clavulanate K 1 Each Tablet, 1 EACH PO BID, #14 (Reported) Hydrocodone Bit/Acetaminophen 1 Each Tablet, 1 EACH PO Q6 PRN, (Reported) Hydrocodone Bit/Acetaminophen 1 Each Tablet, 1-2 EACH PO Q4HR PRN, #40 (Reported ) Prednisone 20 Mg Tab, 20 MG PO DAILY, (Reported) Pseudoephedrine Hcl 30 Mg Tab, 1 TAB PO TID PRN, (Reported) [prednisone] , 60 TAB PO DAILY for 2 Days, (Reported) [prednisone] , 40 TAB PO DAILY for 2 Days, (Reported) [prednisone] , 20 TAB PO DAILY for 2 Days, (Reported) after last dose of prednisone 20mg daily for 2 days stop Constitutional: see HPI EENTM: see HPI Respiratory: no symptoms reported Cardiovascular: no symptoms reported Genitourinary: no symptoms reported Musculoskeletal: no symptoms reported Skin: see HPI Psychiatric/Neurological: No Symptoms Reported Past Zleezci-Aowdok-Qkckzl Hx Patient Social History Recent Foreign Travel: No Contact w/Someone Who Travel: No Reproductive System Hx Reproductive Disorders: No Physical Exam Vital Signs Capillary Refill : General Appearance: No Apparent Distress, WD/WN Eyes: Bilateral Eye Normal Inspection, Bilateral Eye PERRL, Bilateral Eye EOMI HEENT: PERRL/EOMI, TMs Normal Neck: Full Range of Motion, Normal Inspection Respiratory: Normal Breath Sounds, No Accessory Muscle Use, No Respiratory Distress Gastrointestinal: Normal Bowel Sounds, Non Tender, Soft Neurologic/Psychiatric: Alert, Oriented x3, No Motor/Sensory Deficits Skin: Normal Color, Warm/Dry, Other (there is very mild erythema of both hands. There is no swelling. There are multiple track alston to the antecubital fossa of each arm. There is no abscess at this time, no erythema and no swelling. There is a mild ecchymosis to the right antecubital fossa. Patient is unable to sit still and speaks very fast.) Progress/Results/Core Measures Suspected Sepsis SIRS Temperature: Pulse: Respiratory Rate: Blood Pressure / Mean: Results/Orders My Orders Orders - MARISOL KRUGER APRN Cbc With Automated Diff (09/07/17 12:35) Comprehensive Metabolic Panel (09/07/17 12:35) Ua Culture If Indicated (09/07/17 12:35) Drug Screen Stat (Urine) (09/07/17 12:35) Alprazolam Tablet (Xanax Tablet) (09/07/17 12:45) Vital Signs/I&O Capillary Refill : Departure Impression Impression: Primary Impression: Methamphetamine use Disposition: 01 HOME, SELF-CARE Condition: Stable Departure-Patient Inst. Decision time for Depature: 12:38 Referrals: SHWETA GARCIA MD (PCP/Family) Primary Care Physician Patient Instructions: ALCOHOL AND SUBSTANCE ABUSE, OUTPT SUBSTANCE ABUSE RESOURCE MARISOL KRUGER APRN Sep 07, 2017 12:39
[2017-09-07] MEDS ORDERED: HYDR-700 (12:44)
[2017-09-07] MEDS ORDERED: CITA20TA12 (12:44)
[2017-09-07] MEDS ORDERED: ALPRAZolam 0.25 MG (XANAX) TAB PO ONE (12:45)
[2017-09-07] MEDS ORDERED: ALPRAZolam 1 MG (XANAX) TAB PO SCH (12:45)
[2017-09-07 12:56] LABS: BASOPHILS % (AUTO) 0 % (0-10); EOSINOPHILS # (AUTO) 0.1 10^3/uL (0.0-0.3); EOSINOPHILS % (AUTO) 1 % (0-10); LYMPHOCYTES # (AUTO) 1.8 X 10^3 (1.0-4.0); LYMPHOCYTES % (AUTO) 13 % (12-44); MEAN CORPUSCULAR HEMOGLOBIN 33 PG (25-34); MEAN CORPUSCULAR HGB CONC 37 G/DL (32-36); MEAN CORPUSCULAR VOLUME 90 FL (80-99); MEAN PLATELET VOLUME 9.9 FL (7.4-10.4); MONOCYTES # (AUTO) 1.1 X 10^3 (0.0-1.0); MONOCYTES % (AUTO) 8 % (0-12); NEUTROPHILS % (AUTO) 78 % (42-75); PLATELET COUNT 316 10^3/uL (130-400); RED BLOOD COUNT 4.74 10^6/uL (4.35-5.85); RED CELL DISTRIBUTION WIDTH 11.6 % (10.0-14.5)
[2017-09-07 13:17] LABS: BAND NEUTROPHILS 0 %; BASOPHILS % (MANUAL) 0 %; EOSINOPHILS % (MANUAL) 1 %; LYMPHOCYTES % (MANUAL) 10 %; NEUTROPHILS % (MANUAL) 78 %
[2017-09-07 13:27] LABS: ALANINE AMINOTRANSFERASE 25 U/L (0-55); ANION GAP 10 MMOL/L (5-14); ASPARTATE AMINO TRANSFERASE 30 U/L (5-34); BILIRUBIN,TOTAL 2.2 MG/DL (0.1-1.0); BLOOD UREA NITROGEN 11 MG/DL (7-18); BUN/CREATININE RATIO 14; CALCIUM 10.2 MG/DL (8.5-10.1); CARBON DIOXIDE 24 MMOL/L (21-32); CHLORIDE 104 MMOL/L (98-107); CREATININE SERUM 0.76 MG/DL (0.60-1.30); GFR ESTIMATED > 60; GLUCOSE 120 MG/DL (70-105); POTASSIUM 3.2 MMOL/L (3.6-5.0); SODIUM 138 MMOL/L (135-145); TOTAL PROTEIN 8.4 GM/DL (6.4-8.2); hs C REACTIVE PROTEIN 0.81 MG/DL (0.00-0.50)
[2017-09-07 14:03] LABS: BILIRUBIN,URINE NEGATIVE (NEGATIVE); KETONES,URINE 3+ (NEGATIVE); LEUKOCYTE ESTERASE ,URINE 1+ (NEGATIVE); NITRITE,URINE NEGATIVE (NEGATIVE); PH,URINE 5 (5-9); PROTEIN,URINE 2+ (NEGATIVE); UROBILINOGEN,URINE 1 MG/DL (NORMAL)
[2017-09-07 14:47] LABS: CALCIUM OXALATE CRYSTALS,UR RARE /LPF
[2017-09-07 14:56] VITALS: BP 128/70
== END 2017-09-07 14:54 | disposition home or self-care (01) ==
LOC: EDUNIT# 11:58 → ER 12:03
DX: F15.90 Other stimulant use, unspecified, uncomplicated (principal)
CPT/HCPCS: 36415; 80053; 80306; 81000; 85007; 85027; 86141; 87088; 99283